=== PATIENT | female | born 1970 | race Caucasian/White ===

== ENCOUNTER → 2020-05-03 13:51 | Outpatient (BNVA) | payer MEDICAID, SELFPAY | PROVIDERS: PCP Registered Nurse; Visit Provider Nurse Practitioner Family | DX: Z01.818 Encounter for other preprocedural examination (principal); K21.9 Gastro-esophageal reflux disease without esophagitis; Z79.899 Other long term (current) drug therapy | CPT/HCPCS: 99212 ==

== ENCOUNTER 2020-09-06 11:42 | Outpatient (REF) | payer MEDICAID, SELFPAY ==
--- NOTE | ~2020-09-06 | MM_ITS ---
EXAMINATION: MM SCREENING DIGITAL BREAST TOMOSYNTHESIS, BILATERAL CLINICAL INFORMATION: Screening. Asymptomatic. The lifetime risk of breast cancer based on the Tyrer-Cuzick Model is 4%. COMPARISON: Mammography: 04/02/2019, 10/09/2017 TECHNIQUE: Digital breast tomosynthesis is performed in both the craniocaudal and mediolateral oblique views along with computer-aided detection (CAD). Synthesized 2D images are generated from the tomosynthesis. FINDINGS: There are scattered areas of fibroglandular density (ACR BI-RADS breast composition Category b). There are no significant masses, abnormal calcifications, or other abnormalities. Parenchymal pattern is similar to prior exams. No developing density. No significant changes. The skin contours are smooth. MM/MM tomosynthesis screening BI IMPRESSION: No mammographic evidence of malignancy. ASSESSMENT: BI-RADS 1: Negative RECOMMENDATION: Routine annual mammography screening. This patient's information was entered into a reminder system with a target due date for their next mammogram.
== END 2020-09-06 11:43 | disposition home or self-care (01) ==
LOC: HO.MAMMO 11:42
PROVIDERS: PCP Registered Nurse; Visit Provider Registered Nurse
DX: Z12.31 Encounter for screening mammogram for malignant neoplasm of breast (principal)
CPT/HCPCS: 77063; 77067

== ENCOUNTER 2020-09-21 07:56 | Outpatient (REF) | payer MEDICAID, SELFPAY ==
--- NOTE | ~2020-09-21 | XR_ITS ---
EXAMINATION: XR BILATERAL HAND/WRIST CLINICAL INFORMATION: Pain bilateral hand. COMPARISON: None. TECHNIQUE: 3 views each hand. FINDINGS: Left hand: There is minimal loss of PIP and DIP joint space without any bony erosive changes, periarticular spurring. Visualized wrist joints are unremarkable. No soft tissue calcification. Right hand: There is mild loss of PIP and DIP joint space. The MCP and anterior carpal joint space is maintained normal. No bony erosive changes or periarticular spurring. No soft tissue calcification or swelling seen. 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
--- NOTE | ~2020-09-21 | XR_ITS ---
EXAMINATION: XR BILATERAL HAND/WRIST CLINICAL INFORMATION: Pain bilateral hand. COMPARISON: None. TECHNIQUE: 3 views each hand. FINDINGS: Left hand: There is minimal loss of PIP and DIP joint space without any bony erosive changes, periarticular spurring. Visualized wrist joints are unremarkable. No soft tissue calcification. Right hand: There is mild loss of PIP and DIP joint space. The MCP and anterior carpal joint space is maintained normal. No bony erosive changes or periarticular spurring. No soft tissue calcification or swelling seen. 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
[2020-09-21 09:47] LABS: MANUAL DIFF FLAG NO
[2020-09-21 09:53] LABS: Basophils Absolute Auto 0.1 X10*3/uL (0.0-0.2); Basophils Percent Auto 0.8 % (0-2); Eosinophils Absolute Auto 0.4 X10*3/uL (0.0-0.4); Hemoglobin 12.5 g/dl (12.0-16.0); Imm Gran Abs Auto 0.01 X10*3/uL (0.00-0.03); Imm Gran Pct Auto 0.1 % (0.0-0.4); Lymphocytes Absolute Auto 3.8 X10*3/uL (1.2-4.9); Lymphocytes Percent Auto 39.3 % (20-40); Mean Corpuscular HGB Conc 32.9 g/dl (31.0-35.0); Mean Corpuscular Hemoglobin 30.6 pg (27.0-33.0); Mean Corpuscular Volume 93.1 fL (80-98); Mean Platelet Volume 11.9 fL (9.4-12.3); Monocytes Absolute Auto 0.7 X10*3/uL (0.1-1.2); Monocytes Percent Auto 7.4 % (2-11); Neutrophils Absolute Auto 4.7 X10*3/uL (2.0-8.3); Neutrophils Percent Auto 48.4 % (45-73); Platelet Count 265 X10*3/uL (160-400); Red Blood Count 4.08 X10*6/uL (4.20-5.50); Red Cell Distribution Width 13.9 % (11.0-16.0); White Blood Count 9.6 X10*3/uL (4.8-10.8)
[2020-09-21 10:28] LABS: Rheumatoid Factor < 15.0 IU/mL (<15.0)
[2020-09-21 10:34] LABS: Alanine Aminotransferase 49 U/L (0-31); Albumin Level 4.5 g/dL (3.5-5.0); Alkaline Phosphatase 77 U/L (39-117); Anion Gap 13 (12-20); Aspartate Amino Transferase 38 U/L (5-31); Bilirubin Total 0.6 mg/dL (0.0-1.0); Blood Urea Nitrogen 12 mg/dL (9-16); C Reactive Protein 0.95 mg/dL (< or = 0.50); Calcium 9.6 mg/dL (8.4-10.2); Carbon Dioxide 29 mmol/L (22-29); Chloride 102 mmol/L (96-108); Estimated Glomerular Filt Rate > 60; Glucose Random 81 mg/dL (60-115); Sodium 140 mmol/L (135-145); Total Protein 7.8 g/dL (6.5-8.0)
[2020-09-21 10:37] LABS: HBsAGNum1 0.17 S/CO (0.00-0.99); Hepatitis B Surface Antigen Negative (Negative); ~HepC Num1 0.16 S/CO (0.00-0.79); ~Hepatitis C Antibody Nonreactive (Nonreactive)
[2020-09-21 10:38] LABS: HBS Num1 0.51 mIU/mL (0-7.99); HBc Num1 0.07 S/CO (0.00-0.79); Hepatitis A Antibody IgM 0.37 Index (0-0.79); Hepatitis B Core Antibody Nonreactive (Nonreactive); ~Hepatitis A Antibody IgM Nonreactive (Nonreactive); ~Hepatitis B Surface Antibody NONREACTIVE (Nonreactive)
[2020-09-21 10:45] LABS: Erythrocyte Sedimentation Rate 34 MM/HR (0-20)
[2020-09-22 12:01] LABS: Lyme Abs Screen <0.90 index
[2020-09-23 01:57] LABS: Cyclic Citrullinated Peptide <16 UNITS
== END 2020-09-21 07:57 | disposition home or self-care (01) ==
LOC: HO.LAB 07:56
PROVIDERS: PCP Registered Nurse; Visit Provider Student in an Organized Health Care Education/Training Program
DX: M79.641 Pain in right hand (principal); M79.642 Pain in left hand; M79.7 Fibromyalgia
CPT/HCPCS: 36415; 73110; 73130; 80053; 85025; 85652; 86140; 86200; 86431; 86618; 86704; 86706; 86709; 86803; 87340; 99212

== ENCOUNTER → 2020-12-07 08:01 | Outpatient (BNVA) | payer MEDICAID, SELFPAY | PROVIDERS: PCP Registered Nurse; Visit Provider Student in an Organized Health Care Education/Training Program | DX: M79.641 Pain in right hand (principal); M79.642 Pain in left hand; Z79.899 Other long term (current) drug therapy; Z87.891 Personal history of nicotine dependence | CPT/HCPCS: 99212 ==

== ENCOUNTER 2020-12-14 06:21 | Outpatient (REF) | payer MEDICAID, SELFPAY ==
[2020-12-14 08:10] LABS: Mean Corpuscular HGB Conc 32.5 g/dl (31.0-35.0); Mean Corpuscular Hemoglobin 30.5 pg (27.0-33.0); Mean Corpuscular Volume 93.9 fL (80-98); Mean Platelet Volume 12.7 fL (9.4-12.3); Platelet Count 257 X10*3/uL (160-400); Red Blood Count 4.26 X10*6/uL (4.20-5.50); Red Cell Distribution Width 13.8 % (11.0-16.0); White Blood Count 9.5 X10*3/uL (4.8-10.8)
[2020-12-14 08:36] LABS: Alanine Aminotransferase 33 U/L (0-31); Albumin Level 4.4 g/dL (3.5-5.0); Alkaline Phosphatase 81 U/L (39-117); Anion Gap 12 (12-20); Aspartate Amino Transferase 27 U/L (5-31); Bilirubin Total 0.3 mg/dL (0.0-1.0); Blood Urea Nitrogen 12 mg/dL (9-16); Calcium 9.7 mg/dL (8.4-10.2); Carbon Dioxide 30 mmol/L (22-29); Chloride 103 mmol/L (96-108); Estimated Glomerular Filt Rate > 60; Glucose Random 97 mg/dL (60-115); Potassium 4.5 mmol/L (3.3-5.1); Sodium 140 mmol/L (135-145); Total Protein 7.5 g/dL (6.5-8.0)
== END 2020-12-14 06:22 | disposition home or self-care (01) ==
LOC: HO.LAB 06:21
PROVIDERS: Nurse Practitioner Family; PCP Registered Nurse; Visit Provider Student in an Organized Health Care Education/Training Program
DX: Z12.11 Encounter for screening for malignant neoplasm of colon (principal)
CPT/HCPCS: 36415; 80053; 85027

== ENCOUNTER 2020-12-15 07:42 | Outpatient (REF) | payer MEDICAID, SELFPAY ==
--- NOTE | ~2020-12-15 | MR_ITS ---
EXAMINATION: MRI HAND WITH CONTRAST, LEFT CLINICAL INFORMATION: Bilateral hand pain. COMPARISON: Left hand radiograph dated September 21, 2020. TECHNIQUE: MRI of the left hand was performed without administration of IV contrast using a local coil. Multisequence, multiplanar imaging was performed. FINDINGS: Bones: Subchondral edema in the aspects of the lunate and triquetrum respectively. No evidence of pericapsular edema, pericapsular enhancement, osteitis, osseous erosions. The bone marrow signal intensity is within normal limits. No fracture line or bone marrow edema. The joint spaces are maintained. No erosion or periosteal edema. Tendons: The extensor and flexor tendons are intact. Ligaments: The collateral ligaments are intact. The volar and dorsal plates are intact. The visualized sagittal bands are intact. Soft Tissues: The muscles are normal in morphology and signal intensity. No fluid collection. MR/MR hand LT wo/w con IMPRESSION: Left hand: 1. 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 2. No synovitis, osteitis, or erosive changes in the hand appreciated.
== END 2020-12-15 07:43 | disposition home or self-care (01) ==
LOC: HO.MRI 07:42
PROVIDERS: PCP Registered Nurse; Visit Provider Student in an Organized Health Care Education/Training Program
DX: M79.642 Pain in left hand (principal); M79.641 Pain in right hand
CPT/HCPCS: 73220; A9585

== ENCOUNTER → 2021-03-09 07:50 | Outpatient (BNVA) | payer MEDICAID, SELFPAY | PROVIDERS: Visit Provider Nurse Practitioner Family | DX: M79.641 Pain in right hand (principal); M79.642 Pain in left hand; M79.7 Fibromyalgia | CPT/HCPCS: 99212 ==

== ENCOUNTER → 2021-06-14 08:43 | Outpatient (BNVA) | payer MEDICAID, SELFPAY | PROVIDERS: PCP Registered Nurse; Visit Provider Advanced Practice Midwife ==

== ENCOUNTER → 2021-07-11 07:37 | Outpatient (BNVA) | payer MEDICAID, SELFPAY | PROVIDERS: PCP Registered Nurse; Visit Provider Nurse Practitioner Family | DX: M79.7 Fibromyalgia (principal) | CPT/HCPCS: 99212 ==

== ENCOUNTER 2021-09-12 09:07 | Outpatient (REF) | payer MEDICAID, SELFPAY ==
--- NOTE | ~2021-09-12 | MM_ITS ---
EXAMINATION: MM SCREENING DIGITAL BREAST TOMOSYNTHESIS, BILATERAL CLINICAL INFORMATION: Screening. Asymptomatic. The lifetime risk of breast cancer based on the Tyrer-Cuzick Model is 4%. COMPARISON: Mammography: 09/06/2020, 04/02/2019, 10/09/2017 TECHNIQUE: Digital breast tomosynthesis is performed in both the craniocaudal and mediolateral oblique views along with computer-aided detection (CAD). Synthesized 2D images are generated from the tomosynthesis. FINDINGS: There are scattered areas of fibroglandular density (ACR BI-RADS breast composition Category b). There are no significant masses, abnormal calcifications, or other abnormalities. Parenchymal pattern is similar to prior studies. There are no significant changes. MM/MM tomosynthesis screening BI IMPRESSION: No mammographic evidence of malignancy. ASSESSMENT: BI-RADS 1: Negative RECOMMENDATION: Routine annual mammography screening. This patient's information was entered into a reminder system with a target due date for their next mammogram.
== END 2021-09-12 09:08 | disposition home or self-care (01) ==
LOC: HO.MAMMO 09:07
PROVIDERS: Visit Provider Registered Nurse
DX: Z12.31 Encounter for screening mammogram for malignant neoplasm of breast (principal)
CPT/HCPCS: 77063; 77067

== ENCOUNTER 2021-10-30 07:47 | Outpatient (REF) | payer MEDICAID, SELFPAY ==
--- NOTE | ~2021-10-30 | XR_ITS ---
EXAMINATION: XR KNEE, RIGHT XR HIP, RIGHT CLINICAL INFORMATION: Pain. COMPARISON: None TECHNIQUE: Right knee 4 views and right hip 2 views. FINDINGS: RIGHT KNEE: The tricompartment joint space is maintained normal. No visible acute fracture, dislocation subluxation seen. No abnormal joint effusion or loose body seen. RIGHT HIP: There is no visible acute fracture, dislocation or subluxation. The joint space is maintained normal. The soft tissues are normal. There are numerous phleboliths in the pelvis. XR/XR hip RT min 2V IMPRESSION: RIGHT HIP: Unremarkable right hip exam. RIGHT KNEE: Unremarkable right knee exam.
--- NOTE | ~2021-10-30 | XR_ITS ---
EXAMINATION: XR KNEE, RIGHT XR HIP, RIGHT CLINICAL INFORMATION: Pain. COMPARISON: None TECHNIQUE: Right knee 4 views and right hip 2 views. FINDINGS: RIGHT KNEE: The tricompartment joint space is maintained normal. No visible acute fracture, dislocation subluxation seen. No abnormal joint effusion or loose body seen. RIGHT HIP: There is no visible acute fracture, dislocation or subluxation. The joint space is maintained normal. The soft tissues are normal. There are numerous phleboliths in the pelvis. XR/XR knee RT 4V IMPRESSION: RIGHT HIP: Unremarkable right hip exam. RIGHT KNEE: Unremarkable right knee exam.
== END 2021-10-30 07:48 | disposition home or self-care (01) ==
LOC: HO.XRAY 07:47
PROVIDERS: Absent Provider Registered Nurse Community Health; PCP Registered Nurse Community Health; Visit Provider Family Medicine
DX: M25.561 Pain in right knee (principal); M25.551 Pain in right hip
CPT/HCPCS: 73502; 73564

== ENCOUNTER 2021-12-25 07:35 | Outpatient (REF) | payer MEDICAID, SELFPAY ==
[2021-12-25 08:19] LABS: Hematocrit 39.7 % (37.0-47.0); Mean Corpuscular HGB Conc 32.7 g/dl (31.0-35.0); Mean Corpuscular Hemoglobin 30.2 pg (27.0-33.0); Mean Corpuscular Volume 92.1 fL (80.0-98.0); Mean Platelet Volume 11.9 fL (9.4-12.3); Platelet Count 272 X10*3/uL (160-400); Red Blood Count 4.31 X10*6/uL (4.20-5.50); Red Cell Distribution Width 13.3 % (11.0-16.0); White Blood Count 8.6 X10*3/uL (4.8-10.8)
[2021-12-25 08:29] LABS: Estimated Average Glucose 114 mg/dL; Hemoglobin A1c % 5.6 %
[2021-12-25 08:44] LABS: Alanine Aminotransferase 39 U/L (0-31); Albumin Level 4.2 g/dL (3.5-5.0); Alkaline Phosphatase 86 U/L (39-117); Anion Gap 15 (12-20); Aspartate Amino Transferase 34 U/L (5-31); Bilirubin Total 0.7 mg/dL (0.0-1.0); Blood Urea Nitrogen 12 mg/dL (9-16); Calcium 9.9 mg/dL (8.4-10.2); Carbon Dioxide 27 mmol/L (22-29); Chloride 104 mmol/L (96-108); Cholesterol 189 mg/dL; Estimated Glomerular Filt Rate > 60; Glucose Random 96 mg/dL (60-115); HDL Cholesterol 41 mg/dL; LDL Cholesterol Calculated 113 mg/dl; Potassium 4.2 mmol/L (3.3-5.1); Sodium 142 mmol/L (135-145); Total Protein 7.6 g/dL (6.5-8.0); Triglycerides 178 mg/dL
[2021-12-25 09:00] LABS: HIV AB/AG Nonreactive (Nonreactive); HIV Num 1 0.07 S/CO (0.00-0.99); ~HepC Num1 0.13 S/CO (0.00-0.79); ~Hepatitis C Antibody Nonreactive (Nonreactive)
[2021-12-25 09:07] LABS: TSH reflex Free T4 1.47 uIU/mL (0.32-4.0); Vitamin D 25-OH Total 41.3 ng/mL (>30)
== END 2021-12-25 07:36 | disposition home or self-care (01) ==
LOC: HO.LAB 07:35
PROVIDERS: PCP Registered Nurse Community Health; Visit Provider Registered Nurse Community Health
DX: Z00.00 Encounter for general adult medical examination without abnormal findings (principal); Z11.4 Encounter for screening for human immunodeficiency virus [HIV]; I10 Essential (primary) hypertension; E66.9 Obesity, unspecified
CPT/HCPCS: 36415; 80053; 80061; 82306; 83036; 84443; 85027; 86803; 87389

== ENCOUNTER → 2022-03-14 10:12 | Outpatient (BNVA) | payer MEDICAID, SELFPAY | PROVIDERS: PCP Registered Nurse Community Health; Visit Provider Nurse Practitioner Family | DX: M79.7 Fibromyalgia (principal) | CPT/HCPCS: 99212 ==

== ENCOUNTER 2022-09-19 08:38 | Outpatient (REF) | payer MEDICAID, SELFPAY ==
--- NOTE | ~2022-09-19 | MM_ITS ---
EXAMINATION: MM SCREENING DIGITAL BREAST TOMOSYNTHESIS, BILATERAL CLINICAL INFORMATION: Screening. Asymptomatic. The lifetime risk of breast cancer based on the Tyrer-Cuzick Model is 4%. COMPARISON: Mammography: 09/12/2021, 09/06/2020, 04/02/2019 TECHNIQUE: Digital breast tomosynthesis is performed in both the craniocaudal and mediolateral oblique views along with computer-aided detection (CAD). Synthesized 2D images are generated from the tomosynthesis. FINDINGS: There are scattered areas of fibroglandular density (ACR BI-RADS breast composition Category b). There are no significant masses, abnormal calcifications, or other abnormalities. Parenchymal pattern is similar to prior studies. There is no developing density or architectural abnormality. The axilla and skin contours are unremarkable. No significant changes. MM/MM tomosynthesis screening BI IMPRESSION: No mammographic evidence of malignancy. ASSESSMENT: BI-RADS 1: Negative RECOMMENDATION: Routine annual mammography screening. This patient's information was entered into a reminder system with a target due date for their next mammogram.
== END 2022-09-19 08:39 | disposition home or self-care (01) ==
LOC: HO.MAMMO 08:38
PROVIDERS: Visit Provider Registered Nurse
DX: Z12.31 Encounter for screening mammogram for malignant neoplasm of breast (principal)
CPT/HCPCS: 77063; 77067

== ENCOUNTER 2023-02-28 06:31 | Outpatient (REF) | payer MEDICAID, SELFPAY ==
[2023-02-28 07:53] LABS: Alanine Aminotransferase 22 U/L (0-31); Albumin Level 4.1 g/dL (3.5-5.0); Alkaline Phosphatase 85 U/L (39-117); Anion Gap 11 (12-20); Aspartate Amino Transferase 24 U/L (5-31); Bilirubin Direct 0.2 mg/dL (0.0-0.5); Bilirubin Total 0.6 mg/dL (0.0-1.0); Blood Urea Nitrogen 12 mg/dL (9-16); Carbon Dioxide 27 mmol/L (22-29); Chloride 106 mmol/L (96-108); Cholesterol 198 mg/dL (<200); Estimated Glomerular Filt Rate > 60; Glucose Random 98 mg/dL (60-115); HDL Cholesterol 48 mg/dL (>40); LDL Cholesterol Calculated 123 mg/dL (<100); Sodium 140 mmol/L (135-145); Total Protein 7.7 g/dL (6.5-8.0); Triglycerides 135 mg/dL (<150)
[2023-02-28 08:00] LABS: HIV AB/AG Nonreactive (Nonreactive); HIV Num 1 0.07 S/CO (0.00-0.99)
[2023-02-28 08:02] LABS: TSH reflex Free T4 1.25 uIU/mL (0.32-4.0); Vitamin D 25-OH Total 43.5 ng/mL (>30)
[2023-02-28 14:13] LABS: CT PCR NOT DETECTED (Not Detect.); NG PCR NOT DETECTED (Not Detect.)
[2023-03-01 03:51] LABS: Syphilis Screen Nonreactive (Nonreactive)
[2023-03-01 16:28] LABS: HCV Log PCR <1.18 NOT DETECTED Log IU/mL (NOT DETECTED); HepC Viral Load <15 NOT DETECTED IU/mL (NOT DETECTED)
== END 2023-02-28 06:32 | disposition home or self-care (01) ==
LOC: HO.LAB 06:31
PROVIDERS: PCP Registered Nurse; Visit Provider Registered Nurse
DX: Z00.00 Encounter for general adult medical examination without abnormal findings (principal); Z11.4 Encounter for screening for human immunodeficiency virus [HIV]; Z11.3 Encounter for screening for infections with a predominantly sexual mode of transmission
CPT/HCPCS: 0353U; 80048; 80061; 80076; 82306; 84443; 86780; 87389; 87522

== ENCOUNTER 2023-06-26 09:50 | Outpatient (REF) | payer MEDICAID, SELFPAY ==
[2023-06-26 12:10] LABS: Alanine Aminotransferase 48 U/L (0-31); Albumin Level 4.3 g/dL (3.5-5.0); Alkaline Phosphatase 87 U/L (39-117); Aspartate Amino Transferase 46 U/L (5-31); Bilirubin Direct < 0.2 mg/dL (0.0-0.5); Bilirubin Total 0.2 mg/dL (0.0-1.0); Cholesterol 101 mg/dL (<200); HDL Cholesterol 38 mg/dL (>40); LDL Cholesterol Calculated 38 mg/dL (<100); Total Protein 7.9 g/dL (6.5-8.0); Triglycerides 126 mg/dL (<150)
[2023-06-26 12:31] LABS: Vitamin B12 598 pg/mL (200-900)
== END 2023-06-26 09:51 | disposition home or self-care (01) ==
LOC: HO.HHCL 09:50
PROVIDERS: Visit Provider Registered Nurse
DX: E78.00 Pure hypercholesterolemia, unspecified (principal); K76.0 Fatty (change of) liver, not elsewhere classified
CPT/HCPCS: 36415; 80061; 80076; 82607

== ENCOUNTER 2023-08-13 08:09 | Outpatient (REF) | payer MEDICAID, SELFPAY ==
--- NOTE | ~2023-08-13 | MM_ITS ---
EXAMINATION: MM DIAGNOSTIC DIGITAL BREAST TOMOSYNTHESIS, BILATERAL US BREAST LIMITED, RIGHT MAMMOGRAPHY: CLINICAL INFORMATION: 53-year-old female complaining of superior breast pain x2-3 months spanning the 11-1:00 axis. No palpable foci. No additional complaint. Patient states fibromyalgia. Patient also due for bilateral screening. No family history of breast CA. COMPARISON: Mammography: 09/19/2022, 09/12/2021, 09/06/2020, 04/02/2019, and dating back to 2013. TECHNIQUE: Digital breast tomosynthesis is performed in both the craniocaudal and mediolateral oblique views along with computer-aided detection (CAD). Synthesized 2D images are generated from the tomosynthesis. In addition, full-field right 3-D mediolateral view was also obtained. FINDINGS: There are scattered areas of fibroglandular density (ACR BI-RADS breast composition Category b). There are no suspicious masses, suspicious grouped calcifications, or areas of architectural distortion in either breast. The parenchymal pattern is stable from prior exams. No mammographic abnormality in the superior right breast in the region of breast pain, which was marked by the technologist with the aid of the patient. No skin or axillary abnormalities. ULTRASOUND: CLINICAL INFORMATION: As above. COMPARISON: None TECHNIQUE: Targeted sonographic evaluation right breast was performed using a high frequency linear transducer. Attention was given to the 10-2 o'clock axis right breast. Selected archived documentation. FINDINGS: RIGHT BREAST: There is a mixture of fatty and fibroglandular tissue. No suspicious mass is seen. There is no pathologic acoustic shadowing. There is no cystic abnormality. No ultrasound correlate to the region of breast pain in the 10-2 o'clock axis of the right breast. MM/MM tomosynthesis diagnostic BI IMPRESSION: There are no findings suspicious for malignancy in either breast. Region of right breast pain superiorly shows no mammographic or sonographic correlate. Recommend clinical management. Otherwise, recommend resuming routine annual screening mammography. OVERALL ASSESSMENT: Mammography: BI-RADS 1 - Negative Ultrasound: BI-RADS 1 - Negative RECOMMENDATION: 1 year F/U Results were provided to the patient at time of visit by the technologist. This patient's information was entered into a reminder system with a target due date for their next mammogram.
== END 2023-08-13 08:10 | disposition home or self-care (01) ==
LOC: HO.MAMMO 08:09
PROVIDERS: PCP Registered Nurse; Visit Provider Registered Nurse
DX: N64.4 Mastodynia (principal)
CPT/HCPCS: 76642; 77062; 77066

== ENCOUNTER → 2023-08-13 08:30 | Outpatient (BNV) | payer MEDICAID, SELFPAY | PROVIDERS: PCP Registered Nurse; Visit Provider Radiology Diagnostic Radiology | DX: N64.4 Mastodynia (principal) | CPT/HCPCS: 76642; 77062; 77066 ==

== ENCOUNTER 2023-10-17 11:32 | Outpatient (REF) | payer MEDICAID, SELFPAY ==
[2023-10-17 13:51] LABS: Alanine Aminotransferase 21 U/L (0-31); Albumin Level 4.1 g/dL (3.5-5.0); Alkaline Phosphatase 79 U/L (39-117); Aspartate Amino Transferase 22 U/L (5-31); Bilirubin Direct 0.2 mg/dL (0.0-0.5); Bilirubin Total 0.3 mg/dL (0.0-1.0); Total Protein 7.7 g/dL (6.5-8.0)
[2023-10-17 13:58] LABS: Rheumatoid Factor < 13.0 IU/mL (<15.0)
[2023-10-17 14:16] LABS: Erythrocyte Sedimentation Rate 26 MM/HR (0-20)
[2023-10-18 03:51] LABS: HBS Num1 0.39 mIU/mL (0-7.99); HBsAGNum1 0.38 S/CO (0.00-0.99); Hepatitis B Core Antibody Nonreactive (Nonreactive); Hepatitis B Surface Antigen Negative (Negative); ~Hepatitis B Surface Antibody NONREACTIVE (Nonreactive)
[2023-10-20 10:54] LABS: Anti Nuclear Antibody Screen NEGATIVE (NEGATIVE)
== END 2023-10-17 11:33 | disposition home or self-care (01) ==
LOC: HO.HHCL 11:32
PROVIDERS: Visit Provider Registered Nurse
DX: K76.0 Fatty (change of) liver, not elsewhere classified (principal); M79.7 Fibromyalgia
CPT/HCPCS: 36415; 80076; 85652; 86038; 86140; 86431; 86704; 86706; 87340

== ENCOUNTER 2023-10-25 10:31 | Outpatient (REF) | payer MEDICAID, SELFPAY ==
--- NOTE | ~2023-10-25 | XR_ITS ---
EXAMINATION: XR KNEE, LEFT CLINICAL INFORMATION: Left knee series COMPARISON: None available. TECHNIQUE: Four views of the left knee. FINDINGS: No fracture or joint effusion. Alignment is anatomic. Joint spaces are maintained. No abnormal soft tissue calcification. XR/XR knee LT 4V IMPRESSION: Normal left knee.
== END 2023-10-25 10:32 | disposition home or self-care (01) ==
LOC: HO.XRAY 10:31
PROVIDERS: PCP Registered Nurse; Visit Provider Registered Nurse
DX: M25.562 Pain in left knee (principal); G89.29 Other chronic pain
CPT/HCPCS: 73564

== ENCOUNTER 2024-09-24 07:16 | Outpatient (REF) | payer MEDICAID, SELFPAY ==
[2024-09-24 07:40] LABS: MANUAL DIFF FLAG NO
[2024-09-24 07:48] LABS: Basophils Absolute Auto 0.1 X10*3/uL (0.0-0.2); Basophils Percent Auto 0.7 % (0-2); Eosinophils Absolute Auto 0.5 X10*3/uL (0.0-0.4); Eosinophils Percent Auto 5.3 % (0-4); Hematocrit 37.3 % (37.0-47.0); Hemoglobin 12.3 g/dl (12.0-16.0); Imm Gran Abs Auto 0.02 X10*3/uL (0.00-0.03); Imm Gran Pct Auto 0.2 % (0.0-0.4); Lymphocytes Absolute Auto 2.7 X10*3/uL (1.2-4.9); Lymphocytes Percent Auto 29.7 % (20-40); Mean Corpuscular Hemoglobin 30.6 pg (27.0-33.0); Mean Corpuscular Volume 92.8 fL (80.0-98.0); Mean Platelet Volume 11.5 fL (9.4-12.3); Monocytes Absolute Auto 0.5 X10*3/uL (0.1-1.2); Monocytes Percent Auto 5.2 % (2-11); Neutrophils Absolute Auto 5.3 x10*3/uL (2.0-8.3); Neutrophils Percent Auto 58.9 % (45-73); Platelet Count 244 X10*3/uL (160-400); Red Blood Count 4.02 X10*6/uL (4.20-5.50); Red Cell Distribution Width 14.1 % (11.0-16.0); White Blood Count 9.1 X10*3/uL (4.8-10.8)
[2024-09-24 07:55] LABS: Estimated Average Glucose 126 mg/dL; Total Hemoglobin (HGBA1C) 3208.5862 umol/L
[2024-09-24 08:26] LABS: Alanine Aminotransferase 32 U/L (0-31); Albumin Level 3.8 g/dL (3.5-5.0); Alkaline Phosphatase 83 U/L (39-117); Anion Gap 10 (12-20); Aspartate Amino Transferase 34 U/L (5-31); Bilirubin Total 0.4 mg/dL (0.0-1.0); Blood Urea Nitrogen 10 mg/dL (9-16); Carbon Dioxide 26 mmol/L (22-29); Chloride 108 mmol/L (96-108); Cholesterol 100 mg/dL (<200); Estimated Glomerular Filt Rate > 60; Glucose Random 123 mg/dL (60-115); HDL Cholesterol 40 mg/dL (>40); LDL Cholesterol Calculated 42 mg/dL (<100); Potassium 3.6 mmol/L (3.3-5.1); Sodium 140 mmol/L (135-145); Total Protein 7.4 g/dL (6.5-8.0); Triglycerides 93 mg/dL (<150)
[2024-09-24 08:32] LABS: Microalbum/Creatinine Ratio Ur 5.1 ug/mg cr (<30)
[2024-09-24 08:35] LABS: Erythrocyte Sedimentation Rate 28 MM/HR (0-20)
[2024-09-24 08:40] LABS: HIV AB/AG Nonreactive (Nonreactive)
[2024-09-24 08:42] LABS: TSH reflex Free T4 1.47 uIU/mL (0.32-4.0)
[2024-09-25 12:38] LABS: RPR Rapid Plasma Reagin NON-REACTIVE (NON-REACTIVE)
[2024-09-25 14:48] LABS: HCV Log PCR <1.18 NOT DETECTED Log IU/mL (NOT DETECTED); HepC Viral Load <15 NOT DETECTED IU/mL (NOT DETECTED)
== END 2024-09-24 07:17 | disposition home or self-care (01) ==
LOC: HO.LAB 07:16
PROVIDERS: PCP Registered Nurse; Visit Provider Registered Nurse
DX: Z00.00 Encounter for general adult medical examination without abnormal findings (principal)
CPT/HCPCS: 36415; 80053; 80061; 82043; 82570; 83036; 84443; 85025; 85652; 86592; 87389; 87522

== ENCOUNTER 2024-11-12 07:30 | Outpatient (REF) | payer MEDICAID, SELFPAY ==
--- OUTSIDE RECORDS SUMMARY | 2024-11-12 07:33 | XMS_ITS | Encounter Summary ---
Author Organization [employer] Address [address] [place] [address] Care Team Providers Care Ships Equipment Engineer Name Role Phone Maria Teresa Levin [employer] Primary Care Provider [phone] Encounter Details Date Type Department Care Team (Latest Contact Info) Description 11/11/2024 Travel Social History Tobacco Use Types Packs/Day Years Used Date Smoking Tobacco: Every Day Cigarettes Smokeless Tobacco: Never Alcohol Use Standard Drinks/Week Comments Never 0 (1 standard drink = 0.6 oz pur e alcohol) Housing Stability Answer Date Recorded What is your housing situation today? I have yola garcia 10/16/[address] you li ve. Do you have problems with any of the following? None of the above 10/16/2023 Food Insecurity Answer Date Recorded Within the past 12 months, y ou worried that your food would run out before you got money to buy more: Never True 10/16/2023 Within the past 12 months,th e food you bought just didn't last and you didn't have enough money to get more: Never True 04/2024 Transportation Answer Date Recorded In the past 12 months, has l ack of transportation kept you from medical appts, meetings, work or from getting things needed for daily living? No 10/16/2023 Utilities Answer Date Recorded In the past 12 months, has t he electric, gas, oil or water company threatened to shut off services in your home? No 10/16/2023 Depression Answer Date Recorded Patient Health Questionnaire-2 Score 0 10/16/2023 Comments No Sex and Gender Information Value Date Recorded Sex Assigned at Female 05/07/2022 10:30 AM EDT Legal Sex Female 10:30 AM EDT Gender Identity Female 05/07/2022 10:30 AM EDT Sexual Orientation Choose not to disclose 2021 10:30 AM EDT documented as of this encounter Plan of Treatment Upcoming Encounters Date Type Department Care Team (Late st Contact Info) Description 11/18/2024 9:00 AM EDT Office Visit [facility] [address] [place] [address] Maria Teresa Levin FNP [address] [place] [address] 01/18/2025 1:30 PM EDT Telemedicine [facility] [address] [place] [address] 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, RN [address] [place], [place] [id number] documented as of this encounter Visit Diagnoses Not on filedocumented in this encounter Care Teams Ships Equipment Engineer Relationship Specialty Start Date End Date Maria Teresa Levin FNP [address] [place] [address] PCP - General Family Medicine 03/06/22 documented as of this encounter
--- OUTSIDE RECORDS SUMMARY | 2024-11-12 07:33 | XMS_ITS | Encounter Summary ---
Author Organization [employer] Address [address] [place] [address] Care Team Providers Care Game Room Attendant Name Role Phone Maria Teresa Levin MERVIN Primary Care Provider [phone] Reason for Visit * Reason Onset Date Comments Med Refill 01/01/2024 Encounter Details Date Type Department Care Team ([facility] st Contact Info) Description 01/01/2024 Refill [facility] [address] [place] [address] John Green MD [address] [place] [id number] Fibromyalgia Social History Tobacco Use Types Packs/Day Years Used Date Smoking Tobacco: Every Day Cigarettes Smokeless Tobacco: Never Alcohol Use Standard Drinks/Week Comments Never 0 (1 standard drink = 0.6 oz pur e alcohol) Housing Stability Answer Date Recorded What is your housing situation today? I have yolavangie garcia 10/16/[address] you [...] the past 12 months, has t he [employer], [employer], oil or water company threatened to shut off services in your home? No 10/16/2023 Depression Answer Date Recorded Patient Health Questionnaire-2 Score 0 10/16/2023 Comments Unknown Sex and Gender Information Value Date Recorded [...] Description 11/18/2024 9:00 AM EDT Office Visit [facility] [address] [place] [address] Maria Teresa Levin FNP [address] [place] [address] 01/18/2025 1:30 PM EDT Telemedicine [facility] [address] [place] [address] 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, RN [address] [place] [address] documented as of this encounter Visit Diagnoses Diagnosis Fibromyalgia Unspecified myalgia and myositis documented in this encounter Care Teams Game Room Attendant Relationship Specialty Start Date End Date Maria Teresa Levin FNP [address] [place] [address] PCP - General Family Medicine 03/06/22 documented as of this encounter
--- OUTSIDE RECORDS SUMMARY | 2024-11-12 07:33 | XMS_ITS | Clinical Summary ---
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 rosuvastatin (Crestor) 10 MG tablet TAKE 1 TABLET(10 MG) BY MOUTH AT BEDTIME FOR CHOLESTEROL 90 tablet 3 024 Active hydroCHLOROthia zide 12.5 MG tablet TAKE 1 TABLET(12.5 MG) BY MOUTH IN THE MORNING 90 tablet 3 024 Active cholecalciferol (Vitamin D3) 25 MCG (1000 UT) tablet TAKE 1 TABLET BY MOUTH ONCE DAILY 90 tablet 3 024 Active losartan (Cozaar) 50 MG tabletIndicatio ns:Essential hypertension Take 1 tablet (50 mg) by mouth Once daily. (For Blood Pressure) 90 tablet 3 025 Active loratadine (Claritin) 10 MG tabletIndicatio ns:Seasonal allergies Take 1 tablet (10 mg) by mouth if needed each day for allergies. 90 tablet 3 025 Active albuterol (2.5 MG/3ML) 0.083% nebulizer solutionIndicat ions:Wheezing Take 3 mL (2.5 mg) by nebulization every 4 (four) hours if needed for wheezing. 75 mL 3 025 2025 Active Nebulizers miscIndications :Wheezing Use nebulizer as instructed 1 each Active Respiratory Therapy Supplies (Nebulizer/Tubi ng/Mouthpiece) kitIndications: Wheezing To be used with Nebulizer 1 kit 1 Active celecoxib (CeleBREX) 200 MG capsuleIndicati ons:Fibromyalgi a TAKE 1 CAPSULE(200 MG) BY MOUTH IN THE MORNING AND AT BEDTIME NEEDED FOR MODERATE PAIN 60 capsule 3 025 Active albuterol (Ventolin HFA) 108 (90 Base) MCG/ACT inhalerIndicati ons:Wheezing INHALE 2 PUFFS BY MOUTH EVERY 4 HOURS NEEDED FOR WHEEZING 18 g 3 025 Active omeprazole (PriLOSEC) [address] capsuleIndicati ons:Gastroesoph ageal reflux disease, unspecified whether esophagitis present TAKE 1 CAPSULE BY MOUTH EVERY DAY BEFORE A MEAL 90 capsule 3 025 Active cyclobenzaprine (Flexeril) 10 MG tablet TAKE 1 TABLET BY MOUTH AT BEDTIME FOR MUSCLE SPASM 30 tablet 3 025 Active oxyCODONE-aceta minophen (Percocet) 5-325 MG tabletIndicatio ns:Fibromyalgia Take 1 tablet by mouth every 6 (six) hours if needed for severe pain for up to 28 days. 112 tablet 025 2024 Active cyclobenzaprine (Flexeril) 10 MG tablet TAKE 1 TABLET BY MOUTH AT BEDTIME FOR MUSCLE SPASM 30 tablet 3 024 2024 Discontinued oxyCODONE-aceta minophen (Percocet) 5-325 MG tabletIndicatio ns:Fibromyalgia Take 1 tablet by mouth every 6 (six) hours if needed for severe pain for up to 28 days. Do not start before September 30, 2024. 112 tablet 025 2024 Discontinued(R eorder (will not trigger notification to Pharmacy)) Active Problems Problem Noted Date Diagnosed Date Long-term current use of opiate analgesic 2023 Overview (03/23/2024): Medication: Percocet 5-325mg Q6H PRN (30 MME) Indication: fibromyalgia Last CLEANER ASSISTANT Agreement: 09/05/23 Tier II: Q3 month CLEANER ASSISTANT visits (tele OK every other) Assessment & Plan (08/20/2024 12:34 PM EST): Timeline: - 11/04/23: CLEANER ASSISTANT Tele, pill count WNL - 01/01/24: CLEANER ASSISTANT Tele, pill count WNL Assessment & Plan (04/17/2024 1:17 PM EDT): Timeline: - 11/04/23: CLEANER ASSISTANT Tele, pill count WNL - 01/01/24: CLEANER ASSISTANT Tele, pill count WNL - Next CLEANER ASSISTANT scheduled: 04/23/24 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 Declined on 02/11/24, follow up if/when interested in future Pure hypercholesterolemia 03/28/2023 Overview (06/27/2023): ?? Feb 2023: LDL 123, HDL 48, TC 198, TG 135 ?? Continues rosuvastatin 10mg nightly Assessment & Plan (06/27/2023 3:40 PM EST): Repeat lipid panel, liver panel, and VitB12 Assessment & Plan (03/28/2023 12:25 PM EDT): ?? Risk factors: Fam hx CVD, tobacco use ?? ASCVD risk: 6.3% ([employer]illite '08 calc) ?? Shared decision making to continue with lifestyle interventions and initiation mod-intensity statin ?? Start rosuvastatin 10mg nightly. Reviewed med safety and SE Routine health maintenance 07/13/2022 Overview (08/20/2024): Pap: s/p total hysterectomy with prior malignant uterine cervix neoplasm, followed by [facility]. Following with specialist. Mammo: BIRADS 1 on 08/13/23 C-scope: Seen for pre-colonoscopy screening 04/2020. Referred for colonoscopy 02/26/23. Changed mind and now interested in Cologuard - order placed 08/19/24. Eye: discuss at follow up Dental: discuss at follow up Last PE: 02/26/23 Hep B titer status: non-immune Feb 2024, IZ declined Assessment & Plan (08/20/2024 12:33 PM EST): - Declines IZ today, encouraged to consider in future Assessment & Plan (03/28/2023 12:20 PM EDT): PAP: s/p total hysterectomy with prior malignant uterine cervix neoplasm, followed by [facility] [employer]. She will call to schedule f/u. Mammo: BIRADS 1 on 09/19/22 C-scope: Seen for pre-colonoscopy screening 04/2020. Reports completed Cologuard within past few year, normal. Interested in colonoscopy, referred 02/26/23. 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 She will call to schedule f/u. Mammo: 09/12/2021: BIRADS-1. Reports had one earlier this year, will request from [facility]. C-scope: Seen for pre-colonoscopy screening 04/2020. Reports completed Cologuard within past few year, normal. Interested in colonoscopy, referred 02/26/23. 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 She will call to schedule f/u. Mammo: 09/12/2021: BIRADS-1 C-scope: Seen for pre-colonoscopy screening 04/2020. Discuss at follow up Eye: referral to [facility] Dental: discuss at follow up Fatty liver disease, nonalcoholic 09/30/2018 Assessment & Plan (08/20/2024 12:35 PM EST): 12/25/21: ALT 39 U/L and AST 34 U/L 02/28/23: ALT 22 U/L and AST 24 U/L -Hep C neg Feb 2023 -Hep B: eligible as of October 2023 Lab Results Component Value Date AST 22 10/17/2023 ALT 21 10/17/2023 TOTPROTEIN 7.7 10/17/2023 ALB 4.1 10/17/2023 ALP 79 10/17/2023 TOTALBILIRUB 0.3 10/17/2023 -Noting improvement in lab work. Encouraged to continue with lifestyle interventions Assessment & Plan (02/12/2024 5:39 PM EDT): 12/25/21: ALT 39 U/L and AST 34 U/L 02/28/23: ALT 22 U/L and AST 24 U/L -Hep C neg Feb 2023 -Hep B: eligible as of October 2023 Lab Results Component Value Date AST 22 10/17/2023 ALT 21 10/17/2023 TOTPROTEIN 7.7 10/17/2023 ALB 4.1 10/17/2023 ALP 79 10/17/2023 TOTALBILIRUB 0.3 10/17/2023 -Noting improvement in lab work. Encouraged to continue with lifestyle interventions Assessment & Plan (10/17/2023 9:06 AM EDT): 12/25/21: ALT 39 U/L and AST 34 U/L 02/28/23: ALT 22 U/L and AST 24 U/L -Hep C neg Feb 2023 -Encouraged to continue with lifestyle interventions -Repeat hepatic panel and Hep B panel Assessment & Plan (06/27/2023 3:39 PM EST): 12/25/21: ALT 39 U/L and AST 34 U/L 02/28/23: ALT 22 U/L and AST 24 U/L -Hep C neg Feb 2023 -Encouraged to continue with lifestyle interventions -Check Vit B12 levels Assessment & Plan (03/28/2023 11:23 AM EDT): 12/25/21: ALT 39 U/L and AST 34 U/L 02/28/23: ALT 22 U/L and AST 24 U/L -Hep C neg Feb 2023 Congratulated on improvement and encouraged to continue with lifestyle interventions Assessment & Plan (02/26/2023 10:03 AM EDT): ALT 39 U/L and AST 34 U/L on 12/25/21 Repeat liver panel ordered today Essential hypertension 08/12/2018 Overview (08/20/2024): Losartan 50mg daily Hydrochlorothiazide 12.5mg daily Encourage to continue eating a low salt heart healthy diet rich in fruits/vegetables and to exercise 150 min a week. Assessment & Plan (08/20/2024 12:35 PM EST): -Well controlled, cont current regimen Assessment & Plan (02/12/2024 5:40 PM EDT): -Check BMP in 2 weeks -Continues losartan 50mg daily; re-start hydrochlorothiazide 12.5mg - Encourage to continue eating a low salt heart healthy diet rich in fruits/vegetables and to exercise 150 min a week. - ED precautions Assessment & Plan (03/28/2023 12:15 PM EDT): -Well controlled -Continues with losartan 50mg daily and hydrochlorothiazide 12.5mg (using daily or every other day) - Encourage to continue eating a low salt heart healthy diet rich in fruits/vegetables and to exercise 150 min a week. - ED precautions Assessment & Plan (02/26/2023 10:07 AM EDT): -Well controlled -Continues with losartan 50mg daily and hydrochlorothiazide 12.5mg (using daily or every other day) - Encourage to continue eating a low salt heart healthy diet rich in fruits/vegetables and to exercise 150 min a week. - Please contact office or go to ED if they are having symptoms (Chest pain, palpitations, Shortness of Breath, H/A, dizziness and a b/p reading over 140/90). Assessment & Plan (07/14/2022 11:54 AM EST): -Well controlled on losartan-HCTZ 50-12.5mg daily, pt tolerating well without side effects. - Patient advised to continue eating a low salt heart healthy diet rich in fruits/vegetables and to exercise 150 min a week. - Patient to contact office or go to ED if they are having symptoms (Chest pain, palpitations, Shortness of Breath, H/A, dizziness and a b/p reading over 140/90). Prediabetes 08/12/2018 Overview (06/27/2023): Lab Results Component Value Date HGBA1C 5.9 06/26/2023 ?? Cont lifestyle interventions Assessment & Plan (02/26/2023 10:07 AM EDT): A1c 5.5% on 02/26/23, no longer in prediabetes range Menopausal flushing 07/27/2016 Nicotine dependence 07/27/2016 Assessment & Plan (08/20/2024 12:39 PM EST): Decreased to 3 cigg/day Max pack per day: 0.5 pack Age started smokin14 y/o Pack year history: <20 Plan: pt to decrease on her own. Follow up if interested in NRT and/or further resources Assessment & Plan (02/12/2024 5:41 PM EDT): Currently smoking 4-5 cigg/day Max pack per day: 0.5 pack Age started smokin14 y/o Pack year history: <20 Plan: pt to decrease on her own. Follow up if interested in NRT and/or further resources Assessment & Plan (06/27/2023 3:42 PM EST): Currently smoking 3 cigg/day Max pack per day: 0.5 pack Age started smokin14 y/o Pack year history: <20 Plan: pt to decrease on her own. Follow up if interested in NRT and/or further resources Assessment & Plan (03/28/2023 12:17 PM EDT): Currently smoking 3 cigg/day Max pack per day: 0.5 pack Age started smokin14 y/o Pack year history: <20 Plan: pt to decrease on her own. Follow up if interested in NRT and/or further resources Assessment & Plan (02/26/2023 10:08 AM EDT): Currently smoking 3 cigg/day Max pack per day: 0.5 pack Age started smokin14 y/o Pack year history: <20 Plan: pt to decrease on her own. Follow up if interested in NRT and/or further resources Fibromyalgia 05/07/2016 Assessment & Plan (08/20/2024 12:36 PM EST): -Continues with oxycodone-APAP 5mg Q6H PRN -Continues with cyclobenzaprine PRN, heat, and massage -Encouraged [facility] Acupuncture clinic, and to continue with pharm and non-pharm modalities of pain control -Previously following with [facility] Rheum -Labs: AYAD, RF, neg October 2023. Mild elevation of CRP and sed rate Assessment & Plan (02/12/2024 5:42 PM EDT): -Continues with oxycodone-APAP 5mg Q6H PRN -Continues with cyclobenzaprine PRN, heat, and massage -Encourage [facility] Acupuncture clinic -Previously following with [facility] Rheum -Labs: AYAD, RF, neg October 2023. Mild elevation of CRP and sed rate Assessment & Plan (10/17/2023 9:07 AM EDT): -Continues with oxycodone-APAP 5mg Q8H -Continues with cyclobenzaprine PRN, heat, and massage -Encourage [facility] Acupuncture clinic -Previously following with [facility] Rheum -Plan: trial Celebrex PRN instead of ibuprofen. Reviewed med safety and SE. Repeat lab work including AYAD given polyarthralgias and reported swelling of upper extremities Assessment & Plan (06/27/2023 3:41 PM EST): -Currently controlled with oxycodone-APAP 5mg Q8H -Continues with cyclobenzaprine PRN, heat, and massage -Encourage [facility] Acupuncture clinic and group medical visits -Previously following with [facility]um Assessment & Plan (03/28/2023 12:16 PM EDT): -Currently controlled with oxycodone-APAP 5mg Q8H -Continues with cyclobenzaprine PRN, heat, and massage -Encourage [facility] Acupuncture clinic -Upcoming appt with [facility]um Assessment & Plan (02/26/2023 10:02 AM EDT): -Currently controlled with oxycodone-APAP 5mg. Increase from Q8H to Q6H PRN x 1 month as pt experiencing especially stressful time that is triggering fibro flares. Re-eval in 1 month -Continues with cyclobenzaprine PRN, heat, and massage -Encouraged [facility] Acupuncture clinic -Followed by [facility] Assessment & Plan (07/14/2022 11:58 AM EST): -Currently controlled with oxycodone 5mg Q8H PRN. Will switch back to oxycodone-acetaminophen to eliminate daily use of ibuprofen 800mg TID (following with CLEANER ASSISTANT RN) -Continues with cyclobenzaprine PRN, heat, and massage -Encouraged [facility] Acupuncture clinic -Followed by [facility]um Follow up in 3 months for chronic conditions, sooner as needed. Vitamin D deficiency 05/07/2016 Resolved Problems Problem Noted Date Diagnosed Date Resolved Date Elevated LFTs 08/12/2018 07/14/2022 Encounters * This document contains information received from the source organization and may not represent a complete record from that organization. 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 care (current) use of opiate analgesic 11/04/2024 Telephone [facility] [address] [place] [address] 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 RN 11/04/2024 Travel 11/03/2024 Travel 10/27/2024 Refill [facility] [address] [place] [address] Maria Teresa Levin FNP Fibromyalgia 10/17/2024 Refill [facility] [address] [place] [phone] Maria Teresa Levin FNP 10/14/2024 Travel 10/14/2024 Telephone [facility] [address] [place] [address] 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 RN institution director 10/14/2024 Telephone [facility] [address] [place] [phone] Maria Teresa Levin FNP Appointment Request 10/03/2024 Orders Only [facility] [address] [place] [address] Maria Teresa Levin FNP Gastroesophageal reflux disease, unspecified whether esophagitis present 10/02/2024 Refill [facility] [address] [place] [phone] Maria Teresa Levin FNP Gastroesophageal reflux disease, unspecified whether esophagitis present 09/28/2024 Refill [facility] [address] [place] [address] Maria Teresa Levin FNP Fibromyalgia 09/18/2024 Population Health Risk Score [facility] [address] [place] [address] [phone] Provider, Population Health Generic 09/15/2024 9:00 AM EDT Office Visit [facility] [address] [place] [phone] Shakira Teixeira MD Acute bacterial sinusitis (Primary Dx) 09/14/2024 Telephone [facility] [address] [place] [address] Maria Teresa Levin FNP 09/02/2024 Refill [facility] [address] [place] [address] Maria Teresa Levin FNP Wheezing 09/01/2024 Refill [facility] [address] [place] [address] Maria Teresa Levin FNP Fibromyalgia 08/24/2024 Refill [facility] [address] [place] [address] Maria Teresa Levin FNP Fibromyalgia 08/21/2024 Telephone [facility] [address] [place], [place] [phone] Maria Teresa Levin FNP 08/19/2024 9:00 AM EST Office Visit [facility] [address] [place] [address] Maria Teresa Levin FNP Essential hypertension (Primary Dx); Wheezing; Screening for colon cancer; Healthcare maintenance; Other social stressor; Routine health maintenance; Prediabetes; Cigarette nicotine dependence without complication; Fibromyalgia; Fatty liver disease, nonalcoholic 08/19/2024 Travel from Last 3 Months Family History Medical History Relation Name Comments Arthritis Brother 1 Moncho Bartholomew Hypertension Brother 1 Moncho Bartholomew Stroke Brother 1 Moncho Bartholomew cardiovascular disease Brother 1 Moncho Bartholomew Alcohol abuse Brother 2 Vasiliy Mei Diabetes Mother Diverticulosis Mother Hypertension Mother Cancer Sister Lacy Moran Diabetes Sister Lacy Moran Diverticulosis Sister Lacy Moran Hypertension Sister Lacy Moran Asthma Son Stephane Bartholomew Relation Name Status Comments Brother 1 Moncho Bartholomew Brother 2 Vasiliy Mei Mother Paternal Grandmother Alive Sister Lacy Moran Son Stephane Bartholomew Social History Tobacco Use Types Packs/Day Years Used Date Smoking Tobacco: Every Day Cigarettes Smokeless Tobacco: Never Tobacco Cessation:Ready to Q uit: Not Asked; Counseling Given: Not Answered Alcohol Use Standard Drinks/Week Comments Never 0 [...] the past 12 months, has t he [employer] Card [employer], gas, oil or water company threatened to [...] not to disclose 2021 10:30 AM EDT Last Filed Vital Signs Vital Sign Reading Time Taken Comments Blood Pressure 139/80 09/15/2024 9:06 AM EDT Pulse 88 09/15/2024 9:06 AM EDT Temperature 36.7 ??C (98 ??F) 09/15/2024 9:06 AM EDT Respiratory Rate 16 09/15/2024 9:06 AM EDT Oxygen Saturation 98% 09/15/2024 9:06 AM EDT Inhaled Oxygen Concentration - - Weight 95.3 kg (210 lb) 09/15/2024 9:06 AM EDT Height 157.5 cm (5' 2 ) 08/19/2024 8:52 AM EST Body Mass Index 38.41 08/19/2024 8:52 AM EST Plan of Treatment Upcoming Encounters Date Type Department Care Team (Late st Contact Info) Description 11/18/2024 9:00 AM EDT Office Visit [facility] [address] [place], [place] [phone] Maria Teresa Levin FNP [address] [place], [place] [phone] 01/18/2025 1:30 PM EDT Telemedicine [facility] [address] [place] [address] 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, RN [address] [place] [address] Health Maintenance Due Date Last Done Comments CT Colonography 1969 Colonoscopy 1969 FIT 1969 FOBT 1969 Sigmoidoscopy 1969 Mammogram 08/13/2024 08/13/2023, 12/2023, 09/12/2021, Additional history exists Depression Screening 10/15/2024 10/16/2023, 10/16/19 SDOH Screening 10/15/2024 10/16/2023 Influenza Vaccine (#1) 2025 Postp oned from 03/08/2024 (Patient Refused) Colorectal Cancer Screening 01/09/2025 FIT DNA/Cologuard 01/09/2025 01/09/2022 Alcohol/Substance Use Screening 08/19/2025 08/19/2024 Tobacco Screening 08/19/2025 08/19/2024 COVID-19 Vaccine ( - season) 2025 Postponed from 03/08/2024 (Patient Refused) DTaP/Tdap/Td Vaccines (1 - Tdap) 08/20/2025 Postponed from 1988 (Patient Refused) Hepatitis A Vaccines (1 of 2 - Risk 2-dose series) 08/20/2025 Postponed from 1988 (Patient Refused) Hepatitis B Vaccines (1 of 3 - 19+ 3-dose series) 08/20/2025 Postponed from 1988 (Patient Refused) Pneumococcal Vaccine: 50+ Years (1 of 2 - PCV) 08/20/2025 Postponed from 1988 (Patient Refused) Zoster Vaccines (1 of 2) 08/20/2025 Pos tponed from 2019 (Patient Refused) Diabetes: Hemoglobin A1C 09/24/2025 025, 06/26/2023, 12/25/2021 Lipid Panel 09/24/2029 09/24/2024, 06/08, 02/28/2023 RSV Patients and Patients Aged 60 years or older (1 - 1-dose 75+ series) 2044 HIV Screening Completed 09/24/2024, 02/06, 12/25/2021 Hepatitis C Screening Completed 09/24/2024 , 02/28/2023, 12/25/2021 HIB Vaccines Aged Out No longer eligi ble based on patient's age to complete this topic HPV Vaccines Aged Out No longer eligi ble based on patient's age to complete this topic IPV Vaccines Aged Out No longer eligi ble based on patient's age to complete this topic Meningococcal Vaccine Aged Out No maikel wesley eligible based on patient's age to complete this topic RSV under 20 months Aged Out No longe r eligible based on patient's age to complete this topic Rotavirus Vaccines Aged Out No longer eligible based on patient's age to complete this topic Procedures Procedure Name Priority Date/Time Associated Diagnosis Comments POCT KEZIA-14 URINE DRUG SCREEN Routine 11/04/2024 9:10 AM EDT Chronic pain of left knee prison (current) use of opiate analgesic SED RATE BY MODIFIED WESTERGREN Routine 09/24/2024 7:35 AM EDT Healthcare maintenance HIV 1/2 ANTIGEN/ANTIBODY, FOURTH GENERATION W/RFL Routine 09/24/2024 7:35 AM EDT Healthcare maintenance RPR (MONITOR) W/REFL TITER Routine 09/24/2024 7:35 AM EDT Healthcare maintenance HEPATITIS C VIRAL RNA, QUANTITATIVE, REAL-TIME PCR Routine 09/24/2024 7:35 AM EDT Healthcare maintenance CBC WITH AUTO DIFFERENTIAL Routine 09/24/2024 7:35 AM EDT Healthcare maintenance COMPREHENSIVE METABOLIC PANEL Routine 09/24/2024 7:35 AM EDT Healthcare maintenance TSH W/REFLEX TO FT4 Routine 09/24/2024 7 :35 AM EDT Healthcare maintenance HEMOGLOBIN A1C Routine 09/24/2024 7:35 AM EDT Healthcare maintenance LIPID PANEL, STANDARD Routine 09/24/2024 7:35 AM EDT Healthcare maintenance ALBUMIN, RANDOM URINE W/CREATININE Routine 09/24/2024 7:30 AM EDT Healthcare maintenance BI MAMMOGRAM DIAGNOSTIC TOMOSYNTHESIS BILATERAL Routine 08/13/2023 9:00 AM EST Breast pain in female from Last 3 Months or Most Recently Relevant to Health Maintenance Results * POCT KEZIA-14 Urine Drug Screen (11/04/2024 9:10 AM EDT) TCA, Urine Positive Oxycodone Screen, Urine Positive Urine Urine specimen obtained by clean catch procedure / Unknown 11/04/2024 9:10 AM EDT Narrative 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 RN - 11/04/2024 9:10 AM EDT Lot# [id number] Exp: 02-24-26 Maria Teresa Phaljustus TAG STRINGER POINT OF CARE TEST ENTER/EDIT ORDERABLES Final Result * TSH with Reflex to Free T4 (09/24/2024 7:35 AM EDT) Pathologist [facility] TSH reflex Free T4 1.47 0.32 - 4.0 uIU/mL [facility] Blood 09/24/2024 7:35 AM EDT 09/24/2024 7:35 AM EDT Maria Teresa Phalen [facility] STR[facility] LAB BLOOD ORDERABLES Final Res ult [facility] [address] [place] [phone] * Hepatitis C Viral RNA, Quantitative, Real-Time PCR (09/24/2024 7:35 AM EDT) Pathologist [facility] Hepatitis C Viral Load <15 NOT DETECTED NOT DETECTED IU/mL [facility] HCV Log PCR <1.18 NOT DETECTED NOT DETECTED Log IU/mL [facility] Comment:For additional infor julieth, please refer [email or web address](This link is being provided for informational/educational purposes only.)THIS TEST WAS PERFORMED AT:[email or web address] [place] [phone] BORRERO MD Blood 09/24/2024 7:35 AM EDT 09/24/2024 7:35 AM EDT us Maria Teresa Levin [facility] LAB BLOOD ORDERABLES Final Res ult [facility] [address] [place] [address] [phone] * (ABNORMAL) CBC auto differential (09/24/2024 7:35 AM EDT) White Blood Count 9.1 4.8 - 10.8 X10*3/uL [facility] Red Blood Count 4.02(L) 4.20 - 5.50 X10*6/uL [facility] Hemoglobin 12.3 12.0 - 16.0 g/dl [facility] Hematocrit 37.3 37.0 - 47.0 % [facility] Mean Corpuscular Volume 92.8 80.0 - 98.0 fL [facility] Mean Corpuscular Hemoglobin 30.6 27.0 - 33.0 pg [facility] Mean Corpuscular HGB Conc 33.0 31.0 - 35.0 g/dl [facility] Red Cell Distribution Width 14.1 11.0 - 16.0 % [facility] Platelet Count 244 160 - 400 X10*3/uL [facility] Mean Platelet Volume 11.5 9.4 - 12.3 fL [facility] Neutrophils Percent Auto 58.9 45 - 73 % [facility] Imm Gran Pct Auto 0.2 0.0 - 0.4 % [facility] Lymphocytes Percent Auto 29.7 20 - 40 % [facility] Monocytes Percent Auto 5.2 2 - 11 % [facility] Eosinophils Percent Auto 5.3(H) 0 - 4 % [facility] Basophils Percent Auto 0.7 0 - 2 % [facility] NRBC Pct Auto 0.0 0.0 - 0.2 /100WBC [facility] Neutrophils Absolute Auto 5.3 2.0 - 8.3 x10*3/uL [facility] Imm Gran Abs Auto 0.02 0.00 - 0.03 X10*3/uL [facility] Lymphocytes Absolute Auto 2.7 1.2 - 4.9 X10*3/uL [facility] Monocytes Absolute Auto 0.5 0.1 - 1.2 X10*3/uL [facility] Eosinophils Absolute Auto 0.5(H) 0.0 - 0.4 X10*3/uL [facility] Basophils Absolute Auto 0.1 0.0 - 0.2 X10*3/uL [facility] NRBC Abs Auto 0.000 0.0 - 0.012 X10*3/uL [facility] Blood Venous blood specimen / Unknown 09/24/2024 7:35 AM EDT 09/24/2024 7:35 AM EDT us Maria Teresa Levin [facility] LAB BLOOD ORDERABLES Final Res ult [facility] [address] [place], [place] [phone] * RPR (Monitor) with Reflex to??Titer (09/24/2024 7:35 AM EDT) RPR (Monitor) w/Refl Titer NON-REACTI VE NON-REACT FREDO [facility] Comment:THIS TEST WAS PERFOR MED AT:[email or web address] [place] [id number] BORRERO MD Rapid Plasma Reagin Ab Titer TNP [facility] Blood Venous blood specimen / Unknown 09/24/2024 7:35 AM EDT 09/24/2024 7:35 AM EDT Maria Teresa Levin [facility] LAB BLOOD ORDERABLES Final Res ult Performing Organization Address [facility] Co de Phone Number [facility] [address] [place] [phone] * HIV-1/2 Antigen and Antibodies, Fourth Generation, with Reflexes (09/24/2024 7:35 AM EDT) Pathologist [facility] HIV AB/AG Nonreactive Nonreactive [facility] Comment:HIV-1 p24 Ag and/or HIV-1/HIV-2 Ab not detected.A test result that is nonreactive does not exclude thepossibility of exposure to or infection with HIV-1 and/orHIV-2. Nonreactive results in this assay for individualswith prior exposure to HIV-1 and/or HIV-2 may be due toantigen and antibody levels that are below the limit ofdetection of this assay.The [employer] HIV Ag/Ab Combo assay result andsupplemental assay results should be interpreted inconjunction with the patient's clinical presentation,history and other laboratory results. If the results areinconsistent with clinical evidence, additional testing issuggested to confirm the result. Blood Venous blood specimen / Unknown 09/24/2024 7:35 AM EDT 09/24/2024 7:35 AM EDT Maria Teresa Levin [facility] LAB BLOOD ORDERABLES Final Res ult Performing Organization Address City/[facility]/ZIP Co de Phone Number [facility] [address] [place] [address] [phone] * (ABNORMAL) Sed Rate by Modified Ricardoergren (09/24/2024 7:35 AM EDT) Pathologist [facility] Erythrocyte Sedimentation Rate 28(H) 0 - 20 MM/HR [facility] Comment:Patients with polycy themia and many hemoglobin abnormalitiesmay have depressed sed rates whereas patients with anemiamay have elevated sed rates. Blood Venous blood specimen / Unknown 09/24/2024 7:35 AM EDT 09/24/2024 7:35 AM EDT Maria Teresa Levin [facility] LAB BLOOD ORDERABLES Final Res ult Performing Organization Address [facility] Co de Phone Number [facility] [address] [place] [phone] * Hemoglobin A1c (09/24/2024 7:35 AM EDT) Hemoglobin A1c 6.0 <6.0 % [facility] Comment:Hemoglobin A1C Refer ence Range Adults: 4.8 - 6.0 % Non diabetic: < 6.0 % Goal: < 7.0 %Additional Action Suggested: > 8.0 %Note: Hemoglobin A1c results are invalid for patients with abnormal amounts of HbF. Blood transfusions may impact the HbA1c concentration in the patient sample. Estimated Average Glucose 126 mg/dL [facility] Comment:eAG = Estimated ave rage glucose which is %A1C expressed asaverage glucose, using the formula of the G7U-NjrcryhBszhlpy Glucose study (ADAG), Diabetes Care, Vol.31,#8,Feb. 2007 Blood Venous blood specimen / Unknown 09/24/2024 7:35 AM EDT 09/24/2024 7:35 AM EDT us Maria Teresa Levin [facility] LAB BLOOD ORDERABLES Final Res ult Performing Organization Address [facility] Co de Phone Number [facility] [address] [place] [phone] * (ABNORMAL) Lipid Panel, Standard (09/24/2024 7:35 AM EDT) Triglycerides 93 <150 mg/dL [facility] Comment:Desirable Triglyceri de: less than 150 mg/dLBorderline High Triglyceride 150-199 mg/dLHigh Triglyceride: 200-499 mg/dLVery High Triglyceride: greater than or equal to 5OO mg/dL Cholesterol 100 <200 mg/dL [facility] Comment:Desirable Cholestero l: less than 200 mg/dLBorderline High Cholesterol: 200-239 mg/dLHigh Cholesterol: greater than 239 mg/dL LDL Cholesterol Calculated 42 <100 mg/dL [facility] Comment:Desirable LDL: less than 100 mg/dLNear Optimal/Above Optimal LDL: 110- 129 mg/dLBorderline High LDL: 130-159 mg/dLHigh LDL: 160-189 mg/dLVery High LDL: greater than or equal to 190 mg/dL HDL Cholesterol 40(L) >40 mg/dL [facility] Comment:Desirable HDL: great er than 40 mg/dL Note: This HDL assay may give artificially low results in patients with liver disease. Blood Venous blood specimen / Unknown 09/24/2024 7:35 AM EDT 09/24/2024 7:35 AM EDT us Maria Teresa Levin [facility] LAB BLOOD ORDERABLES Final Res ult [facility] [address] [place] [address] [phone] * (ABNORMAL) Comprehensive Metabolic Panel (09/24/2024 7:35 AM EDT) Sodium 140 135 - 145 mmol/L [facility] Potassium 3.6 3.3 - 5.1 mmol/L [facility] Chloride 108 96 - 108 mmol/L [facility] Carbon Dioxide 26 22 - 29 mmol/L [facility] Anion Gap 10(L) 12 - 20 [facility] Urea Nitrogen (BUN) 10 9 - 16 mg/dL [facility] Creatinine, Serum 0.77 0.5 - 1.4 mg/dL [facility] Estimated Glomerular Filt Rate >60 [facility] Comment:Chronic Kidney Disea se: Estimated GFR < 60 mL/min/1.94t4Flyfyc Kidney Disease: Estimated GFR < 15 mL/min/1.73m2 Glucose 123(H) 60 - 115 mg/dL [facility] Calcium 9.0 8.4 - 10.2 mg/dL [facility] Bilirubin, Total 0.4 0.0 - 1.0 mg/dL [facility] Aspartate Amino Transferase 34(H) 5 - 31 U/L [facility] Alanine Aminotransferase 32(H) 0 - 31 U/L [facility] Total Protein 7.4 6.5 - 8.0 g/dL [facility] Albumin Level 3.8 3.5 - 5.0 g/dL [facility] Alkaline Phosphatase 83 39 - 117 U/L [facility] Blood Venous blood specimen / Unknown 09/24/2024 7:35 AM EDT 09/24/2024 7:35 AM EDT us Maria Teresa Espinozajustus [facility] LAB BLOOD ORDERABLES Final Res ult Performing Organization Address [facility] Co de Phone Number [facility] [address] [place] [phone] * Albumin, Random Urine W/Creatinine (09/24/2024 7:30 AM EDT) Creatinine, Urine 349.73 mg/dL [facility] Microalbumin Urine 18.0 mg/L [facility] Microalbum Creatinine Ratio Ur 5.1 <30 ug/mg cr [facility] Comment:Albumin/Creatinine R atio Reference Ranges: Normal: < 30 ug/mg creatinine Microalbuminuria: 30 - 300 ug/mg creatinineClinical Albuminuria: > 300 ug/mg creatinine Urine 09/24/2024 7:30 AM EDT 09/24/2024 7:47 AM EDT us Maria Teresa Espinozajustus [facility] LAB URINE ORDERABLES Final Res ult Performing Organization Address [facility] Co de Phone Number [facility] [address] [place] [address] [phone] * BI Mammogram Diagnostic Tomosynthesis Bilateral (08/13/2023 9:00 AM EST) Anatomical Region Laterality Modality Breast Bilateral Mammography 08/13/2023 9:00 AM EST Narrative 08/13/2023 9:18 AM EST ? [facility] ? [address] ?[place] [address] ? Mammography Report ? Signed ? Patient: Bartholomew,Edelmira Y ?MR#: [id number] ?? [id number] ? : 1970 ?Acct:[id number] ? Age/Sex: 53 / F ?ADM Date: 08/13/23 ? Loc: HO.MAMMO ? Attending Dr: Maria Teresa Levin [employer] ? Ordering Physician: Maria Teresa Levin [employer] ?Results: 1Negat ?? fredo ? Date of Service: 08/13/23 ?Follow Up: 1 Year From Orig ?? inal Mammogram ? Procedure(s): MM tomosynthesis diagnostic BI ?? Accession Number(s): [id number] ? cc: Maria Teresa Levin [employer] ? EXAMINATION: ?? MM DIAGNOSTIC DIGITAL BREAST TOMOSYNTHESIS, BILATERAL ?? US BREAST LIMITED, RIGHT ? MAMMOGRAPHY: ?? CLINICAL INFORMATION: ? 53-year-old female complaining of superior breast pain x2-3 months ?? spanning the 11-1:00 axis. No palpable foci. No additional complaint. ?? Patient states fibromyalgia. Patient also due for bilateral screening. ?? No family history of breast CA. ? COMPARISON: ?? Mammography: 09/19/2022, 09/12/2021, 09/06/2020, 04/02/2019, and dating ?? back to 2013. ? TECHNIQUE: ?? Digital breast tomosynthesis is performed in both the craniocaudal and ?? mediolateral oblique views along with computer-aided detection (CAD). ?? Synthesized 2D images are generated from the tomosynthesis. In ?? addition, full-field right 3-D mediolateral view was also obtained. ? FINDINGS: ?? There are scattered areas of fibroglandular density (ACR BI-RADS breast ?? composition Category b). ? There are no suspicious masses, suspicious grouped calcifications, or ?? areas of architectural distortion in either breast. The parenchymal ?? pattern is stable from prior exams. ? No mammographic abnormality in the superior right breast in the region ?? of breast pain, which was marked by the technologist with the aid of ?? the patient. ?? No skin or axillary abnormalities. ? ULTRASOUND: ?? CLINICAL INFORMATION: ?? As above. ? COMPARISON: ?? None ? TECHNIQUE: ?? Targeted sonographic evaluation right breast was performed using a high ?? frequency linear transducer. Attention was given to the 10-2 o'clock ?? axis right breast. Selected archived documentation. ? FINDINGS: ? RIGHT BREAST: There is a mixture of fatty and fibroglandular tissue. ?? No suspicious mass is seen. ??There is no pathologic acoustic shadowing. ?? There is no cystic abnormality. No ultrasound correlate to the region ?? of breast pain in the 10-2 o'clock axis of the right breast. ? MM/MM tomosynthesis diagnostic BI ?? IMPRESSION: ?? There are no findings suspicious for malignancy in either breast. ? Region of right breast pain superiorly shows no mammographic or ?? sonographic correlate. Recommend clinical management. ? Otherwise, recommend resuming routine annual screening mammography. ? OVERALL ASSESSMENT: ?? Mammography: BI-RADS 1 - Negative ?? Ultrasound: BI-RADS 1 - Negative ? RECOMMENDATION: ?? 1 year F/U ? Results were provided to the patient at time of visit by the ?? technologist. ? This patient's information was entered into a reminder system with a ?? target due date for their next mammogram. ? Dictated By: ?Iggy Shipley MD ? Signed By: ?<Electronically signed by Iggy Shipley MD in OV> ?08/13/23 0914 ? DD/ 0900 ? TD/TT: ? Infusion Therapy Nurse: ? Procedure Note Donotsigridinterpreter, Image - [facility] [address] [place] [address] Mammography Report Signed Patient: Edelmira Bartholomew YMR#: [id number] : 1970Acct:[id number] Age/Sex: 53 / FADM Date: 08/13/23 Loc: HO.MAMMO Attending Dr: Maria Teresa Levin [employer] Ordering Physician: Maria Teresa LevinPResults: 1Negat fredo Date of Service: 08/13/23Follow Up: 1 Year From Orig inal Mammogram Procedure(s): MM tomosynthesis diagnostic BI Accession Number(s): [id number] cc: Maria Teresa Levni EXAMINATION: MM DIAGNOSTIC DIGITAL BREAST TOMOSYNTHESIS, BILATERAL US BREAST LIMITED, RIGHT MAMMOGRAPHY: CLINICAL INFORMATION: 53-year-old female complaining of superior breast pain x2-3 months spanning the 11-1:00 axis. No palpable foci. No additional complaint. Patient states fibromyalgia. Patient also due for bilateral screening. No family history of breast CA. COMPARISON: Mammography: 09/19/2022, 09/12/2021, 09/06/2020, 04/02/2019, and dating back to 2013. TECHNIQUE: Digital breast tomosynthesis is performed in both the craniocaudal and mediolateral oblique views along with computer-aided detection (CAD). Synthesized 2D images are generated from the tomosynthesis. In addition, full-field right 3-D mediolateral view was also obtained. FINDINGS: There are scattered areas of fibroglandular density (ACR BI-RADS breast composition Category b). There are no suspicious masses, suspicious grouped calcifications, or areas of architectural distortion in either breast. The parenchymal pattern is stable from prior exams. No mammographic abnormality in the superior right breast in the region of breast pain, which was marked by the technologist with the aid of the patient. No skin or axillary abnormalities. ULTRASOUND: CLINICAL INFORMATION: As above. COMPARISON: None TECHNIQUE: Targeted sonographic evaluation right breast was performed using a high frequency linear transducer. Attention was given to the 10-2 o'clock axis right breast. Selected archived documentation. FINDINGS: RIGHT BREAST: There is a mixture of fatty and fibroglandular tissue. No suspicious mass is seen. There is no pathologic acoustic shadowing. There is no cystic abnormality. No ultrasound correlate to the region of breast pain in the 10-2 o'clock axis of the right breast. MM/MM tomosynthesis diagnostic BI IMPRESSION: There are no findings suspicious for malignancy in either breast. Region of right breast pain superiorly shows no mammographic or sonographic correlate. Recommend clinical management. Otherwise, recommend resuming routine annual screening mammography. OVERALL ASSESSMENT: Mammography: BI-RADS 1 - Negative Ultrasound: BI-RADS 1 - Negative RECOMMENDATION: 1 year F/U Results were provided to the patient at time of visit by the technologist. This patient's information was entered into a reminder system with a target due date for their next mammogram. Dictated By: Iggy Shipley MD Signed By: <Electronically signed by Iggy Shipley MD in OV> 08/13/23 0914 DD/ 0900 TD/TT: Infusion Therapy Nurse: Maria Teresa Levin [facility] IM BI PROCEDURES Edited Resul t - Final from Last 3 Months or Most Recently Relevant to Health Maintenance Insurance [facility] C3 Care Teams Assembler Installer General Relationship Specialty Start Date End Date Maria Teresa Levin FNP [address] [place] [phone] PCP - General Family Medicine 03/06/22
--- OUTSIDE RECORDS SUMMARY | 2024-11-12 07:33 | XMS_ITS | Encounter Summary ---
Author Organization [employer] Address [address] [facility] [facility] [address] [place] [address] Care Team Providers Care Make Up Editor Name Role Phone Maria Teresa Levin Primary Care Provider Reason for Visit * Reason Comments Med Refill Encounter Details Date Type Department Care Team (Late st Contact Info) Description 04/12/2024 Refill [facility] [address] [place] [address] Maria Teresa Levin FNP [address] [place], [place] [phone] Essential hypertension Social History Tobacco Use Types Packs/Day Years [...] Description 11/18/2024 9:00 AM EDT Office Visit [facility] [address] [place] [address] Maria Teresa Levin FNP [address] [place] [address] 01/18/2025 1:30 PM EDT Telemedicine [facility] PEDS [address] [place], [place] [phone] 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, RN [address] [place] [address] documented as of this encounter Visit Diagnoses Diagnosis Essential hypertension Unspecified essential hypertension documented in this encounter Care Teams Make Up Editor Relationship Specialty Start Date End Date Maria Teresa Levin FNP [address] [place] [address] PCP - General Family Medicine 03/06/22 documented as of this encounter
--- OUTSIDE RECORDS SUMMARY | 2024-11-12 07:33 | XMS_ITS | Encounter Summary ---
Author Organization [employer] Address [address] [facility] [address] [place] [address] Care Team Providers Care Padded Box Sewer Name Role Phone Maria Teresa Levin Primary Care Provider [phone] Reason for Visit * Reason Onset Date Comments Chart Prep 11/11/2024 Encounter Details Date Type Department Care Team ([facility] Contact Info) Description 11/11/2024 Telephone [facility] [address] [place], [place] [phone] Maria Teresa Levin FNP [address] [place] [address] Chart Prep Social History Tobacco Use Types Packs/Day Years [...] the past 12 months, has t he [employer], [employer], oil or water [employer] threatened to shut off services in your [...] AM EDT documented as of this encounter Miscellaneous Notes * Telephone Encounter - Pan Augustin [place] - 11/11/2024 3:58 PM EDT Chart Prep Labs: not done Images: done Referrals: complete Vaccines due: not applicable Screenings: not applicable Overdue care gaps: SDOH and PHQ-9 documented in this encounter Plan of Treatment Upcoming Encounters Date Type Department Care Team (Late st Contact Info) Description 11/18/2024 9:00 AM EDT Office Visit [facility] [address] [place] [address] Maria Teresa Levin FNP [address] [place] [address] 01/18/2025 1:30 PM EDT Telemedicine [facility] [address] [place] [address] 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, JEB [address] [place] [address] documented as of this encounter Visit Diagnoses Not on filedocumented in this encounter Care Teams Padded Box Sewer Relationship Specialty Start Date End Date Maria Teresa Levin FNP [address] [place] [address] PCP - General Family Medicine 03/06/22 documented as of this encounter
--- OUTSIDE RECORDS SUMMARY | 2024-11-12 07:33 | XMS_ITS | Encounter Summary ---
Author Organization [employer] Address [address] [facility] [address] [place] [address] Care Team Providers Care Crib Tender Name Role Phone Maria Teresa Levin Primary Care Provider Reason for Visit * Reason Onset Date Comments Appointment Request 10/14/2024 Encounter Details Date Type Department Care Team ([facility] Contact Info) Description 10/14/2024 Telephone [facility] [address] [place] [address] Maria Teresa Levin FNP [address] [place] [address] Appointment Request Social History Tobacco Use Types Packs/Day Years [...] encounter Miscellaneous Notes * Telephone Encounter - Linh [place] - 10/14/2024 12:44 PM EDT Tc from pt requesting r/s 10/14 appt with Mariajose. Pt states had an emergency and will return on October 31. documented in this encounter Plan of Treatment Upcoming Encounters Date Type Department Care Team (Late st Contact Info) Description 11/18/2024 9:00 AM EDT Office Visit [facility] [address] [place] [address] Maria Teresa Levin FNP [address] [place] [address] 01/18/2025 1:30 PM EDT Telemedicine [facility] [address] [place] [address] 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, RN [address] [place] [address] documented as of this encounter Visit Diagnoses Not on filedocumented in this encounter Care Teams Crib Tender Relationship Specialty Start Date End Date Maria Teresa Levin FNP [address] [place] [address] PCP - General Family Medicine 03/06/22 documented as of this encounter
--- OUTSIDE RECORDS SUMMARY | 2024-11-12 07:33 | XMS_ITS | Encounter Summary ---
Author Organization [employer] Address [address] [facility] 7t [place] [address] Care Team Providers Care Mass Communications Instructor Name Role Phone Maria Teresa Levin Primary Care Provider [phone] Reason for Visit * Reason Onset Date Comments Med Refill 03/22/2024 Encounter Details Date Type Department Care Team ([facility] Contact Info) Description 03/22/2024 Refill [facility] PEDS [address] [place], [place] [phone] Maria Teresa Levin FNP [address] [place] [address] Long-term current use of opiate analgesic (Primary Dx); Fibromyalgia Social History Tobacco Use Types Packs/Day [...] encounter Miscellaneous Notes * Telephone Encounter - MERVIN Maria - 03/23/2024 5:10 PM EDT Please see diagnosis code Z79.891 and let me know if you have any thoughts/concerns. Thanks! documented in this encounter Plan of Treatment Upcoming Encounters Date Type Department Care Team (Late st Contact Info) Description 11/18/2024 9:00 AM EDT Office Visit [facility] MED[facility]INE [address] [place] [address] Maria Teresa Levin FNP [address] [place] [address] 01/18/2025 1:30 PM EDT Telemedicine [facility] MED [facility] PEDS [address] [place] [address] 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, RN [address] [place] [address] documented as of this encounter Visit Diagnoses Diagnosis Long-term current use of opiate analgesic- Primary Encounter for long-term (current) use of other medications Fibromyalgia Unspecified myalgia and myositis documented in this encounter Care Teams Mass Communications Instructor Relationship Specialty Start Date End Date Maria Teresa Levin FNP [address] [place] [address] PCP - General Family Medicine 03/06/22 documented as of this encounter
--- OUTSIDE RECORDS SUMMARY | 2024-11-12 07:33 | XMS_ITS | Encounter Summary ---
Author Organization [employer] Address [address] [facility] [address] [place] [address] Care Team Providers Care Paraprofessional Aide Teacher Name Role Phone Maria Teresa Levin Primary Care Provider [phone] Encounter Details Date Type Department Care Team ([facility] st Contact Info) Description 04/30/2023 Orders Only [facility] [address] [place] [address] Maria Teresa Levin FNP [address] [place], [place] [phone] Social History Tobacco Use Types Packs/Day Years Used Date Smoking Tobacco: Every Day Cigarettes Smokeless Tobacco: Never Alcohol Use Standard Drinks/Week Comments Never 0 (1 standard drink = 0.6 oz pur e alcohol) Housing Stability Answer Date Recorded What is your housing situation today? I have yola garcia 04/22/[address] you li ve. Do you have problems with any of the following? None of the above 04/22/2023 Food Insecurity Answer Date Recorded Within the past 12 months, y ou worried that your food would run out before you got money to buy more: Never True 04/22/2023 Within the past 12 months,th e food you bought just didn't last and you didn't have enough money to get more: Never True Transportation Answer Date Recorded In the past 12 months, has l ack of transportation kept you from medical appts, meetings, work or from getting things needed for daily living? Yes, it has kept me from medical appointments or getting medications. 04/16/2023 Utilities Answer Date Recorded In the past 12 months, has t he electric, gas, oil or water company threatened to shut off services in your home? No 04/22/2023 Depression Answer Date Recorded Patient Health Questionnaire-2 Score 0 07/13/2022 Comments Unknown Sex and Gender Information Value [...] Description 11/18/2024 9:00 AM EDT Office Visit [facility] [address] [place] [address] Maria Teresa Levin FNP [address] [place] [address] 01/18/2025 1:30 PM EDT Telemedicine [facility] [address] [place], [place] [phone] 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, RN [address] [place] [address] documented as of this encounter Visit Diagnoses Not on filedocumented in this encounter Care Teams Paraprofessional Aide Teacher Relationship Specialty Start Date End Date Maria Teresa Levin FNP [address] [place] [address] PCP - General Family Medicine 03/06/22 documented as of this encounter
--- OUTSIDE RECORDS SUMMARY | 2024-11-12 07:33 | XMS_ITS | Encounter Summary ---
Author Organization [employer] Address [address] 7[address] [place] [address] Care Team Providers Care Surfacing Technician Name Role Phone Maria Teresa Levin Primary Care Provider [phone] Reason for Visit * Reason Comments Med Refill Encounter Details Date Type Department Care Team (Late st Contact Info) Description 10/02/2024 Refill [facility] [address] [place] [address] Maria Teresa Levin FNP [address] [place], [place] [phone] Gastroesophageal reflux disease, unspecified whether esophagitis present Social History Tobacco Use Types Packs/Day Years [...] the past 12 months, has t he [employer], gas, oil or water [employer] threatened to shut off services in your [...] Description 11/18/2024 9:00 AM EDT Office Visit [facility] [address] [place] [address] Maria Teresa Levin FNP [address] [place] [address] 01/18/2025 1:30 PM EDT Telemedicine [facility] [address] [place] [address] 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, RN [address] [place] [address] documented as of this encounter Visit Diagnoses Diagnosis Gastroesophageal reflux disease, unspecified whether esophagitis present documented in this encounter Care Teams Surfacing Technician Relationship Specialty Start Date End Date Maria Teresa Levin FNP [address] [place] [address] PCP - General Family Medicine 03/06/22 documented as of this encounter
--- OUTSIDE RECORDS SUMMARY | 2024-11-12 07:33 | XMS_ITS ---
Author Organization [employer] [facility] Address [address] [place] [address] 7 [place] [address] Care Team Providers Care Professor Of Vegetable Science Name Role Phone Maria Teresa Levin Primary Care Provider [phone] VP CLINICAL RESEARCH Status:Enrolled (Active) Start date:04/10/2022 Enrollment date:04/10/2022 Current support & services provided:Tier 4 (VP CLINICAL RESEARCH) Case Team Name Relationship Phone Alla Dunn RN Registered Nurse(Responsible Sta ff) Continued Care and Services Coordination
--- OUTSIDE RECORDS SUMMARY | 2024-11-12 07:33 | XMS_ITS | Encounter Summary ---
Author Organization [employer] Address [address] [place] [address] Care Team Providers Care Processor Grain Name Role Phone Maria Teresa Levin Primary Care Provider [phone] Reason for Visit * Reason Onset Date Comments Med Refill 04/26/2023 Encounter Details Date Type Department Care Team ([facility] st Contact Info) Description 04/26/2023 Telephone [facility] [address] [place] [address] Maria Teresa Levin FNP [address] [place] [address] Med Refill Social History Tobacco Use Types Packs/Day Years [...] encounter Miscellaneous Notes * Telephone Encounter - Era Garcia - 04/26/2023 1:40 PM EDT Tc from pt requesting medication refill on oxyCODONE-acetaminophen (Percocet) 5- 325 MG [facility] to [facility] to [id number] - [place], [place] - [address] documented in this encounter Plan of Treatment Upcoming Encounters Date Type Department Care Team (Late st Contact Info) Description 11/18/2024 9:00 AM EDT Office Visit [facility] MED[facility]INE [address] [place] [address] Maria Teresa Levin FNP [address] [place] [address] 01/18/2025 1:30 PM EDT Telemedicine [facility] [address] [place] [address] 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, JEB [address] [place] [address] documented as of this encounter Visit Diagnoses Not on filedocumented in this encounter Care Teams Processor Grain Relationship Specialty Start Date End Date Maria Teresa Levin FNP [address] [place] [address] PCP - General Family Medicine 03/06/22 documented as of this encounter
--- OUTSIDE RECORDS SUMMARY | 2024-11-12 07:33 | XMS_ITS | Encounter Summary ---
Author Organization [employer] Address [address] 7[address] [place] [address] Care Team Providers Care Labor Specialist Name Role Phone Maria Teresa Levin Primary Care Provider [phone] Encounter Details Date Type Department Care Team ([facility] Contact Info) Description 11/11/2023 Orders Only [facility] [address] [place], [place] [phone] Maria Teresa Levin FNP [address] [place], [place] [phone] Social History Tobacco Use Types Packs/Day Years [...] EDT Office Visit [facility] [address] [place] [address] Maria Teresa Levin FNP [address] [place] [address] 01/18/2025 1:30 PM EDT Telemedicine [facility] [address] [place] [address] 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, JEB 505 [place] [address] documented as of this encounter Visit Diagnoses Not on filedocumented in this encounter Care Teams Labor Specialist Relationship Specialty Start Date End Date Maria Teresa Levin FNP [address] [place] [address] PCP - General Family Medicine 03/06/22 documented as of this encounter
--- OUTSIDE RECORDS SUMMARY | 2024-11-12 07:33 | XMS_ITS | Encounter Summary ---
Author Organization [employer] Address [address] [place] [address] Care Team Providers Care Aeronautical Engineering Officer Name Role Phone Maria Teresa Levin Primary Care Provider [phone] Encounter Details Date Type Department Care Team ([facility] Contact Info) Description 05/20/2023 Orders Only [facility]S [address] [place], [place] [phone] Maria Teresa Levin FNP [address] [place] [address] Social History Tobacco Use Types Packs/Day Years [...] Description 11/18/2024 9:00 AM EDT Office Visit [facility] MEDICINE [address] [place] [address] Maria Teresa Levin FNP [address] [place] [address] 01/18/2025 1:30 PM EDT Telemedicine [facility] [address] [place] [address] 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, RN [address] [place] [address] documented as of this encounter Visit Diagnoses Not on filedocumented in this encounter Care Teams Aeronautical Engineering Officer Relationship Specialty Start Date End Date Maria Teresa Levin FNP [address] [place] [address] PCP - General Family Medicine 03/06/22 documented as of this encounter
--- OUTSIDE RECORDS SUMMARY | 2024-11-12 07:33 | XMS_ITS | Encounter Summary ---
Author Organization [employer] Address [address] [place] [address] Care Team Providers Care Area Intelligence Technician Name Role Phone Maria Teresa Levin Primary Care Provider [phone] Reason for Visit * Reason Onset Date Comments Med Refill 04/22/2023 Encounter Details Date Type Department Care Team ([facility] st Contact Info) Description 04/22/2023 Refill [facility] [address] [place] [address] Maria Teresa Levin FNP [address] [place] [address] Fibromyalgia Social History Tobacco Use Types Packs/Day [...] Description 11/18/2024 9:00 AM EDT Office Visit [facility] [address] [place] [address] Maria Teresa Levin FNP [address] [place] [address] 01/18/2025 1:30 PM EDT Telemedicine [facility] [address] [place] [address] 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, RN [address] [place] [address] documented as of this encounter Visit Diagnoses Diagnosis Fibromyalgia Unspecified myalgia and myositis documented in this encounter Care Teams Area Intelligence Technician Relationship Specialty Start Date End Date Maria Teresa Levin FNP [address] [place] [address] PCP - General Family Medicine 03/06/22 documented as of this encounter
--- OUTSIDE RECORDS SUMMARY | 2024-11-12 07:33 | XMS_ITS | Encounter Summary ---
Author Organization [employer] Address [address] [place] [address] 7 [place] [address] Care Team Providers Care Athletic Shoe Designer Name Role Phone Maria Teresa Levin Primary Care Provider [phone] Reason for Visit * Reason Onset Date Comments Med Refill 03/27/2023 Encounter Details Date Type Department Care Team (Late Contact Info) Description 03/27/2023 Refill [facility] MEDICINE [address] [place], [place] [phone] Maria Teresa Levin FNP [address] [place] [address] Fibromyalgia Social History Tobacco Use Types Packs/Day Years Used Date Smoking Tobacco: Every Day Cigarettes Smokeless Tobacco: Never Alcohol Use Standard Drinks/Week Comments Never 0 (1 standard drink = 0.6 oz pur e alcohol) Depression Answer Date Recorded Patient Health Questionnaire-2 [...] Encounters Date Type Department Care Team (Late Contact Info) Description 11/18/2024 9:00 AM EDT Office Visit [facility] MEDICINE [address] [place], [place] [phone] Maria Teresa Levin FNP [address] [place], [place] [phone] 01/18/2025 1:30 PM EDT Telemedicine [facility] MED [facility]S [address] [place] [address] 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, RN [address] [place] [address] documented as of this encounter Visit Diagnoses Diagnosis Fibromyalgia Unspecified myalgia and myositis documented in this encounter Care Teams Athletic Shoe Designer Relationship Specialty Start Date End Date Maria Teresa Levin FNP [address] [place] [address] PCP - General Family Medicine 03/06/22 documented as of this encounter
--- OUTSIDE RECORDS SUMMARY | 2024-11-12 07:33 | XMS_ITS | Encounter Summary ---
Author Organization [employer] Address [address] [place] [address] Care Team Providers Care Master Ship Name Role Phone Maria Teresa Levin Primary Care Provider [phone] Reason for Visit * Reason Onset Date Comments Appointment Request 03/10/2024 Encounter Details Date Type Department Care Team ([facility] Contact Info) Description 03/10/2024 Telephone [facility] [address] [place] [address] Maria Teresa Levin FNP [address] [place] [address] Appointment Request Social History Tobacco Use Types [...] encounter Miscellaneous Notes * Telephone Encounter - Trenton Turcios - 03/10/2024 9:59 AM EDT Tc from patient requesting a call back to schedule appt documented in this encounter Plan of Treatment Upcoming Encounters Date Type Department Care Team (Late st Contact Info) Description 11/18/2024 9:00 AM EDT Office Visit [facility] [address] [place] [address] Maria Teresa Levin FNP [address] [place] [address] 01/18/2025 1:30 PM EDT Telemedicine [facility] [address] [place] [address] 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, RN [address] [place] [address] documented as of this encounter Visit Diagnoses Not on filedocumented in this encounter Care Teams Master Ship Relationship Specialty Start Date End Date Maria Teresa Levin FNP [address] [place] [address] PCP - General Family Medicine 03/06/22 documented as of this encounter
[2024-11-12 08:06] LABS: Estimated Average Glucose 123 mg/dL; Hemoglobin A1C 143.2904 umol/L; Hemoglobin A1c % 5.9 % (<6.0); Total Hemoglobin (HGBA1C) 3500.4787 umol/L
[2024-11-12 08:18] LABS: Alanine Aminotransferase 41 U/L (0-31); Albumin Level 4.1 g/dL (3.5-5.0); Alkaline Phosphatase 87 U/L (39-117); Anion Gap 10 (12-20); Aspartate Amino Transferase 48 U/L (5-31); Bilirubin Direct 0.2 mg/dL (0.0-0.5); Bilirubin Total 0.4 mg/dL (0.0-1.0); Blood Urea Nitrogen 11 mg/dL (9-16); Calcium 9.5 mg/dL (8.4-10.2); Carbon Dioxide 28 mmol/L (22-29); Chloride 105 mmol/L (96-108); Cholesterol 110 mg/dL (<200); Estimated Glomerular Filt Rate > 60; Glucose Random 112 mg/dL (60-115); HDL Cholesterol 36 mg/dL (>40); LDL Cholesterol Calculated 53 mg/dL (<100); Potassium 3.8 mmol/L (3.3-5.1); Sodium 139 mmol/L (135-145); Total Protein 7.5 g/dL (6.5-8.0); Triglycerides 109 mg/dL (<150)
== END 2024-11-12 07:31 | disposition home or self-care (01) ==
LOC: HO.LAB 07:30
PROVIDERS: PCP Registered Nurse; Visit Provider Registered Nurse
DX: K76.0 Fatty (change of) liver, not elsewhere classified (principal); R73.03 Prediabetes; I10 Essential (primary) hypertension
CPT/HCPCS: 36415; 80048; 80061; 80076; 83036

== ENCOUNTER 2025-01-11 08:27 | Outpatient (REF) | payer MEDICAID, SELFPAY ==
--- NOTE | ~2025-01-11 | US_ITS ---
EXAMINATION: US ABDOMEN COMPLETE WITH LIVER ELASTOGRAPHY HISTORY: Transaminitis x > 6 Months. Abd US w/ elastography for further evaluation. TECHNIQUE: Real-time grayscale ultrasound imaging of the abdomen was performed and images were reviewed. COMPARISON: Comparison is made with the prior examination dated 08/18/2018. FINDINGS: Liver: The right lobe of the liver measures 14.7 cm in size. The left lobe of the liver measures 12.7 cm in size. The liver demonstrates increased echotexture, consistent with steatosis. No focal mass or intrahepatic biliary ductal dilatation is identified. There is normal hepatopedal flow in the portal vein. Ultrasound elastography of the liver was performed with 10 separate measurements of the liver parenchyma with the patient in the supine position. Measurements were obtained approximately 2 cm below Riley's capsule and perpendicular to the capsule. The median shear wave velocity is 1.67 m/s. The interquartile range/median (IQR/median) is 0.13. Gallbladder and biliary tree: Multiple shadowing calculi are noted in the gallbladder. There is no wall thickening or pericholecystic fluid. There is no sonographic Valente sign. The common bile duct is normal in caliber measuring 4 mm. Kidneys: The right kidney measures 11.6 cm in length. The left kidney measures 10.3 cm in length. The kidneys are unremarkable, without evidence of masses, hydronephrosis, or calculi. Pancreas: Again seen is a hypoechoic focus in the pancreatic body measuring 10 x 5 x 7 mm, similar to the prior study. This was previously evaluated on MRI 09/18/2018] demonstrated benign features. The pancreatic duct is normal in caliber. Spleen: The spleen is normal in size and contour, measuring 8.6 cm in length. Abdominal aorta and inferior vena cava: The visualized portions of the abdominal aorta and inferior vena cava are normal in caliber. There is no free fluid in the abdomen. US/US abdomen comp w elastography IMPRESSION: Hepatic steatosis. Stable 10 mm hypoechoic focus in the pancreatic body. The median shear wave velocity in the liver is 1.67 m/s, corresponding to a median liver stiffness of 8.52 kPa. The IQR/median value is 0.13. This is indicative of a quality data set. Findings are indicative of a low elastography value which rules out advanced chronic liver disease in asymptomatic patients. REFERENCE: Society of [employer] in Ultrasound Liver Stiffness Thresholds (2020): LIVER STIFFNESS THRESHOLDS: *Shear wave velocity less than 1.3 m/s (Liver Stiffness equal or less than 5 kPa): High probability of being normal. *Shear wave velocity less than 1.7 m/s (Liver Stiffness less than 9 kPa): In the absence of other known clinical signs, rules out compensated advanced chronic liver disease. *Shear wave velocity between 1.7-2.1 m/s (Liver Stiffness 9-13 kPa): Suggestive of compensated advanced chronic liver disease but need further test for confirmation. *Shear wave velocity between 2.1-2.4 m/s (Liver Stiffness 13-17 kPa): Rules in compensated advanced chronic liver disease. *Shear wave velocity greater than 2.4 m/s (Liver Stiffness over 17 kPa): Suggestive of clinically significant portal hypertension. QUALITY OF DATA SET: *IQR/Median value equal or less than 0.15 implies a quality data set. *IQR/Median value over 0.15 implies a poor quality data set. SIGNIFICANT CHANGE FROM PRIOR EXAM: Significant change if liver stiffness measurement is 10% or greater from prior exam. OTHER CONSIDERATIONS: The stage of liver fibrosis may be overestimated in the setting of acute hepatitis, liver inflammation, elevated liver function tests, hepatic vascular congestion, obstructive cholestasis, non-fasting state, and infiltrative diseases such as amyloidosis and lymphoma. In some patients with NAFLD, the liver stiffness thresholds for compensated advanced chronic liver disease may be lower. In causes other than viral hepatitis and NAFLD, liver stiffness thresholds are not well established. Electronically signed by: Chas Peguero MD 01/11/2025 10:10 AM EDT
--- OUTSIDE RECORDS SUMMARY | 2025-01-11 08:38 | XMS_ITS | Clinical Summary ---
Author Organization [employer] Address [address] [facility] [address] [place] [address] Care Team Providers Care Collar Starcher Name Role Phone Maria Teresa Levin MERVIN Primary Care Provider [phone] Allergies Active Allergy Reactions Criticality Noted Date [...] :Wheezing Use nebulizer as instructed 1 each 025 Active Respiratory Therapy Supplies (Nebulizer/Tubi ng/Mouthpiece) kitIndications: [...] FOR WHEEZING 18 g 3 025 Active cyclobenzaprine (Flexeril) 10 MG tablet TAKE 1 TABLET BY MOUTH AT BEDTIME FOR MUSCLE SPASM 30 tablet 3 025 Active Magnesium 400 MG capsuleIndicati ons:Routine health maintenance Take 1 tablet nightly before bed 90 capsule 1 025 Active oxyCODONE-aceta minophen (Percocet) 5-325 MG tabletIndicatio ns:Fibromyalgia Take 1 tablet by mouth every 6 (six) hours if needed for severe pain for up to 28 days. 112 tablet 025 2024 Active omeprazole (PriLOSEC) [address] capsuleIndicati ons:Gastroesoph ageal reflux disease, unspecified whether esophagitis present TAKE 1 CAPSULE BY MOUTH EVERY DAY BEFORE A MEAL 90 capsule 3 025 Active omeprazole (PriLOSEC) [address] capsuleIndicati ons:Gastroesoph ageal reflux disease, unspecified whether esophagitis present TAKE 1 CAPSULE BY MOUTH EVERY DAY BEFORE A MEAL 90 capsule 3 025 2024 Discontinued(R eorder (will not trigger notification to Pharmacy)) oxyCODONE-aceta minophen (Percocet) 5-325 MG tabletIndicatio ns:Fibromyalgia Take 1 tablet by mouth every 6 (six) hours if needed for severe pain for up to 28 days. Do not start before November 25, 2024. 112 tablet 025 2024 Discontinued(R eorder (will not trigger notification to Pharmacy)) Active Problems Problem Noted Date Diagnosed Date Long-term current use of opiate analgesic 2023 Overview (03/23/2024): Medication: Percocet 5-325mg Q6H PRN (30 MME) Indication: fibromyalgia Last [facility] [employer] OWNER Agreement: 09/05/23 Tier II: Q3 month [facility]F [employer] OWNER visits (tele OK every other) Assessment & Plan (08/20/2024 12:34 PM EST): Timeline: - 11/04/23: [facility] Tele, pill count WNL - 01/01/24: [facility] OWNER Tele, pill count WNL Assessment & Plan (04/17/2024 1:17 PM EDT): Timeline: - 11/04/23: [facility]NER Tele, pill count WNL - 01/01/24: [facility] OWNER Tele, pill count WNL - Next [facility]F [employer] OWNER scheduled: 04/23/24 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 Declined on 02/11/24, follow up if/when interested in future Pure hypercholesterolemia 03/28/2023 Overview (11/18/2024): Feb 2023: LDL 123, HDL 48, TC 198, TG 135 Continues rosuvastatin 10mg nightly Lab Results Component Value Date CHOL 110 11/12/2024 CHOL 100 09/24/2024 CHOL 101 06/26/2023 TRIG 109 11/12/2024 TRIG 93 09/24/2024 TRIG 126 06/26/2023 HDL 36 (L) 11/12/2024 HDL 40 (L) 09/24/2024 HDL 38 (L) 06/26/2023 LDLCHOLCAL 53 11/12/2024 LDLCHOLCAL 42 09/24/2024 LDLCHOLCAL 38 06/26/2023 -continue lifestyle modification Assessment & Plan (06/27/2023 3:40 PM EST): Repeat lipid panel, liver panel, and VitB12 Assessment & Plan (03/28/2023 12:25 PM EDT): Risk factors: Fam hx CVD, tobacco use ASCVD risk: 6.3% ([place] '08 calc) Shared decision making to continue with lifestyle interventions and initiation mod-intensity statin Start rosuvastatin 10mg nightly. Reviewed med safety and SE Routine health maintenance 07/13/2022 Overview (08/20/2024): Pap: s/p total hysterectomy with prior malignant uterine cervix neoplasm, followed by [facility]. Following with specialist. Mammo: BIRADS 1 on [...] malignant uterine cervix neoplasm, followed by [facility]. She will call to schedule f/u. Mammo: BIRADS 1 on 09/19/22 C-scope: Seen for pre-colonoscopy screening 04/2020. Reports completed Cologuard within past few year, normal. Interested in colonoscopy, referred 02/26/23. Eye: reports UTD Dental: discuss at follow up Last PE: 02/26/23 Assessment & Plan (02/26/2023 10:10 AM EDT): PAP: s/p total hysterectomy with prior malignant uterine cervix neoplasm, followed by [facility] LAN ENGINEER. She will call to schedule f/u. Mammo: 09/12/2021: BIRADS-1. Reports had one earlier this year, will request from [facility]. C-scope: Seen for pre-colonoscopy screening 04/2020. Reports completed Cologuard within past few year, normal. Interested in colonoscopy, referred 02/26/23. Eye: reports UTD Dental: discuss at follow up Assessment & Plan (07/14/2022 11:53 AM EST): PAP: s/p total hysterectomy with prior malignant uterine cervix neoplasm, followed by [facility] LAN ENGINEER. She will call to schedule f/u. Mammo: 09/12/2021: BIRADS-1 C-scope: Seen for pre-colonoscopy screening 04/2020. Discuss at follow up Eye: referral to [facility] Eye [facility] Dental: discuss at follow up Fatty liver disease, nonalcoholic 09/30/2018 Assessment & Plan (11/18/2024 4:38 PM EDT): 12/25/21: ALT 39 U/L and AST 34 U/L 02/28/23: ALT 22 U/L and AST 24 U/L -Hep C neg Feb 2023 -Hep B: eligible as of October 2023 Lab Results Component Value Date AST 48 (H) 11/12/2024 ALT 41 (H) 11/12/2024 TOTPROTEIN 7.5 11/12/2024 ALB 4.1 11/12/2024 ALP 87 11/12/2024 TOTALBILIRUB 0.4 11/12/2024 -Slight increase in AST/ALT despite increased lifestyle interventions. Will plan to check abd us with elastography Assessment & Plan (08/20/2024 12:35 PM EST): [...] b/p reading over 140/90). Prediabetes 08/12/2018 Overview (11/18/2024): Lab Results Component Value Date HGBA1C 5.9 11/12/2024 HGBA1C 6.0 09/24/2024 HGBA1C 5.9 06/26/2023 Cont lifestyle interventions Assessment & Plan (02/26/2023 10:07 AM EDT): A1c 5.5% on 02/26/23, no longer in prediabetes range Menopausal flushing 07/27/2016 Nicotine dependence 07/27/2016 Assessment & Plan (11/18/2024 4:45 PM EDT): Smoking 3-4 cigg/day Max pack per day: 0.5 pack Age started smokin14 y/o Pack year history: <20 Plan: pt to decrease on her own. Follow up if interested in NRT and/or further resources Assessment & Plan (08/20/2024 12:39 PM EST): [...] with cyclobenzaprine PRN, heat, and massage -Encouraged [facility] Acupuncture clinic, and to continue with pharm and non-pharm modalities of pain control -Previously following with [facility] Rheum -Labs: AYAD, RF, neg October 2023. Mild elevation of CRP and sed rate Assessment & Plan (02/12/2024 5:42 PM EDT): -Continues with oxycodone-APAP 5mg Q6H PRN -Continues with cyclobenzaprine PRN, heat, and massage -Encourage [facility] Acupuncture clinic -Previously following with [facility] Rheum -Labs: AYAD, RF, neg October 2023. Mild elevation of CRP and sed rate Assessment & Plan (10/17/2023 9:07 AM EDT): -Continues with oxycodone-APAP 5mg Q8H -Continues with cyclobenzaprine PRN, heat, and massage -Encourage [facility] Acupuncture clinic -Previously following with [facility] Rheum -Plan: trial Celebrex PRN instead of ibuprofen. Reviewed med safety and SE. Repeat lab work including AYAD given polyarthralgias and reported swelling of upper extremities Assessment & Plan (06/27/2023 3:41 PM EST): -Currently controlled with oxycodone-APAP 5mg Q8H -Continues with cyclobenzaprine PRN, heat, and massage -Encourage [facility] Acupuncture clinic and group medical visits -Previously following with [facility] Rheum Assessment & Plan (03/28/2023 12:16 PM EDT): -Currently controlled with oxycodone-APAP 5mg Q8H -Continues with cyclobenzaprine PRN, heat, and massage -Encourage [facility] Acupuncture clinic -Upcoming appt with [facility] Rheum Assessment & Plan (02/26/2023 10:02 AM EDT): -Currently controlled with oxycodone-APAP 5mg. Increase from Q8H to Q6H PRN x 1 month as pt experiencing especially stressful time that is triggering fibro flares. Re-eval in 1 month -Continues with cyclobenzaprine PRN, heat, and massage -Encouraged [facility] Acupuncture clinic -Followed by [facility] Rheum Assessment & Plan (07/14/2022 11:58 AM EST): -Currently controlled with oxycodone 5mg Q8H PRN. Will switch back to oxycodone-acetaminophen to eliminate daily use of ibuprofen 800mg TID (following with [facility] OWNER RN) -Continues with cyclobenzaprine PRN, heat, and massage -Encouraged [facility] Acupuncture clinic -Followed by [facility] Rheum Follow up in 3 months for chronic conditions, sooner as needed. Vitamin D deficiency 05/07/2016 Resolved Problems Problem Noted Date Diagnosed Date Resolved Date Elevated LFTs 08/12/2018 07/14/2022 Encounters Date Type Department Care Team Description 01/05/2025 Refill [facility] [address] [place] [address] Maria Teresa Levin FNP Gastroesophageal reflux disease, unspecified whether esophagitis present 12/22/2024 Refill [facility] PED[facility] [address] [place] [address] Maria Teresa Levin FNP Fibromyalgia 12/10/2024 Refill [facility] [address] [place] [address] Maria Teresa Levin FNP Wheezing 11/24/2024 Refill [facility] [address] [place] [address] John Green MD Fibromyalgia 11/18/2024 9:00 AM EDT Office Visit [facility] [address] [place] [address] Maria Teresa Levin FNP Prediabetes (Primary Dx); Routine health maintenance; Pure hypercholesterolemia; Dietary counseling; Exercise counseling; Fatty liver disease, nonalcoholic; Sinus pressure; Cigarette nicotine dependence without complication 11/18/2024 Travel 11/12/2024 Orders Only [facility] [address] [place] [address] Maria Teresa Levin FNP 11/11/2024 Telephone [facility] [address] [place] [address] Maria Teresa Lvein FNP Chart Prep 11/11/2024 Travel 11/05/2024 Telephone [facility] [address] [place] [address] 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 RN 11/04/2024 9:00 AM EDT Clinical Support [facility] [address] [place] [address] 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, network/telecom engineer pain of left knee (Primary Dx); correction (current) use of opiate analgesic 11/04/2024 Telephone [facility] [address] [place] [address] 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, JEB 11/04/2024 Travel 11/03/2024 Travel 10/27/2024 Refill [facility] [address] [place] [address] Maria Teresa Levin FNP Fibromyalgia 10/17/2024 Refill [facility] [address] [place] [address] Maria Teresa Levin FNP 10/14/2024 Travel 10/14/2024 Telephone [facility] [address] [place] [address] 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, RN post closer 10/14/2024 Telephone [facility] [address] [place] [address] Maria Teresa Levin FNP Appointment Request from Last 3 Months Family History Medical [...] alcohol) Depression Answer Date Recorded Patient Health Questionnaire-9 Score 2 11/18/2024 Patient Health Questionnaire-9 Score 2 11/18/2024 Last PHQ-9: Questionnaire Data Not on file 0 11/18/2024 Housing Stability Answer Date Recorded What is your housing situation today? I have yola garcia 11/18/[address] you li ve. Do you have problems with any of the following? None of the above 11/18/2024 Food Insecurity Answer Date Recorded Within the past 12 months, y ou worried that your food would run out before you got money to buy more: Never True 11/18/2024 Within the past 12 months,th e food you bought just didn't last and you didn't have enough money to get more: Never True Transportation Answer Date Recorded In the past 12 months, has l ack of transportation kept you from medical appts, meetings, work or from getting things needed for daily living? No 11/18/2024 Utilities Answer Date Recorded In the past 12 months, has t he [employer], gas, oil or water [employer] threatened to shut off services in your home? No 11/18/2024 Depression Answer Date Recorded Patient Health Questionnaire-2 Score 0 11/18/2024 Internet Access Answer Date Recorded Internet Access Q1 Yes 11/18/2024 Internet Access Q2 Not on file 11/18/2024 Comments No Sex and Gender Information Value Date Recorded Sex Assigned at Female 05/07/2022 10:30 AM EDT Legal Sex Female 10:30 AM EDT Gender Identity Female 05/07/2022 10:30 AM EDT Sexual Orientation Choose not to disclose 2021 10:30 AM EDT Last Filed Vital Signs Vital Sign Reading Time Taken Comments Blood Pressure 118/74 11/18/2024 9:06 AM EDT Pulse 58 11/18/2024 9:06 AM EDT Temperature 36.7 C (98 F) 11/18/2024 9:06 AM EDT Respiratory Rate 18 11/18/2024 9:06 AM EDT Oxygen Saturation 98% 09/15/2024 9:06 AM EDT Inhaled Oxygen Concentration - - Weight 92.1 kg (203 lb) 11/18/2024 9:06 AM EDT Height 157.2 cm (5' 1.88 ) 11/18/2024 9:06 AM ED T Body Mass Index 37.27 11/18/2024 9:06 AM EDT Plan of Treatment Upcoming Encounters Date Type Department Care Team ([facility] st Contact Info) Description 01/18/2025 1:30 PM EDT Telemedicine [facility] [address] [place] [address] 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, RN [address] [place] [address] 02/24/2025 9:00 AM EDT Office Visit [facility] [address] [place], [place] [phone] Maria Teresa Levin FNP [address] [place] [address] Health Maintenance Due Date Last Done Comments CT Colonography 1970 Colonoscopy 1970 FIT 1969 FOBT 1970 Sigmoidoscopy 1970 Mammogram 08/13/2024 08/13/2023, 0212/2023, 09/12/2021, Additional history exists Colorectal Cancer Screening 01/09/2025 FIT DNA/Cologuard 01/09/2025 01/09/2022 Influenza Vaccine (#1) 2025 Alcohol/Substance Use Screening 08/19/2025 08/19/2024 COVID-19 Vaccine (1 - season) 2025 Postponed from 03/08/2024 (Patient [...] from 2019 (Patient Refused) Diabetes: Hemoglobin A1C 11/12/2025 025, 09/24/2024, 06/26/2023, Additional history exists Depression Screening 11/18/2025 11/18/2024, 11/19/19 Disability Screening 11/18/2025 11/18/2024 SDOH Screening 11/18/2025 11/18/2024 Tobacco Screening 11/18/2025 11/18/2024 Lipid Panel 11/12/2029 11/12/2024, 09/06, 06/26/2023, Additional history exists RSV Patients and Patients Aged 60 years [...] patient's age to complete this topic Meningococcal B Vaccine Aged Out No l onger eligible based on patient's age to complete [...] Procedure Name Priority Date/Time Associated Diagnosis Comments BASIC METABOLIC PANEL Routine 11/12/2024 7:40 AM EDT LIPID PANEL, STANDARD Routine 11/12/2024 7:40 AM EDT Prediabetes HEMOGLOBIN A1C Routine 11/12/2024 7:40 AM EDT Prediabetes HEPATIC FUNCTION PANEL Routine 11/12/2024 7:40 AM EDT Fatty liver disease, nonalcoholic POCT KEZIA-14 URINE DRUG SCREEN Routine 11/04/2024 9:10 AM EDT 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 HEPATITIS C VIRAL RNA, QUANTITATIVE, REAL-TIME PCR Routine 09/24/2024 7:35 AM EDT Healthcare maintenance HIV 1/2 ANTIGEN/ANTIBODY, FOURTH GENERATION W/RFL Routine 09/24/2024 7:35 AM EDT Healthcare maintenance BI MAMMOGRAM DIAGNOSTIC TOMOSYNTHESIS BILATERAL Routine 08/13/2023 9:00 AM EST Breast pain in female from Last 3 Months or Most Recently Relevant to Health Maintenance Results * Hemoglobin A1c (11/12/2024 7:40 AM EDT) Hemoglobin A1c 5.9 <6.0 % [facility] Comment:Hemoglobin A1C Refer ence Range Adults: 4.8 - 6.0 % Non diabetic: < 6.0 % Goal: < 7.0 %Additional Action Suggested: > 8.0 %Note: Hemoglobin A1c results are invalid for patients with abnormal amounts of HbF. Blood transfusions may impact the HbA1c concentration in the patient sample. Estimated Average Glucose 123 mg/dL [facility] Comment:eAG = Estimated ave rage glucose which is %A1C expressed asaverage glucose, using the formula of the J8H-BbzgsvaZjmrnjk Glucose study (ADAG), Diabetes Care, Vol.31,#8,Feb. 2007 Blood Venous blood specimen / Unknown 11/12/2024 7:40 AM EDT 11/12/2024 7:40 AM EDT Maria Teresa Levin [facility] BLOOD ORDERABLES Final Res ult Performing Organization Address [facility]/ZIP Co de Phone Number [facility] [address] [place] [phone] * (ABNORMAL) Hepatic Function Panel (11/12/2024 7:40 AM EDT) Bilirubin, Total 0.4 0.0 - 1.0 mg/dL [facility] Bilirubin, Direct 0.2 0.0 - 0.5 mg/dL [facility] Aspartate Amino Transferase 48(H) 5 - 31 U/L [facility] Alanine Aminotransferase 41(H) 0 - 31 U/L [facility] Total Protein 7.5 6.5 - 8.0 g/dL [facility] Albumin Level 4.1 3.5 - 5.0 g/dL [facility] Alkaline Phosphatase 87 39 - 117 U/L [facility] Blood Venous blood specimen / Unknown 11/12/2024 7:40 AM EDT 11/12/2024 7:40 AM EDT Maria Teresa Levin [facility] BLOOD ORDERABLES Final Res ult Performing Organization Address [facility] Co de Phone Number [facility] [address] [place] [phone] * (ABNORMAL) Lipid Panel, Standard (11/12/2024 7:40 AM EDT) Triglycerides 109 <150 mg/dL [facility] Comment:Desirable Triglyceri de: less than 150 mg/dLBorderline High Triglyceride 150-199 mg/dLHigh Triglyceride: 200-499 mg/dLVery High Triglyceride: greater than or equal to 5OO mg/dL Cholesterol 110 <200 mg/dL [facility] Comment:Desirable Cholestero l: less than 200 mg/dLBorderline High Cholesterol: 200-239 mg/dLHigh Cholesterol: greater than 239 mg/dL LDL Cholesterol Calculated 53 <100 mg/dL [facility] Comment:Desirable LDL: less than 100 mg/dLNear Optimal/Above Optimal LDL: 110- 129 mg/dLBorderline High LDL: 130-159 mg/dLHigh LDL: 160-189 mg/dLVery High LDL: greater than or equal to 190 mg/dL HDL Cholesterol 36(L) >40 mg/dL [facility] Comment:Desirable HDL: great er than 40 mg/dL Note: This HDL assay may give artificially low results in patients with liver disease. Blood Venous blood specimen / Unknown 11/12/2024 7:40 AM EDT 11/12/2024 7:40 AM EDT us Maria Teresa JEFFRIES LAB BLOOD ORDERABLES Final Res ult [facility] [address] [place] [phone] * (ABNORMAL) Basic Metabolic Panel (11/12/2024 7:40 AM EDT) Sodium 139 135 - 145 mmol/L [facility] Potassium 3.8 3.3 - 5.1 mmol/L [facility] Chloride 105 96 - 108 mmol/L [facility] Carbon Dioxide 28 22 - 29 mmol/L [facility] Anion Gap 10(L) 12 - 20 [facility] Urea Nitrogen (BUN) 11 9 - 16 mg/dL [facility] Creatinine, Serum 0.78 0.5 - 1.4 mg/dL [facility] Estimated Glomerular Filt Rate >60 [facility] Comment:Chronic Kidney Disea se: Estimated GFR < 60 mL/min/1.85j7Qafdne Kidney Disease: Estimated GFR < 15 mL/min/1.73m2 Glucose 112 60 - 115 mg/dL [facility] Calcium 9.5 8.4 - 10.2 mg/dL [facility] 11/12/2024 7:40 AM EDT 11/12/2024 7:40 AM EDT us Maria Teresa JEFFRIES LAB BLOOD ORDERABLES Final Res ult Performing Organization Address City/[facility]/ZIP Co de Phone Number [facility] [address] [place] [phone] * POCT KEZIA-14 Urine Drug Screen (11/04/2024 9:10 AM EDT) [facility] TCA, Urine Positive Oxycodone Screen, Urine Positive Urine Urine specimen obtained by clean catch procedure / Unknown 11/04/2024 9:10 AM EDT Narrative 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 RN - 11/04/2024 9:10 AM EDT Lot# [id number] Exp: 02-24-26 Maira Teresa Levin [facility] POINT OF CARE TEST ENTER/EDIT ORDERABLES Final Result * Hepatitis C Viral RNA, Quantitative, Real-Time PCR (09/24/2024 7:35 AM EDT) [facility] Hepatitis C Viral Load <15 NOT DETECTED NOT DETECTED IU/mL [facility] HCV Log PCR <1.18 NOT DETECTED NOT DETECTED Log IU/mL [facility] Comment:For additional infor matcherelle, please refer [email or web address](This link is being provided for informational/educational purposes only.)THIS TEST WAS PERFORMED AT:[facility] [place] [phone] BORRERO MD Blood 09/24/2024 7:35 AM EDT 09/24/2024 7:35 AM EDT Maria Teresa Levin [facility] LAB BLOOD ORDERABLES Final Res ult Performing Organization Address [facility]/ZIP Co de Phone Number [facility] [address] [place] [phone] * HIV-1/2 Antigen and Antibodies, Fourth Generation, with Reflexes (09/24/2024 7:35 AM EDT) HIV AB/AG Nonreactive Nonreactive [facility] Comment:HIV-1 p24 Ag and/or HIV-1/HIV-2 Ab not detected.A test result that is nonreactive does not exclude thepossibility of exposure to or infection with HIV-1 and/orHIV-2. Nonreactive results in this assay for individualswith prior exposure to HIV-1 and/or HIV-2 may be due toantigen and antibody levels that are below the limit ofdetection of this assay.The [employer] HIV Ag/Ab Combo assay result andsupplemental assay results should be interpreted inconjunction with the patient's clinical presentation,history and other laboratory results. If the results areinconsistent with clinical evidence, additional testing issuggested to confirm the result. Blood Venous blood specimen / Unknown 09/24/2024 7:35 AM EDT 09/24/2024 7:35 AM EDT us Maria Teresa JEFFRIES LAB BLOOD ORDERABLES Final Res ult [facility] [address] [place] [phone] * BI Mammogram Diagnostic Tomosynthesis Bilateral (08/13/2023 9:00 AM EST) Anatomical Region Laterality Modality Breast Bilateral Mammography 08/13/2023 9:00 AM EST Narrative 08/13/2023 9:18 AM EST [facility] [address] [place] [address] Mammography Report Signed Patient: Edelmira Bartholomew MR#: [id number] : 1970 Acct:[id number] Age/Sex: 53 / F ADM Date: 08/13/23 Loc: HO.MAMMO Attending Dr: Maria Teresa JEFFRIES Ordering Physician: Maria Teresa Levin Results: 1Negat thelma Date of Service: 08/13/23 Follow Up: 1 Year From Orig inal Mammogram Procedure(s): MM tomosynthesis diagnostic BI Accession Number(s): [id number] cc: Maria Teresa LevinP EXAMINATION: MM DIAGNOSTIC DIGITAL BREAST TOMOSYNTHESIS, BILATERAL [...] signed by Iggy Shipley MD in OV> 08/13/23913 DD/ 09 TD/TT: Manager Administration: Procedure Note Donotuseinterpreter, Image - 08/13/2023 [facility] [address] [place], [place] [address] Mammography Report Signed Patient: Edelmira Bartholomew YMR#: [id number] : 1970Acct:[id number] Age/Sex: 53 / FADM Date: 08/13/23 Loc: HO.MAMMO Attending Dr: Maria Teresa Levin MARINE PIPEFITTER Ordering Physician: Maria Teresa LevinPResults: 1Negat thelma Date of Service: 08/13/23Follow Up: 1 Year From Orig ina Mammogram Procedure(s): MM tomosynthesis diagnostic BI Accession Number(s): [id number] cc: Maria Teresa Levin MARINE PIPEFITTER EXAMINATION: MM DIAGNOSTIC DIGITAL BREAST TOMOSYNTHESIS, BILATERAL [...] signed by Iggy Shipley MD in OV> 08/13/2314 DD/ 0900 TD/TT: Manager Administration: Maria Teresa Levin [facility] IM BI PROCEDURES Edited Resul t - Final from Last 3 Months or Most Recently Relevant to Health Maintenance Insurance [facility] STANDARD Care Teams Collar Starcher Relationship Specialty Start Date End Date Maria Teresa Levin FNP [address] [place] [id number] PCP - General Family Medicine 03/06/22
[2025-01-11 11:04] LABS: Hemoglobin A1C 138.0410 umol/L; Total Hemoglobin (HGBA1C) 3401.0870 umol/L
[2025-01-11 13:16] LABS: Alanine Aminotransferase 33 U/L (0-31); Albumin Level 4.4 g/dL (3.5-5.0); Alkaline Phosphatase 84 U/L (39-117); Aspartate Amino Transferase 35 U/L (5-31); Cholesterol 107 mg/dL (<200); HDL Cholesterol 41 mg/dL (>40); Total Protein 7.5 g/dL (6.5-8.0); Triglycerides 130 mg/dL (<150)
== END 2025-01-11 08:28 | disposition home or self-care (01) ==
LOC: HO.US 08:27
PROVIDERS: PCP Registered Nurse; Visit Provider Registered Nurse
DX: R74.01 Elevation of levels of liver transaminase levels (principal); K76.0 Fatty (change of) liver, not elsewhere classified
CPT/HCPCS: 36415; 76700; 76981; 80061; 80076; 83036

== ENCOUNTER → 2025-01-11 08:33 | Outpatient (BNV) | payer MEDICAID, SELFPAY | PROVIDERS: PCP Registered Nurse; Visit Provider Radiology Diagnostic Radiology | DX: K76.0 Fatty (change of) liver, not elsewhere classified (principal); K86.89 Other specified diseases of pancreas | CPT/HCPCS: 76700; 76981 ==

== ENCOUNTER 2025-02-18 13:19 | Outpatient (REF) | payer MEDICAID, SELFPAY ==
--- OUTSIDE RECORDS SUMMARY | 2025-02-18 14:12 | XMS_ITS | Clinical Summary ---
Author Organization [employer] Address [address] [facility] [address] [place] [address] Care Team Providers Care Charging Manipulator Name Role Phone Maria Teresa Levin MERVIN Primary Care Provider [phone] Allergies Active Allergy Reactions Criticality Noted Date [...] used with Nebulizer 1 kit 1 Active albuterol (Ventolin HFA) 108 (90 Base) MCG/ACT inhalerIndicati ons:Wheezing INHALE 2 PUFFS BY MOUTH EVERY 4 HOURS NEEDED FOR WHEEZING 18 g 3 025 Active Magnesium 400 MG capsuleIndicati ons:Routine health maintenance Take 1 tablet nightly before bed 90 capsule 1 Active omeprazole (PriLOSEC) [address] capsuleIndicati ons:Gastroesoph ageal reflux disease, unspecified whether esophagitis present TAKE 1 CAPSULE BY MOUTH EVERY DAY BEFORE A MEAL 90 capsule 3 Active naloxone (Narcan) 4 mg/0.1 mL nasal spray Administer 1 spray (4 mg) into affected nostril(s) if needed for opioid reversal. May repeat every 2-3 minutes if needed, alternating nostrils, until medical assistance becomes available. 2 each 2 025 2025 Active celecoxib (CeleBREX) 200 MG capsuleIndicati ons:Fibromyalgi a TAKE 1 CAPSULE(200 MG) BY MOUTH IN THE MORNING AND AT BEDTIME NEEDED FOR MODERATE PAIN 60 capsule 3 Active oxyCODONE-aceta minophen (Percocet) 5-325 MG tabletIndicatio ns:Fibromyalgia Take 1 tablet by mouth every 6 (six) hours if needed for severe pain for up to 28 days. Do not start before February 17, 2025. 112 tablet 025 2024 Active cyclobenzaprine (Flexeril) 10 MG tablet TAKE 1 TABLET BY MOUTH AT BEDTIME FOR MUSCLE SPASM 30 tablet 3 Active sulfamethoxazol e-trimethoprim (Bactrim DS) 800-160 MG tablet Take 1 tablet by mouth 2 times daily for 3 days. 6 tablet 025 2024 Active fluconazole (Diflucan) 150 MG tablet Take 1 tablet (150 mg) by mouth 1 (one) time for 1 dose. 1 tablet 025 2024 Active acetaminophen (Tylenol Extra Strength) 500 MG tablet Take 1 tablet (500 mg) by mouth if needed in the morning and at bedtime for mild pain. 40 tablet 1 025 2025 Active cyclobenzaprine (Flexeril) 10 MG tablet TAKE 1 TABLET BY MOUTH AT BEDTIME FOR MUSCLE SPASM 30 tablet 3 025 2024 Discontinued oxyCODONE-aceta minophen (Percocet) 5-325 MG tabletIndicatio ns:Fibromyalgia Take 1 tablet by mouth every 6 (six) hours if needed for severe pain for up to 28 days. Do not start before January 20, 2025. 112 tablet 025 2024 Discontinued(R eorder (will not trigger notification to Pharmacy)) Active Problems Problem Noted Date Diagnosed Date Long-term current use of opiate analgesic 2023 Overview (03/23/2024): Medication: Percocet 5-325mg Q6H PRN (30 MME) Indication: fibromyalgia Last [employer] Agreement: 09/05/23 Tier II: Q3 month [employer] visits (tele OK every other) Assessment & Plan (08/20/2024 12:34 PM EST): Timeline: - 11/04/23: [employer] Tele, pill count WNL - 01/01/24: [employer] Tele, pill count WNL Assessment & Plan (04/17/2024 1:17 PM EDT): Timeline: - 11/04/23: [employer] Tele, pill count WNL - 01/01/24: [employer] Tele, pill count WNL - Next [employer] scheduled: 04/23/24 Nonimmune to hepatitis B virus [...] hx CVD, tobacco use ASCVD risk: 6.3% ([place] '08 calc) Shared decision making to continue with lifestyle interventions and initiation mod-intensity statin Start rosuvastatin 10mg nightly. Reviewed med safety and SE Routine health maintenance 07/13/2022 Overview (08/20/2024): Pap: s/p total hysterectomy with prior malignant uterine cervix neoplasm, followed by [facility] [employer]. Following with specialist. Mammo: BIRADS 1 on [...] prior malignant uterine cervix neoplasm, followed by [facility] [employer]. She will call to schedule f/u. Mammo: BIRADS 1 on 09/19/22 C-scope: Seen for pre-colonoscopy screening 04/2020. Reports completed Cologuard within past few year, normal. Interested in colonoscopy, referred 02/26/23. Eye: reports [facility] Dental: discuss at follow up Last PE: 02/26/23 Assessment & Plan (02/26/2023 10:10 AM EDT): PAP: s/p total hysterectomy with prior malignant uterine cervix neoplasm, followed by [facility] [employer]. She will call to schedule f/u. Mammo: 09/12/2021: BIRADS-1. Reports had one earlier this year, will request from [employer]. C-scope: Seen for pre-colonoscopy screening 04/2020. Reports completed Cologuard within past few year, normal. Interested in colonoscopy, referred 02/26/23. Eye: reports [facility]: discuss at follow up Assessment & Plan (07/14/2022 11:53 AM EST): PAP: s/p total hysterectomy with prior malignant uterine cervix neoplasm, followed by [facility] [employer]. She will call to schedule f/u. Mammo: 09/12/2021: BIRADS-1 C-scope: Seen for pre-colonoscopy screening 04/2020. Discuss at follow up Eye: referral to [facility] Dental: discuss at follow up [...] with cyclobenzaprine PRN, heat, and massage -Encouraged [facility] Acupuncture clinic, and to continue with pharm and non-pharm modalities of pain control -Previously following with [facility] -Labs: AYAD, RF, neg October 2023. Mild elevation of CRP and sed rate Assessment & Plan (02/12/2024 5:42 PM EDT): -Continues with oxycodone-APAP 5mg Q6H PRN -Continues with cyclobenzaprine PRN, heat, and massage -Encourage [facility] Acupuncture clinic -Previously following with [facility] -Labs: AYAD, RF, neg October 2023. Mild elevation of CRP and sed rate Assessment & Plan (10/17/2023 9:07 AM EDT): -Continues with oxycodone-APAP 5mg Q8H -Continues with cyclobenzaprine PRN, heat, and massage -Encourage [facility] Acupuncture clinic -Previously following with [facility] -Plan: trial Celebrex PRN instead of ibuprofen. Reviewed med safety and SE. Repeat lab work including AYAD given polyarthralgias and reported swelling of upper extremities Assessment & Plan (06/27/2023 3:41 PM EST): -Currently controlled with oxycodone-APAP 5mg Q8H -Continues with cyclobenzaprine PRN, heat, and massage -Encourage [facility] Acupuncture clinic and group medical visits -Previously following with [facility] Assessment & Plan (03/28/2023 12:16 PM EDT): -Currently controlled with oxycodone-APAP 5mg Q8H -Continues with cyclobenzaprine PRN, heat, and massage -Encourage [facility] Acupuncture clinic -Upcoming appt with [facility] Assessment & Plan (02/26/2023 10:02 AM EDT): -Currently controlled with oxycodone-APAP 5mg. Increase from Q8H to Q6H PRN x 1 month as pt experiencing especially stressful time that is triggering fibro flares. Re-eval in 1 month -Continues with cyclobenzaprine PRN, heat, and massage -Encouraged [facility] Acupuncture clinic -Followed by [facility] Assessment & Plan (07/14/2022 11:58 AM EST): -Currently controlled with oxycodone 5mg Q8H PRN. Will switch back to oxycodone-acetaminophen to eliminate daily use of ibuprofen 800mg TID (following with [employer] RN) -Continues with cyclobenzaprine PRN, heat, and massage -Encouraged [facility] Acupuncture clinic -Followed by [facility] Follow up in 3 months for chronic conditions, sooner as needed. Vitamin D deficiency 05/07/2016 Resolved Problems Problem Noted Date Diagnosed Date Resolved Date Elevated LFTs 08/12/2018 07/14/2022 Encounters Date Type Department Care Team Description 02/18/2025 8:40 AM EDT Office Visit [facility] [address] [place] [address] Gale Rodney DO Acute UTI (Primary Dx) 02/18/2025 Travel 02/17/2025 Refill [facility] [address] [place] [address] Maria Teresa Levin FNP 02/17/2025 Travel 02/16/2025 Refill [facility] [address] [place] [address] John Green MD Fibromyalgia 01/19/2025 Refill [facility] [address] [place] [address] Maria Teresa Levin FNP Fibromyalgia 01/19/2025 Refill [facility] [address] [place] [address] Maria Teresa Levin FNP Fibromyalgia 01/19/2025 Refill [facility] [address] [place] [address] Shakira Teixeira MD Fibromyalgia 01/18/2025 1:30 PM EDT Telemedicine [facility] [address] [place] [address] 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, 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 left knee 01/18/2025 Refill [facility] [address] [place] [address] 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, JEB 01/18/2025 Travel 01/11/2025 Travel 01/05/2025 Refill [facility] [address] [place] [address] Maria Teresa Levin FNP Gastroesophageal reflux disease, unspecified whether esophagitis present 12/22/2024 Refill [facility] [address] [place] [address] Maria Teresa Levin FNP Fibromyalgia 12/10/2024 Refill [facility] [address] [place] [address] Maria Teresa Levin FNP Wheezing 11/24/2024 Refill [facility] [address] [place] [address] John Green MD Fibromyalgia 11/18/2024 9:00 AM EDT Office Visit [facility] [address] [place], [place] [phone] Maria Teresa Levin FNP Prediabetes (Primary Dx); Routine health maintenance; Pure hypercholesterolemia; Dietary counseling; Exercise counseling; Fatty liver disease, nonalcoholic; Sinus pressure; Cigarette nicotine dependence without complication 11/18/2024 Travel from Last 3 Months Family History [...] t he electric, gas, oil or water [employer] threatened to shut off services in your [...] Sign Reading Time Taken Comments Blood Pressure 148/78 02/18/2025 8:41 AM EDT Pulse 83 02/18/2025 8:41 AM EDT Temperature 37.1 C (98.7 F) 02/18/2025 8:41 AM EDT Respiratory Rate 20 02/18/2025 8:41 AM EDT Oxygen Saturation 98% 09/15/2024 9:06 AM EDT Inhaled Oxygen Concentration - - Weight 89.7 kg (197 lb 12.8 oz) 02/18/2025 8:41 AM EDT Height 154.9 cm (5' 1 ) 02/18/2025 8:41 AM EDT Body Mass Index 37.37 02/18/2025 8:41 AM EDT Plan of Treatment Upcoming Encounters Date Type Department Care Team ([facility] st Contact Info) Description 02/24/2025 9:00 AM EDT Office Visit [facility] [address] [place] [address] Maria Teresa Levin FNP [address] [place] [address] 04/06/2025 10:30 AM EDT Clinical Support [facility] [address] [place] [address] 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, RN [address] [place] [address] Health Maintenance Due Date Last Done Comments CT Colonography 1970 Colonoscopy 1970 FIT 1970 FOBT 1970 Sigmoidoscopy 1970 Mammogram 08/13/2024 08/13/2023, 02/0 12/2023, 09/12/2021, Additional history exists Influenza Vaccine (#1) 2025 Alcohol/Substance Use Screening 08/19/2025 08/19/2024 COVID-19 Vaccine (1 - 2023-25 season) 2025 Postponed from 03/08/2024 (Patient Refused) [...] 08/20/2025 Pos tponed from 2019 (Patient Refused) Depression Screening 11/18/2025 11/18/2024, 11/19/19 25 Disability Screening 11/18/2025 11/18/2024 SDOH Screening 11/18/2025 11/18/2024 Diabetes: Hemoglobin A1C 01/11/2026 025, 11/12/2024, 09/24/2024, Additional history exists Tobacco Screening 02/18/2026 02/18/2025 Colorectal Cancer Screening 01/15/2028 FIT DNA/Cologuard 01/15/2028 01/14/2025, 01/09/2022 Lipid Panel 01/11/2030 01/11/2025, 05/0 02/2025, 09/24/2024, Additional history exists RSV Patients and Patients Aged 60 years or older (1 - 1-dose 75+ series) 2044 HIV Screening Completed 09/24/2024, 08/2 10/2022, 12/25/2021 Hepatitis C Screening Completed 09/24/2024 , [...] Name Priority Date/Time Associated Diagnosis Comments POCT URINALYSIS DIPSTICK Routine 02/18/2025 8:53 AM EDT Acute UTI LAB COLOGUARD COLON CANCER SCREEN Routine 01/14/2025 7:05 AM EDT Screening for colon cancer LIPID PANEL, STANDARD Routine 01/11/2025 10:15 AM EDT Pure hypercholesterolemia HEMOGLOBIN A1C Routine 01/11/2025 10:15 AM EDT Prediabetes HEPATIC FUNCTION PANEL Routine 01/11/2025 10:15 AM EDT Fatty liver disease, nonalcoholic US ABDOMEN COMPLETE WITH ELASTOGRAPHY Routine 01/11/2025 8:48 AM EDT Fatty liver disease, nonalcoholic HEPATITIS C VIRAL RNA, QUANTITATIVE, REAL-TIME PCR Routine 09/24/2024 7:35 AM EDT Healthcare maintenance HIV 1/2 ANTIGEN/ANTIBODY, FOURTH GENERATION W/RFL Routine 09/24/2024 7:35 AM EDT Healthcare maintenance BI MAMMOGRAM DIAGNOSTIC TOMOSYNTHESIS BILATERAL Routine 08/13/2023 9:00 AM EST Breast pain in female from Last 3 Months or Most Recently Relevant to Health Maintenance Results * (ABNORMAL) POCT Urinalysis (02/18/2025 8:53 AM EDT) Color, UA Light Yellow Clarity, UA Clear Glucose, UA Negative Bilirubin, UA Negative Ketones, UA Negative Spec Grav, UA 1.020 Blood, UA Positive(A) Negative, None Detected Comment:Small pH, UA 6.5 Protein, UA Negative Urobilinogen, UA 0.2 Leukocytes, UA Trace Negative, Rare, Trace Nitrite, UA Positive(A) Negative, None Detected Appearance, UA clear QC Media Lot # [id number] Lot# Expiration Date [id number] Urine 02/18/2025 8:53 AM EDT Gale Rashaun DO POINT OF CARE TEST ENTER/KEATON T ORDERABLES Final Result * Cologuard?? colon cancer screening (01/14/2025 7:05 AM EDT) Cologuard Result Negative Negative 01/23/20 1:00 PM EDT [facility] (CLIA #:[id number]) Comment: The Cologuard (TM) test was performed on this specimen. NEGATIVE TEST RESULT. A negative Cologuard result indicates a low likelihood that a colorectal cancer (CRC) or advanced adenoma (adenomatous polyps with more advanced pre-malignant features) is present. The chance that a person with a negative Cologuard test has a colorectal cancer is less than 1 in 1500 (negative predictive value >99.9%) or has an advanced adenoma is less than 5.3% (negative predictive value 94.7%). These data are based on a prospective cross-sectional study of 10,000 individuals at average risk for colorectal cancer who were screened with both Cologuard and colonoscopy. (Jhoan Munoz al, N Engl J Med 2014;370(14):1286- 1297) The normal value (reference range) for this assay is negative. COLOGUARD RE-SCREENING RECOMMENDATION: Periodic colorectal cancer screening is an important part of preventive healthcare for asymptomatic individuals at average risk for colorectal cancer. Following a negative Cologuard result, the [place] Cancer Society and U.S. Multi-Society Task Force screening guidelines recommend a Cologuard re-screening interval of 3 years. References: [place] Cancer Society Guideline for Colorectal Cancer Screening: https://www.cancer.org/cancer/udzis-qhklke-oukkre/bsecznvyu-cqttrfnen-nnhhsqk/ac s-rec ommendations.html.; Orville DK, Eleni CR, Lo JamesK, Colorectal Cancer Screening: Recommendations for Physicians and Patients from the U.S. Multi-Society Task Force on Colorectal Cancer Screening , Am J Gastroenterology 2017; 112:7111-7188. TEST DESCRIPTION: Composite algorithmic analysis of stool DNA-biomarkers with hemoglobin immunoassay. Quantitative values of individual biomarkers are not reportable and are not associated with individual biomarker result reference ranges. Cologuard is intended for colorectal cancer screening of adults of either sex, 45 years or older, who are at average-risk for colorectal cancer (CRC). Cologuard has been approved for use by the U.S. FDA. The performance of Cologuard was established in a cross sectional study of average-risk adults aged 50-84. Cologuard performance in patients ages 45 to 49 years was estimated by sub-group analysis of near-age groups. Colonoscopies performed for a positive result may find as the most clinically significant lesion: colorectal cancer [4.0%], advanced adenoma (including sessile serrated polyps greater than or equal to 1cm diameter) [20%] or non- advanced adenoma [31%]; or no colorectal neoplasia [45%]. These estimates are derived from a prospective cross-sectional screening study of 10,000 individuals at average risk for colorectal cancer who were screened with both Cologuard and colonoscopy. (Jhoan Campa et al, N Engl J Med 2014;370(14):5045-2113.) Cologuard may produce a false negative or false positive result (no colorectal cancer or precancerous polyp present at colonoscopy follow up). A negative Cologuard test result does not guarantee the absence of CRC or advanced adenoma (pre-cancer). The current Cologuard screening interval is every 3 years. ([place]izen [place] Cancer Society and U.S. Multi-Society Task Force). Cologuard performance data in a 10,000 patient pivotal study using colonoscopy as the reference method can be accessed at the following location: www.[employer].YouFig/results. Additional description of the Cologuard test process, warnings and precautions can be found at www.cologuard.com. Stool specimen (specimen) 01/14/2025 7:05 AM EDT 01/15/2025 10:54 AM EDT Maria Teresa Levin [facility]LE[facility] ORDE RABLISSA Final Result Performing Organization Address [facility] Co de Phone Number [employer] [facility] (CLIA #:[id number]) [address] [place] [address], * Hemoglobin A1c (01/11/2025 10:15 AM EDT) Hemoglobin A1c 5.9 <6.0 % [facility] Comment:Hemoglobin A1C Refer ence Range Adults: 4.8 - 6.0 % Non diabetic: < 6.0 % Goal: < 7.0 %Additional Action Suggested: > 8.0 %Note: Hemoglobin A1c results are invalid for patients with abnormal amounts of HbF. Blood transfusions may impact the HbA1c concentration in the patient sample. Estimated Average Glucose 123 mg/dL [facility] Comment:eAG = Estimated ave rage glucose which is %A1C expressed asaverage glucose, using the formula of the L2Z-LjbywzqRkzwfbv Glucose study (ADAG), Diabetes Care, Vol.31,#8,Feb. 2007 Blood Venous blood specimen / Unknown 01/11/2025 10:15 AM EDT 01/11/2025 10:15 AM EDT [facility] LAB BLOOD ORDERABLES Final Res ult Performing Organization Address [facility]/ZIP Co de Phone Number [facility] [address] [place] [phone] * (ABNORMAL) Hepatic Function Panel (01/11/2025 10:15 AM EDT) Bilirubin, Total 0.5 0.0 - 1.0 mg/dL [facility] Bilirubin, Direct 0.2 0.0 - 0.5 mg/dL [facility] Aspartate Amino Transferase 35(H) 5 - 31 U/L [facility] Alanine Aminotransferase 33(H) 0 - 31 U/L [facility] Total Protein 7.5 6.5 - 8.0 g/dL [facility] Albumin Level 4.4 3.5 - 5.0 g/dL [facility] Alkaline Phosphatase 84 39 - 117 U/L [facility] Blood Venous blood specimen / Unknown 01/11/2025 10:15 AM EDT 01/11/2025 10:15 AM EDT us Maria Teresa Levin [employer] LAB BLOOD ORDERABLES Final Res ult [facility] [address] [place] [phone] * Lipid Panel, Standard (01/11/2025 10:15 AM EDT) Triglycerides 130 <150 mg/dL [facility] Comment:Desirable Triglyceri de: less than 150 mg/dLBorderline High Triglyceride 150-199 mg/dLHigh Triglyceride: 200-499 mg/dLVery High Triglyceride: greater than or equal to 5OO mg/dL Cholesterol 107 <200 mg/dL [facility] Comment:Desirable Cholestero l: less than 200 mg/dLBorderline High Cholesterol: 200-239 mg/dLHigh Cholesterol: greater than 239 mg/dL LDL Cholesterol Calculated 40 <100 mg/dL [facility] Comment:Desirable LDL: less than 100 mg/dLNear Optimal/Above Optimal LDL: 110- 129 mg/dLBorderline High LDL: 130-159 mg/dLHigh LDL: 160-189 mg/dLVery High LDL: greater than or equal to 190 mg/dL HDL Cholesterol 41 >40 mg/dL [facility] Comment:Desirable HDL: great er than 40 mg/dL Note: This HDL assay may give artificially low results in patients with liver disease. Blood Venous blood specimen / Unknown 01/11/2025 10:15 AM EDT 01/11/2025 10:15 AM EDT us Maria Teresa Levin [employer] LAB BLOOD ORDERABLES Final Res ult [facility] [address] [place] [phone] * US Abdomen Comp w elastography (01/11/2025 8:48 AM EDT) Anatomical Region Laterality Modality Abdomen Ultrasound 01/11/2025 8:48 AM EDT Narrative 01/11/2025 10:13 AM EDT [address] [address] Ultrasound Report Signed Patient: Edelmira Bartholomew MR#: [id number] : 1970 Acct:[id number] Age/Sex: 54 / F ADM Date: 01/11/25 Loc: HO.US Attending Dr: Maria Teresa JEFFRIES Ordering Physician: Maria Teresa Levin Date of Service: 01/11/25 Procedure(s): US abdomen comp w elastography Accession Number(s): [id number] cc: Maria Teresa Levin EXAMINATION: US ABDOMEN COMPLETE WITH LIVER ELASTOGRAPHY HISTORY: Transaminitis x > 6 Months. Abd US w/ elastography for further evaluation. TECHNIQUE: Real-time grayscale ultrasound imaging of the abdomen was performed and images were reviewed. COMPARISON: Comparison is made with the prior examination dated 08/18/2018. FINDINGS: Liver: The right lobe of the liver measures 14.7 cm in size. The left lobe of the liver measures 12.7 cm in size. The liver demonstrates increased echotexture, consistent with steatosis. No focal mass or intrahepatic biliary ductal dilatation is identified. There is normal hepatopedal flow in the portal vein. Ultrasound elastography of the liver was performed with 10 separate measurements of the liver parenchyma with the patient in the supine position. Measurements were obtained approximately 2 cm below Riley's capsule and perpendicular to the capsule. The median shear wave velocity is 1.67 m/s. The interquartile range/median (IQR/median) is 0.13. Gallbladder and biliary tree: Multiple shadowing calculi are noted in the gallbladder. There is no wall thickening or pericholecystic fluid. There is no sonographic Valente sign. The common bile duct is normal in caliber measuring 4 mm. Kidneys: The right kidney measures 11.6 cm in length. The left kidney measures 10.3 cm in length. The kidneys are unremarkable, without evidence of masses, hydronephrosis, or calculi. Pancreas: Again seen is a hypoechoic focus in the pancreatic body measuring 10 x 5 x 7 mm, similar to the prior study. This was previously evaluated on MRI 09/18/2018] demonstrated benign features. The pancreatic duct is normal in caliber. Spleen: The spleen is normal in size and contour, measuring 8.6 cm in length. Abdominal aorta and inferior vena cava: The visualized portions of the abdominal aorta and inferior vena cava are normal in caliber. There is no free fluid in the abdomen. US/US abdomen comp w elastography IMPRESSION: Hepatic steatosis. Stable 10 mm hypoechoic focus in the pancreatic body. The median shear wave velocity in the liver is 1.67 m/s, corresponding to a median liver stiffness of 8.52 kPa. The IQR/median value is 0.13. This is indicative of a quality data set. Findings are indicative of a low elastography value which rules out advanced chronic liver disease in asymptomatic patients. REFERENCE: Society of [employer] in Ultrasound Liver Stiffness Thresholds (2020): LIVER STIFFNESS THRESHOLDS: *Shear wave velocity less than 1.3 m/s (Liver Stiffness equal or less than 5 kPa): High probability of being normal. *Shear wave velocity less than 1.7 m/s (Liver Stiffness less than 9 kPa): In the absence of other known clinical signs, rules out compensated advanced chronic liver disease. *Shear wave velocity between 1.7-2.1 m/s (Liver Stiffness 9-13 kPa): Suggestive of compensated advanced chronic liver disease but need further test for confirmation. *Shear wave velocity between 2.1-2.4 m/s (Liver Stiffness 13-17 kPa): Rules in compensated advanced chronic liver disease. *Shear wave velocity greater than 2.4 m/s (Liver Stiffness over 17 kPa): Suggestive of clinically significant portal hypertension. QUALITY OF DATA SET: *IQR/Median value equal or less than 0.15 implies a quality data set. *IQR/Median value over 0.15 implies a poor quality data set. SIGNIFICANT CHANGE FROM PRIOR EXAM: Significant change if liver stiffness measurement is 10% or greater from prior exam. OTHER CONSIDERATIONS: The stage of liver fibrosis may be overestimated in the setting of acute hepatitis, liver inflammation, elevated liver function tests, hepatic vascular congestion, obstructive cholestasis, non-fasting state, and infiltrative diseases such as amyloidosis and lymphoma. In some patients with NAFLD, the liver stiffness thresholds for compensated advanced chronic liver disease may be lower. In causes other than viral hepatitis and NAFLD, liver stiffness thresholds are not well established. Electronically signed by: Chas Peguero MD 01/11/2025 10:10 AM EDT RP Dictated By: Chas Peguero MD Signed By: <Electronically signed by Chas Peguero MD in OV> 01/11/25 1010 DD/ 0848 TD/TT: 01/11/25 0938 Electrical Engineering Manager: Procedure Note Donotuseinterpreter, Image - 01/11/2025 [place] [address] Ultrasound Report Signed Patient: Edelmira Bartholomew YMR#: [id number] 071 : 1970Acct:[id number] Age/Sex: 54 / FADM Date: 01/11/25 Loc: HO.US Attending Dr: Maria Teresa JEFFRIES Ordering Physician: Maria Teresa Levin Date of Service: 01/11/25 Procedure(s): US abdomen comp w elastography Accession Number(s): [id number] cc: Maria Teresa Levin EXAMINATION: US ABDOMEN COMPLETE WITH LIVER ELASTOGRAPHY HISTORY: Transaminitis x > 6 Months. Abd US w/ elastography for further evaluation. TECHNIQUE: Real-time grayscale ultrasound imaging of the abdomen was performed and images were reviewed. COMPARISON: Comparison is made with the prior examination dated 08/18/2018. FINDINGS: Liver: The right lobe of the liver measures 14.7 cm in size. The left lobe of the liver measures 12.7 cm in size. The liver demonstrates increased echotexture, consistent with steatosis. No focal mass or intrahepatic biliary ductal dilatation is identified. There is normal hepatopedal flow in the portal vein. Ultrasound elastography of the liver was performed with 10 separate measurements of the liver parenchyma with the patient in the supine position. Measurements were obtained approximately 2 cm below Riley's capsule and perpendicular to the capsule. The median shear wave velocity is 1.67 m/s. The interquartile range/median (IQR/median) is 0.13. Gallbladder and biliary tree: Multiple shadowing calculi are noted in the gallbladder. There is no wall thickening or pericholecystic fluid. There is no sonographic Valente sign. The common bile duct is normal in caliber measuring 4 mm. Kidneys: The right kidney measures 11.6 cm in length. The left kidney measures 10.3 cm in length. The kidneys are unremarkable, without evidence of masses, hydronephrosis, or calculi. Pancreas: Again seen is a hypoechoic focus in the pancreatic body measuring 10 x 5 x 7 mm, similar to the prior study. This was previously evaluated on MRI 09/18/2018] demonstrated benign features. The pancreatic duct is normal in caliber. Spleen: The spleen is normal in size and contour, measuring 8.6 cm in length. Abdominal aorta and inferior vena cava: The visualized portions of the abdominal aorta and inferior vena cava are normal in caliber. There is no free fluid in the abdomen. US/US abdomen comp w elastography IMPRESSION: Hepatic steatosis. Stable 10 mm hypoechoic focus in the pancreatic body. The median shear wave velocity in the liver is 1.67 m/s, corresponding to a median liver stiffness of 8.52 kPa. The IQR/median value is 0.13. This is indicative of a quality data set. Findings are indicative of a low elastography value which rules out advanced chronic liver disease in asymptomatic patients. REFERENCE: Society of [employer] in Ultrasound Liver Stiffness Thresholds (2020): LIVER STIFFNESS THRESHOLDS: *Shear wave velocity less than 1.3 m/s (Liver Stiffness equal or less than 5 kPa): High probability of being normal. *Shear wave velocity less than 1.7 m/s (Liver Stiffness less than 9 kPa): In the absence of other known clinical signs, rules out compensated advanced chronic liver disease. *Shear wave velocity between 1.7-2.1 m/s (Liver Stiffness 9-13 kPa): Suggestive of compensated advanced chronic liver disease but need further test for confirmation. *Shear wave velocity between 2.1-2.4 m/s (Liver Stiffness 13-17 kPa): Rules in compensated advanced chronic liver disease. *Shear wave velocity greater than 2.4 m/s (Liver Stiffness over 17 kPa): Suggestive of clinically significant portal hypertension. QUALITY OF DATA SET: *IQR/Median value equal or less than 0.15 implies a quality data set. *IQR/Median value over 0.15 implies a poor quality data set. SIGNIFICANT CHANGE FROM PRIOR EXAM: Significant change if liver stiffness measurement is 10% or greater from prior exam. OTHER CONSIDERATIONS: The stage of liver fibrosis may be overestimated in the setting of acute hepatitis, liver inflammation, elevated liver function tests, hepatic vascular congestion, obstructive cholestasis, non-fasting state, and infiltrative diseases such as amyloidosis and lymphoma. In some patients with NAFLD, the liver stiffness thresholds for compensated advanced chronic liver disease may be lower. In causes other than viral hepatitis and NAFLD, liver stiffness thresholds are not well established. Electronically signed by: Chas Peguero MD 01/11/2025 10:10 AM EDT Dictated By: Chas Peguero MD Signed By: <Electronically signed by Chas Peguero MD in OV> 01/11/25 1010 DD/ 0848 TD/TT: 01/11/25 0938 Electrical Engineering Manager: us Maria Teresa JEFFRIES IMG US PROCEDURES Final Result * Hepatitis C Viral RNA, Quantitative, Real-Time PCR (09/24/2024 7:35 AM EDT) Hepatitis C Viral Load <15 NOT DETECTED NOT DETECTED IU/mL [facility] HCV Log PCR <1.18 NOT DETECTED NOT DETECTED Log IU/mL [facility] Comment:For additional infor matcherelle, please refer tohttp://education.[employer]/faq/VGF90v7(This link is being provided for informational/educational purposes only.)THIS TEST WAS PERFORMED AT:[employer] [place] [phone] BORRERO MD Blood 09/24/2024 7:35 AM EDT 09/24/2024 7:35 AM EDT us Maria Teresa JEFFRIES LAB BLOOD ORDERABLES Final Res ult [facility] [address] [place] [phone] * HIV-1/2 Antigen and Antibodies, Fourth Generation, with Reflexes (09/24/2024 7:35 AM EDT) HIV AB/AG Nonreactive Nonreactive [facility] Comment:HIV-1 p24 Ag and/or HIV-1/HIV-2 Ab not detected.A test result that is nonreactive does not exclude thepossibility of exposure to or infection with HIV-1 and/orHIV-2. Nonreactive results in this assay for individualswith prior exposure to HIV-1 and/or HIV-2 may be due toantigen and antibody levels that are below the limit ofdetection of this assay.The UpTo HIV Ag/Ab Combo assay result andsupplemental assay results should be interpreted inconjunction with the patient's clinical presentation,history and other laboratory results. If the results areinconsistent with clinical evidence, additional testing issuggested to confirm the result. Blood Venous blood specimen / Unknown 09/24/2024 7:35 AM EDT 09/24/2024 7:35 AM EDT us Maria Teresa JEFFRIES LAB BLOOD ORDERABLES Final Res ult [facility] [address] [place] [phone] * BI Mammogram Diagnostic Tomosynthesis Bilateral (08/13/2023 9:00 AM EST) Anatomical Region Laterality Modality Breast Bilateral Mammography 08/13/2023 9:00 AM EST Narrative 08/13/2023 9:18 AM EST [facility] [address] [place] [address] Mammography Report Signed Patient: Edelmira Bartholomew MR#: [id number] 071 : 1970 Acct:[id number] Age/Sex: 53 / F ADM Date: 08/13/23 Loc: HO.MAMMO Attending Dr: Maria Teresa JEFFRIES Ordering Physician: Maria Teresa Levin Results: 1Negat thelma Date of Service: 08/13/23 Follow Up: 1 Year From Orig ina Mammogram Procedure(s): MM tomosynthesis diagnostic BI Accession Number(s): [id number] cc: Maria Teresa Levin NUISANCE ANIMAL DAMAGE CONTROL AGENT EXAMINATION: MM DIAGNOSTIC DIGITAL BREAST TOMOSYNTHESIS, BILATERAL [...] in OV> 08/13/23 0914 DD/ 0900 TD/TT: Electrical Engineering Manager: Procedure Note Donotuseinterpreter, Image - 08/13/2023 [facility] [address] [place] [address] Mammography Report Signed Patient: Edelmira Bartholomew YMR#: [id number] : 1970Acct:[id number] Age/Sex: 53 / FADM Date: 08/13/23 Loc: HO.MAMMO Attending Dr: Maria Teresa Levin NUISANCE ANIMAL DAMAGE CONTROL AGENT Ordering Physician: Maria Teresa Levin FNPResults: 1Negat thelma Date of Service: 08/13/23Follow Up: 1 Year From Orig ina Mammogram Procedure(s): MM tomosynthesis diagnostic BI Accession Number(s): [id number] cc: Maria Teresa Levin NUISANCE ANIMAL DAMAGE CONTROL AGENT EXAMINATION: MM DIAGNOSTIC DIGITAL BREAST TOMOSYNTHESIS, BILATERAL [...] in OV> 08/13/23 0914 DD/ 0900 TD/TT: Electrical Engineering Manager: Maria Teresa Levin [facility] IM BI PROCEDURES Edited Resul t - Final from Last 3 Months or Most Recently Relevant to Health Maintenance Insurance [employer] [phone] Care Teams Charging Manipulator Relationship Specialty Start Date End Date Maria Teresa Levin FNP [address] [place] [phone] PCP - General Family Medicine 03/06/22
== END 2025-02-18 13:20 | disposition home or self-care (01) ==
LOC: HO.HHCLNP 13:19
PROVIDERS: Visit Provider Family Medicine
DX: N39.0 Urinary tract infection, site not specified (principal)
CPT/HCPCS: 87086

== ENCOUNTER 2025-04-29 06:34 | Outpatient (REF) | payer MEDICAID, SELFPAY ==
--- OUTSIDE RECORDS SUMMARY | 2025-04-27 13:00 | XMS_ITS | Encounter Summary ---
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 The patient last took Percocet on: 04/27/25 Medication is: 60% % effective at alleviating pain. 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 TEAM LEADER Tier: 2 Current Medications[1] Smoking status: Yes 3-5 cigarettes/ day ETOH use: Denies Illicit substances: Denies Marijuana use: No Lab Results Component Value Date POCTHC Negative 04/27/2025 POCCOCAINEUR Negative 04/27/2025 POCOPIATEUR Negative 04/27/2025 DOAUR Negative 04/27/2025 POCAMPHETAMI Negative 04/27/2025 POCBENZODIUR Negative 04/27/2025 POCBARBSCRN Negative 04/27/2025 POCMETHADOUR Negative 04/27/2025 POCBUPSCRN Negative 04/27/2025 POCTCAUR Positive (A) 04/27/2025 POCMDMAUR Negative 04/27/2025 POCOXYCODONE Positive (A) 04/27/2025 POCPHENCYCUR Negative 04/27/2025 PROPOXUR Negative 04/27/2025 FENTANYLURIN Negative 04/27/2025 ASSESSMENT: Encounter Diagnosis Name Primary? Chronic pain of left knee Yes PLAN: Information on pain group given: Previously discussed Information on acupuncture given: Previously discussed Narcan education provided: Previously discussed Narcan prescription: active Edelmira Bartholomew will continue taking medication as prescribed and follow up at the next [facility] visit or sooner if needed. Edelmira Bartholomew has verbalized understanding of care plan. Future Appointments Date Time Provider Department Center 05/05/2025 9:00 AM MERVIN Maria MEDICINE [facility] 06/02/2025 9:30 AM 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 RN [facility] MED [facility] 06/24/2025 9:00 AM Linda Del Cid [facility] 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 RN [1] Current Outpatient Medications: acetaminophen (Tylenol Extra Strength) 500 MG tablet, Take 1 tablet (500 mg) by mouth if needed in the morning and at bedtime for mild pain., Disp: 40 tablet, Rfl: 1 albuterol (2.5 MG/3ML) 0.083% nebulizer solution, Take 3 mL (2.5 mg) by nebulization every 4 (four)hours if needed for wheezing., Disp: 75 mL, Rfl: 3 albuterol (Ventolin HFA) 108 (90 Base) MCG/ACT inhaler, Inhale 2 puffs every 4 (four) hours if needed for wheezing., Disp: 18 g, Rfl: 3 calcium carbonate (Calcium 600) 600 MG tablet, Take 1 tablet (600 mg) by mouth Once per day., Disp:90 tablet, Rfl: 3 celecoxib (CeleBREX) 200 MG capsule, TAKE 1 CAPSULE(200 MG) BY MOUTH IN THE MORNING AND AT BEDTIME NEEDED FOR MODERATE PAIN, Disp: 60 capsule, Rfl: 3 cholecalciferol (Vitamin D3) 25 MCG (1000 UT) tablet, TAKE 1 TABLET BY MOUTH ONCE DAILY, Disp: 90 tablet, Rfl: 3 cyclobenzaprine (Flexeril) 10 MG tablet, TAKE 1 TABLET BY MOUTH AT BEDTIME FOR MUSCLE SPASM, Disp: 30 tablet, Rfl: 3 hydroCHLOROthiazide 12.5 MG tablet, TAKE 1 TABLET(12.5 MG) BY MOUTH IN THE MORNING, Disp: 90 tablet, Rfl: 3 loratadine (Claritin) 10 MG tablet, Take 1 tablet (10 mg) by mouth if needed each day for allergies., Disp: 90 tablet, Rfl: 3 losartan (Cozaar) 50 MG tablet, Take 1 tablet (50 mg) by mouth Once daily. (For Blood Pressure), Disp: 90 tablet, Rfl: 3 Magnesium 400 MG capsule, Take 1 tablet nightly before bed, Disp: 90 capsule, Rfl: 1 naloxone (Narcan) 4 mg/0.1 mL nasal spray, Administer 1 spray (4 mg) into affected nostril(s) if needed for opioid reversal. May repeat every 2-3 minutes if needed, alternating nostrils, until medical assistance becomes available., Disp: 2 each, Rfl: 2 Nebulizers [facility], Use nebulizer as instructed, Disp: 1 each, Rfl: 0 omeprazole (PriLOSEC) [address] capsule, TAKE 1 CAPSULE BY MOUTH EVERY DAY BEFORE A MEAL, Disp: 90 capsule, Rfl: 3 oxyCODONE-acetaminophen (Percocet) 5-325 MG tablet, Take 1 tablet by mouth every 6 (six) hours if needed for severe pain for up to 28 days. Do not start before April 16, 2025., Disp: 112 tablet, Rfl: 0 Respiratory Therapy Supplies (Nebulizer/Tubing/Mouthpiece) kit, To be used with Nebulizer, Disp: 1 kit, Rfl: 1 rosuvastatin (Crestor) 10 MG tablet, TAKE 1 TABLET(10 MG) BY MOUTH AT BEDTIME FOR CHOLESTEROL, Disp: 90 tablet, Rfl: 3 documented in this encounter Plan of Treatment Upcoming Encounters Date Type Department Care Team (Late st Contact Info) Description 05/05/2025 9:00 AM EDT Office Visit [facility] MEDICINE [address] [place] [address] Maria Teresa Levin FNP [address] [place] [address] 06/02/2025 9:30 AM EST Clinical Support [facility] [address] [place], [place] [phone] 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, JEB [address] [place], [place] [phone] 06/24/2025 9:00 AM EST Office Visit [facility] OPTOMETRY [address] [place] [address] TarkaLinda, OD [address] [place] [address] documented as of this encounter Procedures Procedure Name Priority Date/Time Associated Diagnosis Comments POCT KEZIA-14 URINE DRUG SCREEN Routine 04/27/2025 12:55 PM EDT Chronic pain of left knee documented in this encounter Results * (ABNORMAL) POCT KEZIA-14 Urine Drug Screen (04/27/2025 12:55 PM EDT) THC Negative Negative Cocaine Screen, Urine Negative Negative Opiate Screen, Urine Negative Negative Methamphetamine Screen Urine Negative Negative Amphetamine Screen, Urine Negative Negative Benzodiazepines Screen, Urine Negative Negative Barbiturate Screen, Urine Negative Negative Methadone Screen, Urine Negative Negative Buprenophine Screen, Urine Negative Negative TCA, Urine Positive(A) Negative MDMA Urine Negative Negative ng/mL Oxycodone Screen, Urine Positive(A) Negative Comment:Rx Phencyclidine (PCP), Urine Negative Negative Propoxyphene, Urine Negative Negative Fentanyl, Urine Negative Negative Urine Urine specimen obtained by clean catch procedure / Unknown 04/27/2025 12:55 PM EDT Narrative 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 RN - 04/27/2025 12:55 PM EDT . Internal Pass Control Lot# [id number] Exp: 10-31-26 us Maria Teresa JEFFRIES POINT OF CARE TEST ENTER/EDIT ORDERABLES Final Result documented in this encounter Visit Diagnoses Diagnosis Chronic pain of left knee- Primary documented in this encounter Additional Health Concerns Assessment Noted Time PHQ-9 Depression Total Score: 2 11/19/19 25 9:10 AM EDT documented as of this encounter Care Teams Central Office Trouble Shooter Relationship Specialty Start Date End Date Maria Teresa Levin FNP [address] [place] [phone] PCP - General Family Medicine 03/06/22 documented as of this encounter
--- NOTE | ~2025-04-29 | XR_ITS ---
EXAMINATION: XR THORACIC SPINE 2 VIEWS HISTORY: ACUTE MIDLINE THORACIC BACK PAIN COMPARISON: There are no prior studies available for comparison. FINDINGS: AP and lateral views of the thoracic spine are submitted. Osseous mineralization is normal. The vertebral bodies maintain normal height without evidence of fracture or subluxation. There is mild levoscoliosis. The intervertebral disc spaces are preserved. The visualized paraspinal soft tissues are unremarkable. XR/XR thoracic spine 2V IMPRESSION: Mild levoscoliosis. Otherwise unremarkable examination of the thoracic spine. Electronically signed by: Chas Peguero MD 04/29/2025 06:55 AM EDT
--- OUTSIDE RECORDS SUMMARY | 2025-04-29 06:36 | XMS_ITS | Clinical Summary ---
Author Organization [employer] Address [address] [facility] [address] [place] [address] Care Team Providers Care Vendor Management Associate Name Role Phone Maria Teresa Levin MERVIN Primary Care Provider [phone] Allergies Active Allergy Reactions Criticality Noted Date Comments Amoxicillin Hives 05/28/2017 Clavulanic Acid Hives 05/28/2017 Penicillin G 03/04/2020 Shellfish Protein-Containing Drug Products Anaphylaxis High 07/06/2022 Throat closes, difficult breathing Medications * This document contains information received from the source organization and may not represent a complete record from that organization. hydroCHLOROthia zide 12.5 MG tablet TAKE 1 [...] for allergies. 90 tablet 3 025 Active Nebulizers miscIndications :Wheezing Use nebulizer as instructed 1 each 025 Active Respiratory Therapy Supplies (Nebulizer/Tubi ng/Mouthpiece) kitIndications: Wheezing To be used with Nebulizer 1 kit 1 025 Active omeprazole (PriLOSEC) [address] [...] medical assistance becomes available. 2 each 2 2025 Active celecoxib (CeleBREX) 200 MG capsuleIndicati ons:Fibromyalgi a TAKE 1 CAPSULE(200 MG) BY MOUTH IN THE MORNING AND AT BEDTIME NEEDED FOR MODERATE PAIN 60 capsule 3 Active cyclobenzaprine (Flexeril) 10 MG tablet TAKE 1 TABLET BY MOUTH AT BEDTIME FOR MUSCLE SPASM 30 tablet 3 Active acetaminophen (Tylenol Extra Strength) 500 MG tablet Take 1 tablet (500 mg) by mouth if needed in the morning and at bedtime for mild pain. 40 tablet 1 025 2025 Active Magnesium 400 MG capsuleIndicati ons:Routine health maintenance Take 1 tablet nightly before bed 90 capsule 1 Active calcium carbonate (Calcium 600) 600 MG tablet Take 1 tablet (600 mg) by mouth Once per day. 90 tablet 3 025 2025 Active albuterol (Ventolin HFA) 108 (90 Base) MCG/ACT inhalerIndicati ons:Wheezing Inhale 2 puffs every 4 (four) hours if needed for wheezing. 18 g 3 Active albuterol (2.5 MG/3ML) 0.083% nebulizer solutionIndicat ions:Wheezing Take 3 mL (2.5 mg) by nebulization every 4 (four) hours if needed for wheezing. 75 mL 3 025 2025 Active rosuvastatin (Crestor) 10 MG tablet TAKE 1 TABLET(10 MG) BY MOUTH AT BEDTIME FOR CHOLESTEROL 90 tablet 3 025 Active oxyCODONE-aceta minophen (Percocet) 5-325 MG tabletIndicatio ns:Fibromyalgia Take 1 tablet by mouth every 6 (six) hours if needed for severe pain for up to 28 days. Do not start before April 16, 2025. 112 tablet 025 2024 Active oxyCODONE-aceta minophen (Percocet) 5-325 MG tabletIndicatio ns:Fibromyalgia Take 1 tablet by mouth every 6 (six) hours if needed for severe pain for up to 28 days. Do not start before March 18, 2025. 112 tablet 025 2024 Discontinued(R eorder (will not trigger notification to Pharmacy)) Active Problems Problem Noted Date Diagnosed Date Long-term current use of opiate analgesic 2023 Overview (03/23/2024): Medication: Percocet 5-325mg Q6H PRN (30 MME) Indication: fibromyalgia Last PRINCIPAL STATISTICAL PROGRAMMER Agreement: 09/05/23 Tier II: Q3 month PRINCIPAL STATISTICAL PROGRAMMER visits (tele OK every other) Assessment & Plan (08/20/2024 12:34 PM EST): Timeline: - 11/04/23: PRINCIPAL STATISTICAL PROGRAMMER Tele, pill count WNL - 01/01/24: PRINCIPAL STATISTICAL PROGRAMMER Tele, pill count WNL Assessment & Plan (04/17/2024 1:17 PM EDT): Timeline: - 11/04/23: PRINCIPAL STATISTICAL PROGRAMMER Tele, pill count WNL - 01/01/24: PRINCIPAL STATISTICAL PROGRAMMER Tele, pill count WNL - Next PRINCIPAL STATISTICAL PROGRAMMER scheduled: 04/23/24 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 Declined on 02/11/24, follow up if/when interested in future Pure hypercholesterolemia 03/28/2023 Overview (02/24/2025): Continues rosuvastatin 10mg nightly Lab Results Component Value Date CHOL 107 01/11/2025 CHOL 110 11/12/2024 CHOL 100 09/24/2024 TRIG 130 01/11/2025 TRIG 109 11/12/2024 TRIG 93 09/24/2024 HDL 41 01/11/2025 HDL 36 (L) 11/12/2024 HDL 40 (L) 09/24/2024 LDLCHOLCAL 40 01/11/2025 LDLCHOLCAL 53 11/12/2024 LDLCHOLCAL 42 09/24/2024 -continue lifestyle modification Assessment & Plan (02/24/2025 5:27 PM EDT): Improvement in LDL and HDL values, cont current therapy Assessment & Plan (06/27/2023 3:40 PM EST): Repeat lipid panel, liver panel, and VitB12 Assessment & Plan (03/28/2023 12:25 PM EDT): Risk factors: Fam hx CVD, tobacco use ASCVD risk: 6.3% (Jennings '08 calc) Shared decision making to continue with lifestyle interventions and initiation mod-intensity statin Start rosuvastatin 10mg nightly. Reviewed med safety and SE Routine health maintenance 07/13/2022 Overview (02/23/2025): Pap: s/p total hysterectomy with prior malignant uterine cervix neoplasm, followed by [facility] [employer]. Following with specialist. Mammo: BIRADS 1 on 08/13/23 Cologuard negative 01/14/25 Last PE: 02/26/23 Hep B titer status: non-immune Feb 2024, IZ declined Assessment & Plan (08/20/2024 12:33 PM EST): - Declines IZ today, encouraged to consider in future Assessment & Plan (03/28/2023 12:20 PM EDT): PAP: s/p total hysterectomy with prior malignant uterine cervix neoplasm, followed by [facility] [employer]. She will call to schedule f/u. Mammo: BIRADS 1 on 09/19/22 C-scope: Seen for pre-colonoscopy screening 04/2020. Reports completed Cologuard within past few year, normal. Interested in colonoscopy, referred 02/26/23. Eye: reports UTD Dental: discuss at follow up Last PE: 02/26/23 Assessment & Plan (02/26/2023 10:10 AM EDT): PAP: s/p total hysterectomy with prior malignant uterine cervix neoplasm, followed by [facility]. She will call to schedule f/u. Mammo: 09/12/2021: BIRADS-1. Reports had one earlier this year, will request from [facility]. C-scope: Seen for pre-colonoscopy screening 04/2020. Reports completed Cologuard within past few year, normal. Interested in colonoscopy, referred 02/26/23. Eye: reports UTD Dental: discuss at follow up Assessment & Plan (07/14/2022 11:53 AM EST): PAP: s/p total hysterectomy with prior malignant uterine cervix neoplasm, followed by [facility]. She will call to schedule f/u. Mammo: 09/12/2021: BIRADS-1 C-scope: Seen for pre-colonoscopy screening 04/2020. Discuss at follow up Eye: referral to [facility] Dental: discuss at follow up Fatty liver disease, nonalcoholic 09/30/2018 Overview (02/24/2025): Abd US w/ elastography (01/2025): increased echotexture c/w steatosis. Velocity 1.67 m/s Assessment & Plan (02/24/2025 5:29 PM EDT): -Hep C neg Feb 2023 -Hep B: eligible as of October 2023 Lab Results Component Value Date AST 35 (H) 01/11/2025 ALT 33 (H) 01/11/2025 TOTPROTEIN 7.5 01/11/2025 ALB 4.4 01/11/2025 ALP 84 01/11/2025 TOTALBILIRUB 0.5 01/11/2025 - Encouraged to cont lifestyle interventions Assessment & Plan (11/18/2024 4:38 PM EDT): [...] 150 min a week. Assessment & Plan (02/24/2025 5:27 PM EDT): -Well controlled, cont current regimen Assessment & Plan (08/20/2024 12:35 PM EST): [...] b/p reading over 140/90). Prediabetes 08/12/2018 Overview (02/24/2025): Lab Results Component Value Date HGBA1C 5.9 01/11/2025 HGBA1C 5.9 11/12/2024 HGBA1C 6.0 09/24/2024 Cont lifestyle interventions Assessment & Plan (02/24/2025 5:26 PM EDT): A1c stable, encouraged to cont lifestyle interventions Assessment & Plan (02/26/2023 10:07 AM EDT): A1c 5.5% on 02/26/23, no longer in prediabetes range Menopausal flushing 07/27/2016 Nicotine dependence 07/27/2016 Assessment & Plan (02/24/2025 5:29 PM EDT): Smoking 4 cigg/day Max pack per day: 0.5 pack Age started smokin14 y/o Pack year history: <20 Plan: pt to decrease on her own. Follow up if interested in NRT and/or further resources Assessment & Plan (11/18/2024 4:45 PM EDT): [...] with cyclobenzaprine PRN, heat, and massage -Encouraged [facility] Ac[facility]uncture clinic, and to continue with pharm and non-pharm modalities of pain control -Previously following with [facility] Rheum -Labs: AYAD, RF, neg October 2023. Mild elevation of CRP and sed rate Assessment & Plan (02/12/2024 5:42 PM EDT): -Continues with oxycodone-APAP 5mg Q6H PRN -Continues with cyclobenzaprine PRN, heat, and massage -Encourage [facility] Ac[facility]uncture clinic -Previously following with [facility] Rheum -Labs: AYAD, RF, neg October 2023. Mild elevation of CRP and sed rate Assessment & Plan (10/17/2023 9:07 AM EDT): -Continues with oxycodone-APAP 5mg Q8H -Continues with cyclobenzaprine PRN, heat, and massage -Encourage [facility] Acupuncture clinic -Previously following with [facility] Rheum -Plan: trial Celebrex PRN instead of ibuprofen. Reviewed med safety and SE. Repeat lab work including AYAD given polyarthralgias and reported swelling of upper extremities Assessment & Plan (06/27/2023 3:41 PM EST): -Currently controlled with oxycodone-APAP 5mg Q8H -Continues with cyclobenzaprine PRN, heat, and massage -Encourage [facility] Acupuncture clinic and group medical visits -Previously following with [facility] Rheum Assessment & Plan (03/28/2023 12:16 PM EDT): -Currently controlled with oxycodone-APAP 5mg Q8H -Continues with cyclobenzaprine PRN, heat, and massage -Encourage [facility] Ac[facility] clinic -Upcoming appt with [facility] Rheum Assessment & Plan (02/26/2023 10:02 AM EDT): -Currently controlled with oxycodone-APAP 5mg. Increase from Q8H to Q6H PRN x 1 month as pt experiencing especially stressful time that is triggering fibro flares. Re-eval in 1 month -Continues with cyclobenzaprine PRN, heat, and massage -Encouraged [facility] Ac[facility]uncture clinic -Followed by [facility] Rheum Assessment & Plan (07/14/2022 11:58 AM EST): -Currently controlled with oxycodone 5mg Q8H PRN. Will switch back to oxycodone-acetaminophen to eliminate daily use of ibuprofen 800mg TID (following with PRINCIPAL STATISTICAL PROGRAMMER RN) -Continues with cyclobenzaprine PRN, heat, and massage -Encouraged [facility] Acupuncture clinic -Followed by [facility] Rheum Follow up in 3 months for chronic conditions, sooner as needed. Vitamin D deficiency 05/07/2016 Assessment & Plan (02/24/2025 5:28 PM EDT): - Plan to discontinue Vit D supplementation at this time. 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 pain of left knee (Primary Dx) 04/27/2025 Telephone [facility] [address] [place] [address] 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 RN 04/27/2025 Travel 04/20/2025 Travel 04/14/2025 Telephone [facility] [address] [place] [address] 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, JEB 04/14/2025 Refill [facility] [address] [place] [address] Maria Teresa Levin FNP Fibromyalgia 03/31/2025 Refill [facility] [address] [place] [address] Gale Rodney DO 03/18/2025 Refill [facility] [address] [place] [address] Maria Teresa Levin FNP 03/17/2025 Refill [facility] [address] [place] [address] Maria Teresa Levin FNP Fibromyalgia 02/28/2025 Refill [facility] [address] [place] [address] Maria Teresa Levin FNP Wheezing 02/28/2025 Refill [facility] [address] [place] [address] Maria Teresa Levin FNP Wheezing 02/24/2025 9:00 AM EDT Office Visit [facility] [address] [place] [address] Maria Teresa Levin FNP Essential hypertension (Primary Dx); Prediabetes; Fatty liver disease, nonalcoholic; Routine health maintenance; Acute midline thoracic back pain; Pure hypercholesterolemia; Vitamin D deficiency; Cigarette nicotine dependence without complication 02/24/2025 Travel 02/23/2025 Telephone [facility] [address] [place] [address] Maria Teresa Levin FNP Chart Prep 02/18/2025 8:40 AM EDT Office Visit [facility] [address] [place] [address] Gale Rodney DO Acute UTI (Primary Dx) 02/18/2025 Travel 02/17/2025 Refill [facility] [address] [place] [address] Maria Teresa Levin FNP 02/17/2025 Travel 02/16/2025 Refill [facility] [address] [place] [address] John Green MD Fibromyalgia from Last 3 Months Family History Medical [...] Passive Smoke Exposure: Current Smokeless Tobacco: Never Tobacco Cessation:Ready to Q [...] Sign Reading Time Taken Comments Blood Pressure 118/82 02/24/2025 8:51 AM EDT Pulse 80 02/24/2025 8:51 AM EDT Temperature 36.5 C (97.7 F) 02/24/2025 8:51 AM EDT Respiratory Rate 20 02/24/2025 8:51 AM EDT Oxygen Saturation 98% 02/24/2025 8:51 AM EDT Inhaled Oxygen Concentration - - Weight 90.6 kg (199 lb 12.8 oz) 02/24/2025 8:51 AM EDT Height 157.5 cm (5' 2 ) 02/24/2025 8:51 AM EDT Body Mass Index 36.54 02/24/2025 8:51 AM EDT Plan of Treatment Upcoming Encounters Date Type Department Care Team (Late st Contact Info) Description 05/05/2025 9:00 AM EDT Office Visit [facility] [address] [place] [address] Maria Teresa Levin FNP [address] [place] [address] 06/02/2025 9:30 AM EST Clinical Support [facility] [address] [place] [address] 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, RN [address] [place] [address] 06/24/2025 9:00 AM EST Office Visit [facility] [address] [place] [address] TarLinda kemp, OD [address] [place] [address] Health Maintenance Due Date Last Done Comments CT Colonography 1970 Colonoscopy 1970 FIT 1970 Sigmoidoscopy 1970 Mammogram 08/13/2024 08/13/2023, 02/0 12/2023, 09/12/2021, Additional history exists COVID-19 Vaccine ( - season) 2025 Influenza Vaccine (#1) 2025 Alcohol/Substance Use Screening 08/19/2025 08/19/2024 DTaP/Tdap/Td Vaccines (1 - Tdap) 08/20/2025 Postponed [...] 01/11/2026 025, 11/12/2024, 09/24/2024, Additional history exists FOBT 01/14/2026 01/14/2025, 01/09/2022 Tobacco Screening 02/24/2026 02/24/2025 Colorectal Cancer Screening 01/15/2028 FIT DNA/Cologuard 01/15/2028 [...] PM EDT Chronic pain of left knee CULTURE, URINE, ROUTINE Routine 02/18/2025 8:55 AM EDT Acute UTI POCT URINALYSIS DIPSTICK Routine 02/18/2025 8:53 AM EDT Acute UTI LAB COLOGUARD COLON CANCER SCREEN Routine 01/14/2025 7:05 AM EDT Screening for colon cancer HEMOGLOBIN A1C Routine 01/11/2025 10:15 AM EDT Prediabetes LIPID PANEL, STANDARD Routine 01/11/2025 10:15 AM EDT Pure hypercholesterolemia HEPATITIS C VIRAL RNA, QUANTITATIVE, REAL-TIME PCR Routine 09/24/2024 7:35 AM EDT Healthcare maintenance HIV 1/2 ANTIGEN/ANTIBODY, FOURTH GENERATION W/RFL Routine 09/24/2024 7:35 AM EDT Healthcare maintenance BI MAMMOGRAM DIAGNOSTIC TOMOSYNTHESIS BILATERAL Routine 08/13/2023 9:00 AM EST Breast pain in female from Last 3 Months or Most Recently Relevant to Health Maintenance Results * (ABNORMAL) POCT KEZIA-14 Urine Drug [...] PM EDT . Internal Pass Control Lot# [id number] Exp: 05-07-26 Maria Teresa Levin PEANUT FARMER POINT OF CARE TEST ENTER/EDIT ORDERABLES Final Result * Culture, Urine, Routine (02/18/2025 8:55 AM EDT) Urine Urine specimen obtained by clean catch procedure / Unknown 02/18/2025 8:55 AM EDT 02/18/2025 1:20 PM EDT Comment:UACC Narrative [facility] - 02/19/2025 9:47 AM EDT Urine Culture Report Result Urine Culture 50,000 to 100,000 cfu/ml Urine Culture Mixed bacterial frederic characteristic of Urine Culture urogenital contamination. Specimen Source: Urine clean catch Gale Rodney DO LAB MICROBIOLOGY - GENERAL O RDERABLES Final Result [facility] [address] [place] [address] [phone] * (ABNORMAL) POCT Urinalysis (02/18/2025 8:53 AM [...] Media Lot # [id number] Lot# Expiration Date [id number] Urine 02/18/2025 8:53 AM EDT Gale Rodney DO POINT OF CARE TEST ENTER/KEATON T ORDERABLES Final Result * Cologuard?? colon cancer screening (01/14/2025 7:05 AM EDT) Cologuard Result Negative Negative 01/23/20 25 1:00 PM EDT [facility] (CLIA #:[id number]) Comment: The Cologuard (TM) test was performed [...] Campa et al, N Engl J Med 2014;370(14):1286- 1297) The normal value (reference range) for this assay is negative. COLOGUARD RE-SCREENING RECOMMENDATION: Periodic colorectal cancer screening is an important part of preventive healthcare for asymptomatic individuals at average risk for colorectal cancer. Following a negative Cologuard result, the [place] [employer] and U.S. Multi-Society Task Force screening guidelines recommend a Cologuard re-screening interval of 3 years. References: [place] [employer] Guideline for Colorectal Cancer Screening: https://www.cancer.org/cancer/neumn-jgluxq-jjtyph/ysfuralhw-sslvvtcsa-rvmviul/ac s-rec ommendations.html.; Orville BAUER, Eleni THOMASON, Lo JamesK, Colorectal Cancer Screening: Recommendations for Physicians and Patients from the U.S. Multi-Society Task Force on Colorectal Cancer Screening , Am J Gastroenterology 2017; 112:4734-8309. TEST DESCRIPTION: Composite algorithmic analysis of stool [...] Campa et al, N Engl J Med 2014;370(14):6372-0482.) Cologuard may produce a false negative or false positive result (no colorectal cancer or precancerous polyp present at colonoscopy follow up). A negative Cologuard test result does not guarantee the absence of CRC or advanced adenoma (pre-cancer). The current Cologuard screening interval is every 3 years. ([place] [employer] and U.S. Multi-Society Task Force). Cologuard performance data in a 10,000 patient pivotal study using colonoscopy as the reference method can be accessed at the following location: www.TMS/results. Additional description of the Cologuard test process, warnings and precautions can be found at www.Tailored Republicrd.com. Stool specimen (specimen) 01/14/2025 7:05 AM EDT 01/15/2025 10:54 AM EDT Maria Teresa Levin [facility] MOLECULAR DIAGNOSTICS YESICA SAMAYOA Final Result [facility] (CLIA #:[id number]) [address] [place] [address], * Hemoglobin A1c (01/11/2025 10:15 AM EDT) Hemoglobin A1c 5.9 <6.0 % [facility] Comment:Hemoglobin A1C Refer ence Range Adults: 4.8 - 6.0 % Non diabetic: < 6.0 % Goal: < 7.0 %Additional Action Suggested: > 8.0 %Note: Hemoglobin A1c results are invalid for patients with abnormal amounts of HbF. Blood transfusions may impact the HbA1c concentration in the patient sample. Estimated Average Glucose 123 mg/dL [facility] Comment:eAG = Estimated ave rage glucose which is %A1C expressed asaverage glucose, using the formula of the K7X-WnhwhkeSpakikk Glucose study (ADAG), Diabetes Care, Vol.31,#8,Feb. 2007 Blood Venous blood specimen / Unknown 01/11/2025 10:15 AM EDT 01/11/2025 10:15 AM EDT us Maria Teresa Levin PEANUT FARMER LAB BLOOD ORDERABLES Final Res ult [facility] [address] [place] [phone] * Lipid Panel, Standard (01/11/2025 10:15 AM EDT) Triglycerides 130 <150 mg/dL [facility] Comment:Desirable Triglyceri de: less than 150 mg/dLBorderline High Triglyceride 150-199 mg/dLHigh Triglyceride: 200-499 mg/dLVery High Triglyceride: greater than or equal to 5OO mg/dL Cholesterol 107 <200 mg/dL [facility] Comment:Desirable Cholestero l: less than 200 mg/dLBorderline High Cholesterol: 200-239 mg/dLHigh Cholesterol: greater than 239 mg/dL LDL Cholesterol Calculated 40 <100 mg/dL [facility] Comment:Desirable LDL: less than 100 mg/dLNear Optimal/Above Optimal LDL: 110- 129 mg/dLBorderline High LDL: 130-159 mg/dLHigh LDL: 160-189 mg/dLVery High LDL: greater than or equal to 190 mg/dL HDL Cholesterol 41 >40 mg/dL [facility] Comment:Desirable HDL: great er than 40 mg/dL Note: This HDL assay may give artificially low results in patients with liver disease. Blood Venous blood specimen / Unknown 01/11/2025 10:15 AM EDT 01/11/2025 10:15 AM EDT Maria Teresa Levin [facility] BLOOD ORDERABLES Final Res ult Performing Organization Address [facility] Co de Phone Number [facility] [address] [place] [phone] * Hepatitis C Viral RNA, Quantitative, Real-Time PCR (09/24/2024 7:35 AM EDT) Pathologist [facility] Hepatitis C Viral Load <15 NOT DETECTED NOT DETECTED IU/mL [facility] HCV Log PCR <1.18 NOT DETECTED NOT DETECTED Log IU/mL [facility] Comment:For additional infor julieth, please refer tohttp://education.Lio Social/faq/ZGF80s2(This link is being provided for informational/educational purposes only.)THIS TEST WAS PERFORMED AT:[facility] / [facility] [place] [phone] BORRERO MD Blood 09/24/2024 7:35 AM EDT 09/24/2024 7:35 AM EDT Maria Teresa Levin [facility] BLOOD ORDERABLES Final Res ult Performing Organization Address [facility] de Phone Number [facility] [address] [place] [phone] * HIV-1/2 Antigen and Antibodies, Fourth Generation, with Reflexes (09/24/2024 7:35 AM EDT) Pathologist [facility] HIV AB/AG Nonreactive Nonreactive [facility] Comment:HIV-1 p24 Ag and/or HIV-1/HIV-2 Ab not detected.A test result that is nonreactive does not exclude thepossibility of exposure to or infection with HIV-1 and/orHIV-2. Nonreactive results in this assay for individualswith prior exposure to HIV-1 and/or HIV-2 may be due toantigen and antibody levels that are below the limit ofdetection of this assay.The [employer] HIV Ag/Ab Combo assay result andsupplemental assay results should be interpreted inconjunction with the patient's clinical presentation,history and other laboratory results. If the results areinconsistent with clinical evidence, additional testing issuggested to confirm the result. Blood Venous blood specimen / Unknown 09/24/2024 7:35 AM EDT 09/24/2024 7:35 AM EDT us Maria Teresa JEFFRIES LAB BLOOD ORDERABLES Final Res ult [facility] [address] [place] [phone] * BI Mammogram Diagnostic Tomosynthesis Bilateral (08/13/2023 9:00 AM EST) Anatomical Region Laterality Modality Breast Bilateral Mammography 08/13/2023 9:00 AM EST Narrative 08/13/2023 9:18 AM EST [facility] [address] [place] [address] Mammography Report Signed Patient: Edelmira Bartholomew MR#: [id number] : 1970 Acct:[id number] Age/Sex: 53 / F ADM Date: 08/13/23 Loc: HO.MAMMO Attending Dr: Maria Teresa JEFFRIES Ordering Physician: Maria Teresa Levin Results: 1Negat thelma Date of Service: 08/13/23 Follow Up: 1 Year From Orig ina Mammogram Procedure(s): MM tomosynthesis diagnostic BI Accession Number(s): [id number] cc: Maria Teresa Levin EXAMINATION: MM DIAGNOSTIC DIGITAL BREAST TOMOSYNTHESIS, BILATERAL [...] Iggy Shipley MD in OV> 08/13/23913 DD/ 9 TD/TT: Over Hauler Helper: Procedure Note Donotuseinterpreter, Image - 08/13/2023 [facility]'s [address] [place], [place] [address] Mammography Report Signed Patient: Edelmira Bartholomew YMR#: [id number] : 1970Acct:[id number] Age/Sex: 53 / FADM Date: 08/13/23 Loc: HO.MAMMO Attending Dr: Maria Teresa Levin PEANUT FARMER Ordering Physician: Maria Teresa LevinPResults: 1Negat thelma Date of Service: 08/13/23Follow Up: 1 Year From Orig inal Mammogram Procedure(s): MM tomosynthesis diagnostic BI Accession Number(s): [id number] cc: Maria Teresa Levin PEANUT FARMER EXAMINATION: MM DIAGNOSTIC DIGITAL BREAST TOMOSYNTHESIS, BILATERAL [...] Iggy Shipley MD in OV> 08/13/23913 DD/ 9 TD/TT: Over Hauler Helper: Maria Teresa Poonam [facility] IMG BI PROCEDURES Edited Resul t - Final from Last 3 Months or Most Recently Relevant to Health Maintenance Insurance [facility] C3 Care Teams Vendor Management Associate Relationship Specialty Start Date End Date Maria Teresa Levin FNP [address] [place] [address] PCP - General Family Medicine 03/06/22
--- OUTSIDE RECORDS SUMMARY | 2025-04-29 06:36 | XMS_ITS | Encounter Summary ---
Author Organization [employer] Address [address] [facility] [address] 7t [place] [address] Care Team Providers Care Specialist Icu Name Role Phone Maria Teresa Levin Primary Care Provider [phone] Reason for Visit * Reason Onset Date Comments Appointment Request 03/10/2024 Encounter Details Date Type Department Care Team ([facility] Contact Info) Description 03/10/[address] [facility] MEDICINE [address] [place] [address] Maria Teresa Levin FNP [address] [place] [address] Appointment Request Social History Tobacco Use Types [...] Description 05/05/2025 9:00 AM EDT Office Visit [facility] MEDICINE [address] [place] [address] Maria Teresa Levin FNP 505 [place] [address] 06/02/2025 9:30 AM EST Clinical Support [facility] CHC MED & PEDS 505 [place] [address] 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, RN 505 [place] [address] 06/24/2025 9:00 AM EST Office Visit [facility] OPTOMETRY [address] [place] [address] TarkaLinda, OD [address] [place] [address] documented as of this encounter Visit Diagnoses Not on filedocumented in this encounter Care Teams Specialist Icu Relationship Specialty Start Date End Date Maria Teresa Levin FNP 230 [place] [address] PCP - General Family Medicine 03/06/22 documented as of this encounter
--- OUTSIDE RECORDS SUMMARY | 2025-04-29 06:36 | XMS_ITS | Encounter Summary ---
Author Organization [employer] Address [address] 7t [place] [address] Care Team Providers Care Neck Band Operator Name Role Phone Maria Teresa Levin Primary Care Provider [phone] Reason for Visit * Reason Onset Date Comments Appointment Request 10/14/2024 Encounter Details Date Type Department Care Team ([facility] st Contact Info) Description 10/14/2024 Telephone [facility] [address] [place] [address] Maria Teresa Levin FNP [address] [place] [address] Appointment Request Social History Tobacco Use Types [...] 9:00 AM EDT [facility] [address] [place] [address] Maria Teresa Levin FNP 505 [place] [address] 06/02/2025 9:30 AM EST [facility] Support [facility]ED[facility] 505 [place] [address] 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, RN 505 [place] [address] 06/24/2025 9:00 AM EST [facility] Visit [facility] OPTOMETRY 267 [place] [address] Linda Del Cid, OD [address] [place] [address] documented as of this encounter Visit Diagnoses Not on filedocumented in this encounter Care Teams Neck Band Operator Relationship Specialty Start Date End Date Maria Teresa Levin FNP [address] [place] [address] PCP - General Family Medicine 03/06/22 documented as of this encounter
--- OUTSIDE RECORDS SUMMARY | 2025-04-29 06:36 | XMS_ITS | Encounter Summary ---
Author Organization [employer] Address 75 [facility] 7t [place] [address] Care Team Providers Care Codifier Name Role Phone Maria Teresa Levin MERVIN Primary Care Provider [phone] Encounter Details Date Type Department Care Team (Latest Contact Info) Description 04/28/2025 Travel Social History Tobacco Use Types Packs/Day [...] Description 05/05/2025 9:00 AM EDT Office Visit [facility] MEDICINE 230 [place] [address] Maria Teresa Levin FNP 505 [place] [address] 06/02/2025 9:30 AM EST Clinical Support [facility] CHC MED & PEDS 505 [place] [address] 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, RN 505 [place] [address] 06/24/2025 9:00 AM EST Office Visit [facility] OPTOMETRY 267 [place] [address] TarkaLinda, OD [address] [place] [address] documented as of this encounter Visit Diagnoses Not on filedocumented in this encounter Additional Health Concerns Assessment Noted Time PHQ-9 Depression Total Score: 2 11/19/19 25 9:10 AM EDT documented as of this encounter Care Teams Codifier Relationship Specialty Start Date End Date Maria Teresa Levin FNP [address] [place] [address] PCP - General Family Medicine 03/06/22 documented as of this encounter
--- OUTSIDE RECORDS SUMMARY | 2025-04-29 06:36 | XMS_ITS | Encounter Summary ---
Author Organization [employer] Address 75 [facility] 7t [place] [address] Care Team Providers Care Inter Com Installer Name Role Phone Maria Teresa Levin Primary Care Provider [phone] Reason for Visit * Reason Comments Med Refill Encounter Details Date Type Department Care Team (Late st Contact Info) Description 01/19/2025 Refill [facility] MEDICINE 230 [place] [address] Maria Teresa Levin FNP [address] [place] [address] Fibromyalgia Social History Tobacco Use Types Packs/Day [...] Upcoming Encounters Date Type Department Care Team ([facility] st Contact Info) Description 05/05/2025 9:00 AM EDT Office Visit [facility] MEDICINE 230 [place] [address] Maria Teresa Levin FNP 505 [place] [address] 06/02/2025 9:30 AM EST Clinical Support [facility] CHC MED & PEDS 505 [place] [address] 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, RN 505 [place] [address] 06/24/2025 9:00 AM EST Office Visit [facility] OPTOMETRY 267 [place] [address] Linda Del Cid, OD [address] [place] [address] documented as of this encounter Visit Diagnoses Diagnosis Fibromyalgia Unspecified myalgia and myositis documented in this encounter Additional Health Concerns Assessment Noted Time PHQ-9 Depression Total Score: 2 11/19/19 25 9:10 AM EDT documented as of this encounter Care Teams Inter Com Installer Relationship Specialty Start Date End Date Maria Teresa Levin FNP 230 [place] [address] PCP - General Family Medicine 03/06/22 documented as of this encounter
--- OUTSIDE RECORDS SUMMARY | 2025-04-29 06:36 | XMS_ITS | Encounter Summary ---
Author Organization [employer] Address 75 [facility] 7t [place] [address] Care Team Providers Care Closer On Name Role Phone Maria Teresa Levin Primary Care Provider [phone] Reason for Visit * Reason Onset Date Comments Med Refill 03/22/2024 Encounter Details Date Type Department Care Team ([facility] Contact Info) Description 03/22/2024 Refill [facility] CHC MED & PEDS 505 [place], [place] [phone] Maria Teresa Levin FNP 505 [place] [address] Long-term current use of opiate analgesic (Primary [...] Description 05/05/2025 9:00 AM EDT Office Visit [facility] MEDICINE [address] [place] [address] Maria Teresa Levin FNP 505 [place] [address] 06/02/2025 9:30 AM EST Clinical Support [facility] CHC MED & PEDS 505 [place] [address] 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, RN 505 [place] [address] 06/24/2025 9:00 AM EST Office Visit [facility] OPTOMETRY 267 [place] [address] Linda Del Cid OD 267 [place] [address] documented as of this encounter Visit Diagnoses Diagnosis Long-term current use of opiate analgesic- Primary Encounter for long-term (current) use of other medications Fibromyalgia Unspecified myalgia and myositis documented in this encounter Care Teams Closer On Relationship Specialty Start Date End Date Maria Teresa Levin FNP 230 [place] [address] PCP - General Family Medicine 03/06/22 documented as of this encounter
--- OUTSIDE RECORDS SUMMARY | 2025-04-29 06:36 | XMS_ITS | Encounter Summary ---
Author Organization [employer] Address [address] [facility] [address] 7t [place] [address] Care Team Providers Care Advertising Copywriter Name Role Phone Maria Teresa Levin MERVIN Primary Care Provider [phone] Encounter Details Date Type Department Care Team ([facility] Contact Info) Description 04/27/2025 Telephone [facility] CHC MED & PEDS 505 [place], [place] [phone] 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, RN 505 [place] [address] Social History Tobacco Use Types Packs/Day Years [...] encounter Miscellaneous Notes * Telephone Encounter - 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 RN - 04/27/2025 1:10 PM EDT Pt short 4 pills Percocet at [facility] today. States took a few extra pills d/t worsening R ankle pain. F/u with you 05/05/25. Next [facility] appointment in 1 mo, 06/02/25. documented in this encounter Plan of Treatment Upcoming Encounters Date Type Department Care Team ([facility] st Contact Info) Description 05/05/2025 9:00 AM EDT Office Visit [facility] MEDICINE [address] [place] [address] Maria Teresa Levin, VETERINARY PARASITOLOGIST 505 [place] [address] 06/02/2025 9:30 AM EST Clinical Support [facility] CHC MED & PEDS 505 [place] [address] 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, JEB 505 [place] [address] 06/24/2025 9:00 AM EST Office Visit [facility] OPTOMETRY 267 [place] [address] TarkaLinda, OD [address] [place] [address] documented as of this encounter Visit Diagnoses Not on filedocumented in this encounter Additional Health Concerns Assessment Noted Time PHQ-9 Depression Total Score: 2 11/19/19 25 9:10 AM EDT documented as of this encounter Care Teams Advertising Copywriter Relationship Specialty Start Date End Date Maria Teresa Levin FNP [address] [place] [address] PCP - General Family Medicine 03/06/22 documented as of this encounter
--- OUTSIDE RECORDS SUMMARY | 2025-04-29 06:36 | XMS_ITS | Encounter Summary ---
Author Organization [employer] Address [address] [facility] [address] 7t [place] [address] Care Team Providers Care Human Resources Temp Name Role Phone Maria Teresa Levin Primary Care Provider [phone] Reason for Visit * Reason Comments Med Refill Encounter Details Date Type Department Care Team (Late st Contact Info) Description 10/02/2024 Refill [facility] MEDICINE 230 [place] [address] Maria Teresa Levin FNP [address] [place], [place] [phone] Gastroesophageal reflux disease, unspecified whether esophagitis present [...] the past 12 months, has t he [employer], [employer], oil or water [employer] threatened to shut off services in your [...] Description 05/05/2025 9:00 AM EDT Office Visit [facility] MEDICINE [address] [place] [address] Maria Teresa Levin FNP 505 [place] [address] 06/02/2025 9:30 AM EST Clinical Support [facility] CHC MED & PEDS 505 [place] [address] 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, RN 505 [place] [address] 06/24/2025 9:00 AM EST Office Visit [facility] OPTOMETRY 267 [place] [address] Linda Del Cid, OD [address] [place] [address] documented as of this encounter Visit Diagnoses Diagnosis Gastroesophageal reflux disease, unspecified whether esophagitis present documented in this encounter Care Teams Human Resources Temp Relationship Specialty Start Date End Date Maria Teresa Levin FNP [address] [place] [address] PCP - General Family Medicine 03/06/22 documented as of this encounter
--- OUTSIDE RECORDS SUMMARY | 2025-04-29 06:36 | XMS_ITS | Encounter Summary ---
Author Organization [employer] Address 75 [facility] 7t [place] [address] Care Team Providers Care Scutcher Tender Name Role Phone Maria Teresa Levin MERVIN Primary Care Provider [phone] Encounter Details Date Type Department Care Team (Latest Contact Info) Description 04/27/2025 Travel Social History Tobacco Use Types Packs/Day [...] Description 05/05/2025 9:00 AM EDT Office Visit [facility] MEDICINE 230 [place] [address] Maria Teresa Levin FNP 505 [place] [address] 06/02/2025 9:30 AM EST Clinical Support [facility] CHC MED & PEDS 505 [place] [address] 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, RN 505 [place] [address] 06/24/2025 9:00 AM EST Office Visit [facility] OPTOMETRY 267 [place] [address] TarkaLinda, OD 267 [place] [address] documented as of this encounter Visit Diagnoses Not on filedocumented in this encounter Additional Health Concerns Assessment Noted Time PHQ-9 Depression Total Score: 2 11/19/19 25 9:10 AM EDT documented as of this encounter Care Teams Scutcher Tender Relationship Specialty Start Date End Date Maria Teresa Levin FNP [address] [place] [address] PCP - General Family Medicine 03/06/22 documented as of this encounter
--- OUTSIDE RECORDS SUMMARY | 2025-04-29 06:37 | XMS_ITS | Encounter Summary ---
Author Organization [employer] Address [address] [facility] [address] 7t [place] [address] Care Team Providers Care Dyslexia Teacher Name Role Phone Maria Teresa Levin Primary Care Provider [phone] Reason for Visit * Reason Onset Date Comments Med Refill 04/26/2023 Encounter Details Date Type Department Care Team ([facility] st Contact Info) Description 04/26/2023 Telephone [facility] MEDICINE 230 [place] [address] Maria Teresa Levin FNP [address] [place] [address] Med Refill Social History Tobacco Use Types [...] oxyCODONE-acetaminophen (Percocet) 5- 325 MG [id number] [place], [place] - [address] [place] [address] documented in this encounter Plan of Treatment Upcoming Encounters Date Type Department Care Team (Late st Contact Info) Description 05/05/2025 9:00 AM EDT Office Visit [facility] MEDICINE 230 [place] [address] Maria Teresa Levin FNP 505 [place] [address] 06/02/2025 9:30 AM EST Clinical Support [facility] CHC MED & PEDS 505 [place] [address] 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, JEB 505 [place] [address] 06/24/2025 9:00 AM EST Office Visit [facility] OPTOMETRY 267 [place] [address] Linda Del Cid, OD [address] [place] [address] documented as of this encounter Visit Diagnoses Not on filedocumented in this encounter Care Teams Dyslexia Teacher Relationship Specialty Start Date End Date Maria Teresa Levin FNP 230 [place] [address] PCP - General Family Medicine 03/06/22 documented as of this encounter
--- OUTSIDE RECORDS SUMMARY | 2025-04-29 06:37 | XMS_ITS | Encounter Summary ---
Author Organization [employer] Address [address] [facility] [address] 7t [place] [address] Care Team Providers Care Senior Accountant Name Role Phone Maria Teresa Levin MERVIN Primary Care Provider [phone] Reason for Visit * Reason Comments Med Refill Encounter Details Date Type Department Care Team ([facility] st Contact Info) Description 03/31/2025 Refill [facility] 230 [place] [address] Gale Rodney DO 230 [place] [address] Social History Tobacco Use Types Packs/Day Years [...] Upcoming Encounters Date Type Department Care Team ([facility] Contact Info) Description 05/05/2025 9:00 AM EDT Office Visit [facility] MEDICINE 230 [place] [address] Maria Teresa Levin FNP 505 [place] [address] 06/02/2025 9:30 AM EST Clinical Support [facility] CHC MED & PEDS 505 [place] [address] 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, RN 505 [place] [address] 06/24/2025 9:00 AM EST Office Visit [facility] OPTOMETRY 267 [place] [address] TarkaLinda, OD 267 [place] [address] documented as of this encounter Visit Diagnoses Not on filedocumented in this encounter Additional Health Concerns Assessment Noted Time PHQ-9 Depression Total Score: 2 11/19/19 25 9:10 AM EDT documented as of this encounter Care Teams Senior Accountant Relationship Specialty Start Date End Date Maria Teresa Levin FNP 230 [place] [address] PCP - General Family Medicine 03/06/22 documented as of this encounter
--- OUTSIDE RECORDS SUMMARY | 2025-04-29 06:37 | XMS_ITS | Encounter Summary ---
Author Organization [employer] Address 75 [facility] 7t [place] [address] Care Team Providers Care Seed Sorter Name Role Phone Maria Teresa Levin MERVIN Primary Care Provider [phone] Reason for Visit * Reason Onset Date Comments Med Refill 01/01/2024 Encounter Details Date Type Department Care Team ([facility] st Contact Info) Description 01/01/2024 Refill [facility] MEDICINE 230 [place] [address] John Green MD [address] [place] [address] Fibromyalgia Social History Tobacco Use Types Packs/Day Years Used Date Smoking Tobacco: Every Day Cigarettes Smokeless Tobacco: Never Alcohol Use Standard Drinks/Week Comments Never 0 (1 standard drink = 0.6 oz pur e alcohol) Housing Stability Answer Date Recorded What is your housing situation today? I have yola radha 10/16/[address] you li [...] the past 12 months, has t he [employer], [employer], oil or water company threatened to shut [...] Description 05/05/2025 9:00 AM EDT Office Visit [facility] MEDICINE 230 [place] [address] Maria Teresa Levin FNP 505 [place] [address] 06/02/2025 9:30 AM EST Clinical Support [facility] CHC MED & PEDS 505 [place] [address] 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, RN 505 [place] [address] 06/24/2025 9:00 AM EST Office Visit [facility] OPTOMETRY 267 [place] [address] Linda Del Cid, OD 267 [place] [address] documented as of this encounter Visit Diagnoses Diagnosis Fibromyalgia Unspecified myalgia and myositis documented in this encounter Care Teams Seed Sorter Relationship Specialty Start Date End Date Maria Teresa Levin FNP 230 [place] [address] PCP - General Family Medicine 03/06/22 documented as of this encounter
--- OUTSIDE RECORDS SUMMARY | 2025-04-29 06:37 | XMS_ITS | Encounter Summary ---
Author Organization [employer] Address [address] [facility] [address] 7t [place] [address] Care Team Providers Care Trimmer And Reinforcer Name Role Phone Maria Teresa Levin Primary Care Provider [phone] Reason for Visit * Reason Comments Med Refill Encounter Details Date Type Department Care Team (Late st Contact Info) Description 04/12/2024 Refill [facility] MEDICINE 230 [place] [address] Maria Teresa Levin FNP [address] [place], [place] [phone] Essential hypertension Social History Tobacco Use Types [...] Description 05/05/2025 9:00 AM EDT Office Visit [facility] MEDICINE 230 [place] [address] Maria Teresa Levin FNP 505 [place] [address] 06/02/2025 9:30 AM EST Clinical Support [facility] CHC MED & PEDS 505 [place] [address] 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, RN 505 [place] [address] 06/24/2025 9:00 AM EST Office Visit [facility] OPTOMETRY 267 [place] [address] Linda Del Cid, OD 267 [place] [address] documented as of this encounter Visit Diagnoses Diagnosis Essential hypertension Unspecified essential hypertension documented in this encounter Care Teams Trimmer And Reinforcer Relationship Specialty Start Date End Date Maria Teresa Levin FNP 230 [place] [address] PCP - General Family Medicine 03/06/22 documented as of this encounter
--- OUTSIDE RECORDS SUMMARY | 2025-04-29 06:37 | XMS_ITS | Encounter Summary ---
Author Organization [employer] Address [address] [facility] [address] 7t [place] [address] Care Team Providers Care Leather Goods I Assembler Name Role Phone Maria Teresa Levin Primary Care Provider [phone] Encounter Details Date Type Department Care Team ([facility] Contact Info) Description 05/20/[address] [facility] CHC MED & PEDS 505 [place] [address] Maria Teresa Levin FNP 505 [place] [address] Social History Tobacco Use Types Packs/Day Years [...] Description 05/05/2025 9:00 AM EDT Office Visit [facility] MEDICINE 230 [place] [address] Maria Teresa Levin FNP 505 [place] [address] 06/02/2025 9:30 AM EST Clinical Support [facility] CHC MED & PEDS 505 [place] [address] 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, RN 505 [place] [address] 06/24/2025 9:00 AM EST Office Visit [facility] OPTOMETRY [address] [place] [address] Linda Del Cid, OD 267 [place] [address] documented as of this encounter Visit Diagnoses Not on filedocumented in this encounter Care Teams Leather Goods I Assembler Relationship Specialty Start Date End Date Maria Teresa Levin FNP 230 [place] [address] PCP - General Family Medicine 03/06/22 documented as of this encounter
--- OUTSIDE RECORDS SUMMARY | 2025-04-29 06:37 | XMS_ITS | Encounter Summary ---
Author Organization [employer] Address [address] [place] [address] [place], [place] [address] Care Team Providers Care Commercial Pest Control Representative Name Role Phone Maria Teresa Levin Primary Care Provider [phone] Reason for Visit * Reason Onset Date Comments Med Refill 03/27/2023 Encounter Details Date Type Department Care Team ([facility] Contact Info) Description 03/27/2023 Refill [facility] MEDICINE 230 [place], [place] [phone] Maria Teresa Levin FNP 505 [place] [address] Fibromyalgia Social History Tobacco Use Types Packs/Day [...] Department Care Team (Late Contact Info) Description 05/05/2025 9:00 AM EDT Office Visit [facility] MEDICINE 230 [place], [place] [phone] Maria Teresa Levin FNP 505 [place], [place] [phone] 06/02/2025 9:30 AM EST Clinical Support [facility] CHC MED & PEDS 505 [place] [address] 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, RN 505 [place], [place] 06/24/2025 9:00 AM EST Office Visit [facility] OPTOMETRY [address] [place] [address] Linda Del Cid, OD [address] [place] [address] documented as of this encounter Visit Diagnoses Diagnosis Fibromyalgia Unspecified myalgia and myositis documented in this encounter Care Teams Commercial Pest Control Representative Relationship Specialty Start Date End Date Maria Teresa Levin FNP [address] [place] [address] PCP - General Family Medicine 03/06/22 documented as of this encounter
--- OUTSIDE RECORDS SUMMARY | 2025-04-29 06:37 | XMS_ITS | Encounter Summary ---
Author Organization [employer] Address [address] 7t [place] [address] Care Team Providers Care Inside Sales Engineer Name Role Phone Maria Teresa Levin Primary Care Provider [phone] Encounter Details Date Type Department Care Team ([facility] st Contact Info) Description 04/30/2023 Orders Only [facility] MEDICINE [address] [place] [address] Maria Teresa Levin FNP [address] [place], [place] [id number] Social History Tobacco Use Types Packs/Day Years [...] Description 05/05/2025 9:00 AM EDT Office Visit [facility] MEDICINE [address] [place] [address] Maria Teresa Levin FNP 505 [place] [address] 06/02/2025 9:30 AM EST Clinical Support [facility] CHC MED & PEDS 505 [place] [address] 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, RN 505 [place] [address] 06/24/2025 9:00 AM EST Office Visit [facility] OPTOMETRY [address] [place] [address] Linda Del Cid, OD [address] [place] [address] documented as of this encounter Visit Diagnoses Not on filedocumented in this encounter Care Teams Inside Sales Engineer Relationship Specialty Start Date End Date Maria Teresa Levin FNP [address] [place] [address] PCP - General Family Medicine 03/06/22 documented as of this encounter
--- OUTSIDE RECORDS SUMMARY | 2025-04-29 06:37 | XMS_ITS | Encounter Summary ---
Author Organization [employer] Address [address] [facility] 7t [place] [address] Care Team Providers Care Children'S Service Worker Name Role Phone Maria Teresa Levin Primary Care Provider [phone] Encounter Details Date Type Department Care Team ([facility] Contact Info) Description 11/11/2023 Orders Only [facility] CHC MED & PEDS [address] [place], [place] [phone] Maria Teresa Levin FNP 505 [place] [address] Social History Tobacco Use Types Packs/Day Years [...] Description 05/05/2025 9:00 AM EDT Office Visit [facility] MEDICINE 230 [place] [address] Maria Teresa Levin FNP 505 [place] [address] 06/02/2025 9:30 AM EST Clinical Support [facility] CHC MED & PEDS [address] [place] [address] 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, JEB 505 [place] [address] 06/24/2025 9:00 AM EST Office Visit [facility] OPTOMETRY [address] [place] [address] Linda Del Cid, OD [address] [place] [address] documented as of this encounter Visit Diagnoses Not on filedocumented in this encounter Care Teams Children'S Service Worker Relationship Specialty Start Date End Date Maria Teresa Levin FNP 230 [place] [address] PCP - General Family Medicine 03/06/22 documented as of this encounter
--- OUTSIDE RECORDS SUMMARY | 2025-04-29 06:37 | XMS_ITS | Encounter Summary ---
Author Organization [employer] Address [address] 7t [place] [address] Care Team Providers Care Mallet Cutter Name Role Phone Maria Teresa Levin Primary Care Provider [phone] Reason for Visit * Reason Comments Med Refill Encounter Details Date Type Department Care Team (Late st Contact Info) Description 12/10/2024 Refill [facility] MEDICINE 230 [place] [address] Maria Teresa Levin FNP [address] [place] [address] Wheezing Social History Tobacco Use Types Packs/Day Years [...] Upcoming Encounters Date Type Department Care Team ([facility] Contact Info) Description 05/05/2025 9:00 AM EDT Office Visit [facility] MEDICINE 230 [place] [address] Maria Teresa Levin FNP 505 [place] [address] 06/02/2025 9:30 AM EST Clinical Support [facility] CHC MED & PEDS 505 [place] [address] 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, RN 505 [place] [address] 06/24/2025 9:00 AM EST Office Visit [facility] OPTOMETRY 267 [place] [address] Linda Del Cid, OD [address] [place] [address] documented as of this encounter Visit Diagnoses Diagnosis Wheezing documented in this encounter Additional Health Concerns Assessment Noted Time PHQ-9 Depression Total Score: 2 11/19/19 25 9:10 AM EDT documented as of this encounter Care Teams Mallet Cutter Relationship Specialty Start Date End Date Maria Teresa Levin FNP 230 [place] [address] PCP - General Family Medicine 03/06/22 documented as of this encounter
--- OUTSIDE RECORDS SUMMARY | 2025-04-29 06:37 | XMS_ITS | Encounter Summary ---
Author Organization [employer] Address [address] 7t [place] [address] Care Team Providers Care Chicken Picker Name Role Phone Maria Teresa Levin Primary Care Provider [phone] Reason for Visit * Reason Onset Date Comments Med Refill 04/22/2023 Encounter Details Date Type Department Care Team ([facility] st Contact Info) Description 04/22/2023 Refill [facility] MEDICINE 230 [place] [address] Maria Teresa Levin FNP [address] [place] [address] Fibromyalgia Social History Tobacco Use Types Packs/Day [...] Description 05/05/2025 9:00 AM EDT Office Visit [facility] MEDICINE 230 [place] [address] Maria Teresa Levin FNP 505 [place] [address] 06/02/2025 9:30 AM EST Clinical Support [facility] CHC MED & PEDS 505 [place] [address] 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, RN 505 [place] [address] 06/24/2025 9:00 AM EST Office Visit [facility] OPTOMETRY [address] [place] [address] Linda Del Cid, OD 267 [place] [address] documented as of this encounter Visit Diagnoses Diagnosis Fibromyalgia Unspecified myalgia and myositis documented in this encounter Care Teams Chicken Picker Relationship Specialty Start Date End Date Maria Teresa Levin FNP 230 [place] [address] PCP - General Family Medicine 03/06/22 documented as of this encounter
--- OUTSIDE RECORDS SUMMARY | 2025-04-29 06:37 | XMS_ITS ---
Author Organization [employer] [facility] Address [address] [place] [address] 7 [place] [address] Care Team Providers Care Cath Lab Manager Name Role Phone Maria Teresa Levin Primary Care Provider [phone] CASTING MACHINE CONTROL BOARD OPERATOR Status:Enrolled (Active) Start date:04/10/2022 Enrollment date:04/10/2022 Current support & services provided:Tier 4 (CASTING MACHINE CONTROL BOARD OPERATOR) Case Team Name Relationship Phone Alla Dunn RN(Responsible Staff) Registered Suad cerrato Continued Care and Services Coordination
--- OUTSIDE RECORDS SUMMARY | 2025-04-29 06:37 | XMS_ITS | Encounter Summary ---
Author Organization [employer] Address [address] 7t [place] [address] Care Team Providers Care 911 Dispatcher Name Role Phone Maria Teresa Levin Primary Care Provider Reason for Visit * Reason Onset Date Comments Reschedule 07/19/2023 Encounter Details Date Type Department Care Team ([facility] st Contact Info) Description 07/19/2023 Telephone [facility] MEDICINE 230 [place] [address] Maria Teresa Levin FNP [address] [place] [address] Reschedule Social History Tobacco Use Types Packs/Day Years [...] encounter Miscellaneous Notes * Telephone Encounter - Jana Thao - 07/19/2023 8:57 AM EST Tc from pt requesting r/s WATCH TRAIN ASSEMBLER appt, please contact pt at [phone]. documented in this encounter Plan of Treatment Upcoming Encounters Date Type Department Care Team (Late st Contact Info) Description 05/05/2025 9:00 AM EDT Office Visit [facility] MEDICINE 230 [place] [address] Maria Teresa Levin FNP 505 [place] [address] 06/02/2025 9:30 AM EST Clinical Support [facility] CHC MED & PEDS 505 [place] [address] 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, RN 505 [place] [address] 06/24/2025 9:00 AM EST Office Visit [facility] OPTOMETRY 267 [place] [address] Linda Del Cid, OD 267 [place] [address] documented as of this encounter Visit Diagnoses Not on filedocumented in this encounter Care Teams 911 Dispatcher Relationship Specialty Start Date End Date Maria Teresa Levin FNP 230 [place] [address] PCP - General Family Medicine 03/06/22 documented as of this encounter
[2025-04-29 08:14] LABS: Alanine Aminotransferase 34 U/L (0-31); Albumin Level 4.4 g/dL (3.5-5.0); Alkaline Phosphatase 84 U/L (39-117); Aspartate Amino Transferase 36 U/L (5-31); Cholesterol 105 mg/dL (<200); HDL Cholesterol 40 mg/dL (>40); Total Protein 7.5 g/dL (6.5-8.0); Triglycerides 98 mg/dL (<150)
== END 2025-04-29 06:35 | disposition home or self-care (01) ==
LOC: HO.XRAY 06:34
PROVIDERS: PCP Registered Nurse; Visit Provider Registered Nurse
DX: Z00.00 Encounter for general adult medical examination without abnormal findings (principal); M54.6 Pain in thoracic spine; K76.0 Fatty (change of) liver, not elsewhere classified; R73.03 Prediabetes
CPT/HCPCS: 36415; 72070; 80061; 80076; 82306; 83036

== ENCOUNTER → 2025-04-29 06:42 | Outpatient (BNV) | payer MEDICAID, SELFPAY | PROVIDERS: PCP Registered Nurse; Visit Provider Radiology Diagnostic Radiology | DX: M41.34 Thoracogenic scoliosis, thoracic region (principal) | CPT/HCPCS: 72070 ==

== ENCOUNTER 2025-06-24 07:59 | Outpatient (REF) | payer MEDICAID, SELFPAY ==
--- OUTSIDE RECORDS SUMMARY | 2025-06-24 08:04 | XMS_ITS | Encounter Summary ---
Author Organization [employer] Address [address] 7t [place] [address] Care Team Providers Care Clinical Physician Assistant Name Role Phone Maria Teresa Levin Primary Care Provider [phone] Reason for Visit * Reason Comments Med Refill Encounter Details Date Type Department Care Team (Late st Contact Info) Description 01/19/2025 Refill [facility] MEDICINE 230 [place] [address] Maria Teresa Levin FNP [address] [place] [address] Fibromyalgia Social History Tobacco Use Types Packs/Day [...] Upcoming Encounters Date Type Department Care Team ([facility] st Contact Info) Description 06/24/2025 9:00 AM EST Office Visit [facility] OPTOMETRY 267 [place] [address] Linda Del Cid, OD 267 [place] [address] 08/04/2025 11:15 AM EST Office Visit [facility] MEDICINE 230 [place] [address] Maria Teresa Levin FNP 505 [place] [address] 09/13/2025 9:30 AM EDT Telemedicine [facility] CHC MED & PEDS 505 [place] [address] 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, JEB 505 [place] [address] documented as of this encounter Visit Diagnoses Diagnosis Fibromyalgia Unspecified myalgia and myositis documented in this encounter Additional Health Concerns Assessment Noted Time PHQ-9 Depression Total Score: 2 11/19/19 25 9:10 AM EDT documented as of this encounter Care Teams Clinical Physician Assistant Relationship Specialty Start Date End Date Maria Teresa Levin FNP 230 [place] [address] PCP - General Family Medicine 03/06/22 documented as of this encounter
--- OUTSIDE RECORDS SUMMARY | 2025-06-24 08:04 | XMS_ITS | Encounter Summary ---
Author Organization [employer] Address [address] 7t [place] [address] Care Team Providers Care Network Systems Integrator Name Role Phone Maria Teresa Levin Primary Care Provider Reason for Visit * Reason Onset Date Comments Appointment Request 10/14/2024 Encounter Details Date Type Department Care Team ([facility] st Contact Info) Description 10/14/2024 Telephone [facility] MEDICINE 230 [place] [address] Maria Teresa Levin FNP [address] [place] [address] Appointment Request Social History Tobacco Use Types [...] Care Team (Late st Contact Info) Description 06/24/2025 9:00 AM EST Office Visit [facility] OPTOMETRY 267 [place] [address] Linda Del Cid, OD 267 [place] [address] 08/04/2025 11:15 AM EST Office Visit [facility] MEDICINE 230 [place] [address] Maria Teresa Levin FNP 505 [place] [address] 09/13/2025 9:30 AM EDT Telemedicine [facility] CHC MED & PEDS 505 [place] [address] 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, JEB [address] [place] [address] documented as of this encounter Visit Diagnoses Not on filedocumented in this encounter Care Teams Network Systems Integrator Relationship Specialty Start Date End Date Maria Teresa Levin FNP 230 [place] [address] PCP - General Family Medicine 03/06/22 documented as of this encounter
--- OUTSIDE RECORDS SUMMARY | 2025-06-24 08:04 | XMS_ITS | Encounter Summary ---
Author Organization [employer] Address [address] 7t [place] [address] Care Team Providers Care Cell Coverer Name Role Phone Maria Teresa Levin Primary Care Provider [phone] Reason for Visit * Reason Comments Med Refill Encounter Details Date Type Department Care Team (Late st Contact Info) Description 12/10/2024 Refill [facility] MEDICINE 230 [place] [address] Maria Teresa Levin FNP [address] [place] [address] Wheezing Social History Tobacco Use Types Packs/Day [...] Upcoming Encounters Date Type Department Care Team ([facility] st Contact Info) Description 06/24/2025 9:00 AM EST Office Visit [facility] OPTOMETRY [address] [place] [address] Linda Del Cid, OD 267 [place] [address] 08/04/2025 11:15 AM EST Office Visit [facility] MEDICINE 230 [place] [address] Maria Teresa Levin FNP 505 [place] [address] 09/13/2025 9:30 AM EDT Telemedicine [facility] CHC MED & PEDS 505 [place] [address] 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, JEB 505 [place] [address] documented as of this encounter Visit Diagnoses Diagnosis Wheezing documented in this encounter Additional Health Concerns Assessment Noted Time PHQ-9 Depression Total Score: 2 11/19/19 25 9:10 AM EDT documented as of this encounter Care Teams Cell Coverer Relationship Specialty Start Date End Date Maria Teresa Levin FNP 230 [place] [address] PCP - General Family Medicine 03/06/22 documented as of this encounter
--- OUTSIDE RECORDS SUMMARY | 2025-06-24 08:04 | XMS_ITS | Encounter Summary ---
Author Organization [employer] Address [address] 7t [place] [address] Care Team Providers Care Sculpture Instructor Name Role Phone Maria Teresa Levin Primary Care Provider [phone] Reason for Visit * Reason Onset Date Comments Med Refill 04/22/2023 Encounter Details Date Type Department Care Team ([facility] st Contact Info) Description 04/22/2023 Refill [facility] MEDICINE 230 [place] [address] Maria Teresa Levin FNP [address] [place] [address] Fibromyalgia Social History Tobacco Use Types Packs/Day [...] Description 06/24/2025 9:00 AM EST Office Visit [facility] OPTOMETRY [address] [place] [address] Linda Del Cid, OD [address] [place] [address] 08/04/2025 11:15 AM EST Office Visit [facility] MEDICINE 230 [place] [address] Maria Teresa Levin FNP 505 [place] [address] 09/13/2025 9:30 AM EDT Telemedicine [facility] CHC MED & PEDS 505 [place] [address] 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, RN 505 [place] [address] documented as of this encounter Visit Diagnoses Diagnosis Fibromyalgia Unspecified myalgia and myositis documented in this encounter Care Teams Sculpture Instructor Relationship Specialty Start Date End Date Maria Teresa Levin FNP 230 [place] [address] PCP - General Family Medicine 03/06/22 documented as of this encounter
--- OUTSIDE RECORDS SUMMARY | 2025-06-24 08:04 | XMS_ITS | Encounter Summary ---
Author Organization [employer] Address [address] 7t [place] [address] Care Team Providers Care Car Wiper Name Role Phone Maria Teresa Levin Primary Care Provider [phone] Encounter Details Date Type Department Care Team ([facility] st Contact Info) Description 04/30/2023 Orders Only [facility] MEDICINE 230 [place] [address] Maria Teresa Levin FNP [address] [place], [place] [phone] Social History Tobacco Use Types Packs/Day Years Used Date Smoking Tobacco: Every Day Cigarettes Smokeless Tobacco: Never Alcohol Use Standard Drinks/Week Comments Never 0 (1 standard drink = 0.6 oz pur e alcohol) Housing Stability Answer Date Recorded What is your housing situation today? I have yloa garcia 04/22/[address] you [...] Description 06/24/2025 9:00 AM EST Office Visit [facility] OPTOMETRY 267 [place] [address] Linda Del Cid, OD 267 [place] [address] 08/04/2025 11:15 AM EST Office Visit [facility] MEDICINE 230 [place] [address] Maria Teresa Levin FNP 505 [place] [address] 09/13/2025 9:30 AM EDT Telemedicine [facility] CHC MED & PEDS 505 [place] [address] 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, RN 505 [place] [address] documented as of this encounter Visit Diagnoses Not on filedocumented in this encounter Care Teams Car Wiper Relationship Specialty Start Date End Date Maria Teresa Levin FNP 230 [place] [address] PCP - General Family Medicine 03/06/22 documented as of this encounter
--- OUTSIDE RECORDS SUMMARY | 2025-06-24 08:04 | XMS_ITS | Encounter Summary ---
Author Organization [employer] Address [address] [facility] 7t [place] [address] Care Team Providers Care Planning Manager Name Role Phone Maria Teresa Levin MERVIN Primary Care Provider [phone] Reason for Visit * Reason Onset Date Comments Med Refill 01/01/2024 Encounter Details Date Type Department Care Team ([facility] st Contact Info) Description 01/01/[address] [facility] MEDICINE 230 [place] [address] John Green MD [address] [place] [address] Fibromyalgia Social History Tobacco Use Types Packs/Day [...] the past 12 months, has t he [employer], [employer], oil or water company threatened to shut [...] EST Office Visit [facility] OPTOMETRY [address] [place] [address] Linda Del Cid, OD 267 [place] [address] 08/04/2025 11:15 AM EST Office Visit [facility] MEDICINE 230 [place] [address] Maria Teresa Levin FNP 505 [place] [address] 09/13/2025 9:30 AM EDT Telemedicine [facility] CHC MED & PEDS 505 [place] [address] 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, RN 505 [place] [address] documented as of this encounter Visit Diagnoses Diagnosis Fibromyalgia Unspecified myalgia and myositis documented in this encounter Care Teams Planning Manager Relationship Specialty Start Date End Date Maria Teresa Levin FNP 230 [place] [address] PCP - General Family Medicine 03/06/22 documented as of this encounter
--- OUTSIDE RECORDS SUMMARY | 2025-06-24 08:04 | XMS_ITS | Encounter Summary ---
Author Organization [employer] Address [address] 7t [place] [address] Care Team Providers Care Cook Railroad Name Role Phone Maria Teresa Levin Primary Care Provider [phone] Reason for Visit * Reason Onset Date Comments Appointment Request 05/31/2025 Encounter Details Date Type Department Care Team ([facility] Contact Info) Description 05/31/2025 Telephone [facility] MEDICINE 230 [place] [address] Maria Teresa Levin FNP [address] [place] [address] Appointment Request Social History Tobacco Use Types [...] encounter Miscellaneous Notes * Telephone Encounter - Abigail Porter - 05/31/2025 9:03 AM EST TC from pt calling to R/S appointment from 06/02 CORPORATE TRAVEL COORDINATOR. PCP Jyotsna Levin documented in this encounter Plan of Treatment Upcoming Encounters Date Type Department Care Team (Late st Contact Info) Description 06/24/2025 9:00 AM EST Office Visit [facility] OPTOMETRY [address] [place] [address] TarLinda kemp, OD [address] [place] [address] 08/04/2025 11:15 AM EST Office Visit [facility] MEDICINE [address] [place] [address] Maria Teresa Levin FNP 505 [place] [address] 09/13/2025 9:30 AM EDT Telemedicine [facility] CHC MED & PEDS 505 [place] [address] 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, RN 505 [place] [address] documented as of this encounter Visit Diagnoses Not on filedocumented in this encounter Additional Health Concerns Assessment Noted Time PHQ-9 Depression Total Score: 2 11/19/19 25 9:10 AM EDT documented as of this encounter Care Teams Cook Railroad Relationship Specialty Start Date End Date aMria Teresa Levin FNP 230 [place] [address] PCP - General Family Medicine 03/06/22 documented as of this encounter
--- OUTSIDE RECORDS SUMMARY | 2025-06-24 08:04 | XMS_ITS | Encounter Summary ---
Author Organization [employer] Address [address] 7t [place] [address] Care Team Providers Care Burr Picker Name Role Phone Maria Teresa Levin Primary Care Provider [phone] Reason for Visit * Reason Comments Med Refill Encounter Details Date Type Department Care Team (Late st Contact Info) Description 10/02/2024 Refill [facility] MEDICINE 230 [place] [address] Maria Teresa Levin FNP [address] [place], [place] [id number] Gastroesophageal reflux disease, unspecified whether esophagitis present [...] the past 12 months, has t he [employer], oil or water [employer] threatened to shut off services in your [...] Description 06/24/2025 9:00 AM EST Office Visit [facility] OPTOMETRY [address] [place] [address] Linda Del Cid, OD [address] [place] [address] 08/04/2025 11:15 AM EST Office Visit [facility] MEDICINE [address] [place] [address] Maria Teresa Levin FNP 505 [place] [address] 09/13/2025 9:30 AM EDT Telemedicine [facility] CHC MED & PEDS 505 [place] [address] 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, JEB 505 [place] [address] documented as of this encounter Visit Diagnoses Diagnosis Gastroesophageal reflux disease, unspecified whether esophagitis present documented in this encounter Care Teams Burr Picker Relationship Specialty Start Date End Date Maria Teresa Levin FNP 230 [place] [address] PCP - General Family Medicine 03/06/22 documented as of this encounter
--- OUTSIDE RECORDS SUMMARY | 2025-06-24 08:04 | XMS_ITS | Encounter Summary ---
Author Organization [employer] Address [address] [place] [address] Care Team Providers Care Property And Supply Officer Name Role Phone Maria Teresa Levin Primary Care Provider [phone] Encounter Details Date Type Department Care Team ([facility] Contact Info) Description 05/20/2023 Orders Only [facility] CHC MED & PEDS [address] [place], [place] [phone] Maria Teresa Levin FNP 505 [place] [address] Social History Tobacco Use Types Packs/Day Years [...] 9:00 AM EST Office Visit [facility] OPTOMETRY [address] [place] [address] Lidna Del Cid, OD [address] [place] [address] 08/04/2025 11:15 AM EST Office Visit [facility] MEDICINE 230 [place] [address] Maria Teresa Levin FNP 505 [place] [address] 09/13/2025 9:30 AM EDT Telemedicine [facility] CHC MED & PEDS [address] [place] [address] 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, JEB 505 [place] [address] documented as of this encounter Visit Diagnoses Not on filedocumented in this encounter Care Teams Property And Supply Officer Relationship Specialty Start Date End Date Maria Teresa Levin FNP [address] [place] [address] PCP - General Family Medicine 03/06/22 documented as of this encounter
--- OUTSIDE RECORDS SUMMARY | 2025-06-24 08:04 | XMS_ITS | Encounter Summary ---
Author Organization [employer] Address [address] [place] [address] Care Team Providers Care Industrial Equipment Wirer Name Role Phone Maria Teresa Levin MERVIN Primary Care Provider [phone] Reason for Visit * Reason Comments Med Refill Encounter Details Date Type Department Care Team ([facility] st Contact Info) Description 03/31/2025 Refill [facility] WALK-IN CENTER [address] [place] [address] Gale Rodney DO [address] [place] [address] Social History Tobacco Use Types Packs/Day Years [...] Upcoming Encounters Date Type Department Care Team ([facility] st Contact Info) Description 06/24/2025 9:00 AM EST Office Visit [facility] OPTOMETRY [address] [place] [address] Linda Del Cid, OD [address] [place] [address] 08/04/2025 11:15 AM EST Office Visit [facility] MEDICINE [address] [place] [address] Maria Teresa Levin FNP [address] [place] [address] 09/13/2025 9:30 AM EDT Telemedicine [facility] CHC MED & PEDS 505 [place] [address] 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, RN [address] [place] [address] documented as of this encounter Visit Diagnoses Not on filedocumented in this encounter Additional Health Concerns Assessment Noted Time PHQ-9 Depression Total Score: 2 11/19/19 25 9:10 AM EDT documented as of this encounter Care Teams Industrial Equipment Wirer Relationship Specialty Start Date End Date Maria Teresa Levin FNP [address] [place] [address] PCP - General Family Medicine 03/06/22 documented as of this encounter
--- OUTSIDE RECORDS SUMMARY | 2025-06-24 08:04 | XMS_ITS | Encounter Summary ---
Author Organization [employer] Address [address] 7[address] [place] [address] Care Team Providers Care Cinnamon Grinder Name Role Phone Maria Teresa Levin Primary Care Provider [phone] Reason for Visit * Reason Onset Date Comments Med Refill 04/26/2023 Encounter Details Date Type Department Care Team ([facility] st Contact Info) Description 04/26/2023 Telephone [facility] [address] [place] [address] Maria Teresa Levin FNP [address] [place] [address] Med Refill Social History Tobacco Use Types [...] 5- 325 MG [id number] [place], [place] - [address] [place] [address] documented in this encounter Plan of Treatment Upcoming Encounters Date Type Department Care Team (Late st Contact Info) Description 06/24/2025 9:00 AM EST Office Visit [facility] OPTOMETRY [address] [place] [address] Linda Del Cid, OD [address] [place] [address] 08/04/2025 11:15 AM EST Office Visit [facility] [address] [place] [address] Maria Teresa Levin FNP 505 [place] [address] 09/13/2025 9:30 AM EDT Telemedicine [facility] PEDS [address] [place] [address] 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, JEB 505 [place] [address] documented as of this encounter Visit Diagnoses Not on filedocumented in this encounter Care Teams Cinnamon Grinder Relationship Specialty Start Date End Date Maria Teresa Levin FNP [address] [place] [address] PCP - General Family Medicine 03/06/22 documented as of this encounter
--- OUTSIDE RECORDS SUMMARY | 2025-06-24 08:04 | XMS_ITS | Encounter Summary ---
Author Organization [employer] Address [address] [place] [address] 7 [place] [address] Care Team Providers Care Insurance Follow Up Rep Name Role Phone Maria Teresa Levin Primary Care Provider [phone] Reason for Visit * Reason Onset Date Comments Med Refill 03/27/2023 Encounter Details Date Type Department Care Team ([facility] Contact Info) Description 03/27/2023 Refill [facility] MEDICINE [address] [place] [address] Maria Teresa Levin FNP [address] [place] [address] Fibromyalgia Social History Tobacco Use Types Packs/Day [...] Department Care Team (Late Contact Info) Description 06/24/2025 9:00 AM EST Office Visit [facility] OPTOMETRY [address] [place] [address] TarLinda kemp, OD [address] [place] [address] 08/04/2025 11:15 AM EST Office Visit [facility] MEDICINE [address] [place] [address] Maria Teresa Levin FNP [address] [place] [address] 09/13/2025 9:30 AM EDT Telemedicine [facility] CHC MED & PEDS 505 [place] [address] 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, JEB 505 [place] [address] documented as of this encounter Visit Diagnoses Diagnosis Fibromyalgia Unspecified myalgia and myositis documented in this encounter Care Teams Insurance Follow Up Rep Relationship Specialty Start Date End Date Maria Teresa Levin FNP [address] [place] [address] PCP - General Family Medicine 03/06/22 documented as of this encounter
--- OUTSIDE RECORDS SUMMARY | 2025-06-24 08:04 | XMS_ITS ---
Author Organization [employer] [facility] Address [address] [place] [address] 7 [place] [address] Care Team Providers Care Registered Phlebotomist Part Time Name Role Phone Maria Teresa Levin Primary Care Provider [phone] ICE CREAM FREEZER ASSISTANT Status:Enrolled (Active) Start date:04/10/2022 Enrollment date:04/10/2022 Current support & services provided:Tier 4 (ICE CREAM FREEZER ASSISTANT) Case Team Name Relationship Phone Alla Dunn RN(Responsible Staff) Registered Suad cerrato Continued Care and Services Coordination
--- OUTSIDE RECORDS SUMMARY | 2025-06-24 08:04 | XMS_ITS | Encounter Summary ---
Author Organization [employer] Address [address] [place] [address] Care Team Providers Care Apprentice Photographer Name Role Phone Maria Teresa Levin Primary Care Provider [phone] Reason for Visit * Reason Onset Date Comments Appointment Request 03/10/2024 Encounter Details Date Type Department Care Team ([facility] Contact Info) Description 03/10/2024 Telephone [facility] MEDICINE [address] [place] [address] Maria Teresa Levin FNP [address] [place] [address] Appointment Request Social History Tobacco Use Types [...] Description 06/24/2025 9:00 AM EST Office Visit [facility] OPTOMETRY [address] [place] [address] Linda Del Cid, OD [address] [place] [address] 08/04/2025 11:15 AM EST Office Visit [facility] MEDICINE [address] [place] [address] Maria Teresa Levin FNP [address] [place] [address] 09/13/2025 9:30 AM EDT Telemedicine [facility] CHC MED & PEDS [address] [place] [address] 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, RN [address] [place] [address] documented as of this encounter Visit Diagnoses Not on filedocumented in this encounter Care Teams Apprentice Photographer Relationship Specialty Start Date End Date Maria Teresa Levin FNP [address] [place] [address] PCP - General Family Medicine 03/06/22 documented as of this encounter
--- OUTSIDE RECORDS SUMMARY | 2025-06-24 08:04 | XMS_ITS | Encounter Summary ---
Author Organization [employer] Address [address] [place] [address] Care Team Providers Care Tariff Expert Name Role Phone Maria Teresa Levin Primary Care Provider [phone] Reason for Visit * Reason Onset Date Comments Reschedule 07/19/2023 Encounter Details Date Type Department Care Team ([facility] st Contact Info) Description 07/19/2023 Telephone [facility] MEDICINE [address] [place] [address] Maria Teresa Levin FNP [address] [place] [address] Reschedule Social History Tobacco Use Types Packs/Day [...] AM EST Tc from pt requesting r/s 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 documented in this encounter Plan of Treatment Upcoming Encounters Date Type Department Care Team (Late st Contact Info) Description 06/24/2025 9:00 AM EST Office Visit [facility] OPTOMETRY [address] [place] [address] TarkaLinda, OD [address] [place] [address] 08/04/2025 11:15 AM EST Office Visit [facility] MEDICINE [address] [place] [address] MariaT eresa Levin FNP [address] [place] [address] 09/13/2025 9:30 AM EDT Telemedicine [facility] CHC MED & PEDS 505 [place] [address] 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, RN [address] [place] [address] documented as of this encounter Visit Diagnoses Not on filedocumented in this encounter Care Teams Tariff Expert Relationship Specialty Start Date End Date Maria Teresa Levin FNP [address] [place] [address] PCP - General Family Medicine 03/06/22 documented as of this encounter
--- OUTSIDE RECORDS SUMMARY | 2025-06-24 08:04 | XMS_ITS | Encounter Summary ---
Author Organization [employer] Address [address] [place] [address] Care Team Providers Care Warper Creeler Name Role Phone Maria Teresa Levin Primary Care Provider [phone] Reason for Visit * Reason Comments Med Refill Encounter Details Date Type Department Care Team (Late st Contact Info) Description 04/12/2024 Refill [facility] MEDICINE [address] [place] [address] Maria Teresa Levin FNP [address] [place], [place] [phone] Essential hypertension Social History Tobacco Use Types [...] Visit [facility] OPTOMETRY [address] [place] [address] Linda Del Cid, OD [address] [place] [address] 08/04/2025 11:15 AM EST Office Visit [facility] MEDICINE [address] [place] [address] Maria Teresa Levin FNP [address] [place] [address] 09/13/2025 9:30 AM EDT Telemedicine [facility] CHC MED & PEDS [address] [place] [address] 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, RN [address] [place] [address] documented as of this encounter Visit Diagnoses Diagnosis Essential hypertension Unspecified essential hypertension documented in this encounter Care Teams Warper Creeler Relationship Specialty Start Date End Date Maria Teresa Levin FNP [address] [place] [address] PCP - General Family Medicine 03/06/22 documented as of this encounter
--- OUTSIDE RECORDS SUMMARY | 2025-06-24 08:04 | XMS_ITS | Clinical Summary ---
Author Organization [employer] Address [address] [place] [address] Care Team Providers Care Rehabilitation Therapy Technician Name Role Phone Maria Teresa Leivn MERVIN Primary Care Provider [phone] Allergies Active Allergy Reactions Criticality Noted Date [...] bedtime for mild pain. 40 tablet 1 2025 Active Magnesium 400 MG capsuleIndicati ons:Routine [...] AT BEDTIME FOR CHOLESTEROL 90 tablet 3 Active alpha tocopherol (Vitamin E) 400 units capsule Take 1 capsule (400 Units) by mouth Once per day. 90 capsule 1 025 2025 Active oxyCODONE-aceta minophen (Percocet) 5-325 MG tabletIndicatio ns:Fibromyalgia Take 1 tablet by mouth every 6 (six) hours if needed for severe pain for up to 28 days. Do not start before June 12, 2025. 112 tablet 025 2025 Active lidocaine (Lidoderm) 5 % patchIndication s:Fibromyalgia Apply 1 patch topically if needed each day for moderate pain. Remove & discard patch within 12 hours or as directed by provider. 30 patch 3 025 2024 oxyCODONE-aceta minophen (Percocet) 5-325 MG tabletIndicatio ns:Fibromyalgia Take 1 tablet by mouth every 6 (six) hours if needed for severe pain for up to 28 days. 112 tablet 025 2024 Discontinued(R eorder (will not trigger notification to Pharmacy)) Active Problems Problem Noted Date Diagnosed Date Long-term current use of opiate analgesic 2023 Overview (03/23/2024): Medication: Percocet 5-325mg Q6H PRN (30 MME) Indication: fibromyalgia Last LICENSED PRACTICAL NURSE Agreement: 09/05/23 Tier II: Q3 month LICENSED PRACTICAL NURSE visits (tele OK every other) Assessment & Plan (08/20/2024 12:34 PM EST): Timeline: - 11/04/23: LICENSED PRACTICAL NURSE Tele, pill count WNL - 01/01/24: LICENSED PRACTICAL NURSE Tele, pill count WNL Assessment & Plan (04/17/2024 1:17 PM EDT): Timeline: - 11/04/23: LICENSED PRACTICAL NURSE Tele, pill count WNL - 01/01/24: LICENSED PRACTICAL NURSE Tele, pill count WNL - Next LICENSED PRACTICAL NURSE scheduled: 04/23/24 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 Declined on 02/11/24, follow up if/when interested in future Pure hypercholesterolemia 03/28/2023 Overview (05/13/2025): Continues rosuvastatin 10mg nightly Lab Results Component Value Date CHOL 105 04/29/2025 CHOL 107 01/11/2025 CHOL 110 11/12/2024 TRIG 98 04/29/2025 TRIG 130 01/11/2025 TRIG 109 11/12/2024 HDL 40 (L) 04/29/2025 HDL 41 01/11/2025 HDL 36 (L) 11/12/2024 LDLCHOLCAL 46 04/29/2025 LDLCHOLCAL 40 01/11/2025 LDLCHOLCAL 53 11/12/2024 -continue lifestyle modification Assessment & Plan (02/24/2025 5:27 PM EDT): Improvement in LDL and HDL values, cont current therapy Assessment & Plan (06/27/2023 3:40 PM EST): Repeat lipid panel, liver panel, and VitB12 Assessment & Plan (03/28/2023 12:25 PM EDT): Risk factors: Fam hx CVD, tobacco use ASCVD risk: 6.3% ([place] '08 calc) Shared decision making to continue with lifestyle interventions and initiation mod-intensity statin Start rosuvastatin 10mg nightly. Reviewed med safety and SE Routine health maintenance 07/13/2022 Overview (02/23/2025): Pap: s/p total hysterectomy with prior malignant uterine cervix neoplasm, followed by [facility]. Following with specialist. Mammo: BIRADS 1 on 08/13/23 Cologuard negative 01/14/25 Last PE: 02/26/23 Hep B titer status: non-immune Feb 2024, IZ declined Assessment & Plan (08/20/2024 12:33 PM EST): - Declines IZ today, encouraged to consider in future Assessment & Plan (03/28/2023 12:20 PM EDT): PAP: s/p total hysterectomy with prior malignant uterine cervix neoplasm, followed by [facility]. She will call to schedule f/u. Mammo: BIRADS 1 on 09/19/22 C-scope: Seen for pre-colonoscopy screening 04/2020. Reports completed Cologuard within past few year, normal. Interested in colonoscopy, referred 02/26/23. Eye: reports [facility] Dental: discuss at follow up Last PE: 02/26/23 Assessment & Plan (02/26/2023 10:10 AM EDT): PAP: s/p total hysterectomy with prior malignant uterine cervix neoplasm, followed by [facility]. She will call to schedule f/u. Mammo: 09/12/2021: BIRADS-1. Reports had one earlier this year, will request from [facility]. C-scope: Seen for pre-colonoscopy screening 04/2020. Reports completed Cologuard within past few year, normal. Interested in colonoscopy, referred 02/26/23. Eye: reports [facility]: discuss at follow up Assessment & Plan (07/14/2022 11:53 AM EST): PAP: s/p total hysterectomy with prior malignant uterine cervix neoplasm, followed by [facility]. She will call to schedule f/u. Mammo: 09/12/2021: BIRADS-1 C-scope: Seen for pre-colonoscopy screening 04/2020. Discuss at follow up Eye: referral to [facility] Dental: discuss at follow up Fatty liver disease, nonalcoholic 09/30/2018 Overview (02/24/2025): Abd US w/ elastography (01/2025): increased echotexture c/w steatosis. Velocity 1.67 m/s Assessment & Plan (05/13/2025 8:54 AM EST): -Hep C neg Feb 2023 -Hep B: eligible as of October 2023 Lab Results Component Value Date AST 36 (H) 04/29/2025 ALT 34 (H) 04/29/2025 TOTPROTEIN 7.5 04/29/2025 ALB 4.4 04/29/2025 ALP 84 04/29/2025 TOTALBILIRUB 0.4 04/29/2025 - Plan to add Vit E supplementation - reviewed pros/cons - Encouraged to cont lifestyle interventions, monitor levels in 3mo Assessment & Plan (02/24/2025 5:29 PM EDT): [...] further resources Fibromyalgia 05/07/2016 Assessment & Plan (05/13/2025 8:55 AM EST): -Continues with oxycodone-APAP 5mg Q6H PRN -Continues with cyclobenzaprine PRN, heat, and massage -Encouraged [facility] Acupuncture clinic, and to continue with pharm and non-pharm modalities of pain control -Previously following with [facility] -Labs: AYAD, RF, neg October 2023. Mild elevation of CRP and sed rate -Currently with flare of back pain, XR thoracic reassuring. Lidocaine patches prescription sent to pharmacy. Assessment & Plan (08/20/2024 12:36 PM EST): -Continues with oxycodone-APAP 5mg Q6H PRN -Continues with cyclobenzaprine PRN, heat, and massage -Encouraged [facility] Acupuncture clinic, and to continue with pharm and non-pharm modalities of pain control -Previously following with [facility] -Labs: AYAD, RF, neg October 2023. Mild elevation of CRP and sed rate Assessment & Plan (02/12/2024 5:42 PM EDT): -Continues with oxycodone-APAP 5mg Q6H PRN -Continues with cyclobenzaprine PRN, heat, and massage -Encourage [facility] Acupuncture clinic -Previously following with [facility] -Labs: AYAD, RF, neg October 2023. Mild elevation of CRP and sed rate Assessment & Plan (10/17/2023 9:07 AM EDT): -Continues with oxycodone-APAP 5mg Q8H -Continues with cyclobenzaprine PRN, heat, and massage -Encourage [facility] Acupuncture clinic -Previously following with [facility] -Plan: trial Celebrex PRN instead of ibuprofen. Reviewed med safety and SE. Repeat lab work including AYAD given polyarthralgias and reported swelling of upper extremities Assessment & Plan (06/27/2023 3:41 PM EST): -Currently controlled with oxycodone-APAP 5mg Q8H -Continues with cyclobenzaprine PRN, heat, and massage -Encourage [facility] Acupuncture clinic and group medical visits -Previously following with [facility] Assessment & Plan (03/28/2023 12:16 PM EDT): -Currently controlled with oxycodone-APAP 5mg Q8H -Continues with cyclobenzaprine PRN, heat, and massage -Encourage [facility] Acupuncture clinic -Upcoming appt with [facility] Assessment & Plan (02/26/2023 10:02 AM EDT): -Currently controlled with oxycodone-APAP 5mg. Increase from Q8H to Q6H PRN x 1 month as pt experiencing especially stressful time that is triggering fibro flares. Re-eval in 1 month -Continues with cyclobenzaprine PRN, heat, and massage -Encouraged [facility] Acupuncture clinic -Followed by [facility] Assessment & Plan (07/14/2022 11:58 AM EST): -Currently controlled with oxycodone 5mg Q8H PRN. Will switch back to oxycodone-acetaminophen to eliminate daily use of ibuprofen 800mg TID (following with LICENSED PRACTICAL NURSE RN) -Continues with cyclobenzaprine PRN, heat, and massage -Encouraged [facility] Acupuncture clinic -Followed by [facility] Follow up in 3 months for chronic conditions, sooner as needed. Vitamin D deficiency 05/07/2016 Assessment & Plan (05/13/2025 8:52 AM EST): - Well controlled off supplementation, repeat 3 mo Assessment & Plan (02/24/2025 5:28 PM EDT): - Plan to discontinue Vit D supplementation at this time. 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 (Primary Dx) 06/17/2025 Travel 06/10/2025 Travel 06/10/2025 Refill [facility] MEDICINE [address] [place] [address] Maria Teresa Levin FNP Fibromyalgia 05/31/2025 Telephone [facility] [address] [place] [address] 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, JEB 05/31/2025 Telephone [facility] MEDICINE [address] [place] [phone] Maria Teresa Levin FNP Appointment Request 05/26/2025 Travel 05/14/2025 Refill [facility] MEDICINE [address] [place] [address] Maria Teresa Levin FNP Fibromyalgia 05/05/2025 9:00 AM EDT Office Visit [facility] MED[facility]INE [address] [place] [address] Maria Teresa Levin FNP Fibromyalgia (Primary Dx); Prediabetes; Pure hypercholesterolemia; Fatty liver disease, nonalcoholic; Vitamin D deficiency 05/05/2025 Travel 04/28/2025 Travel 04/27/2025 1:00 PM EDT Clinical Support [facility] [address] [place] [address] 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, 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 pain of left knee (Primary Dx) 04/27/2025 Telephone [facility] [address] [place] [address] 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 RN 04/27/2025 Travel 04/20/2025 Travel 04/14/2025 Telephone [facility] [address] [place] [address] 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 RN 04/14/2025 Refill [facility] MEDICINE [address] [place] [address] Maria Teresa Levin FNP Fibromyalgia 03/31/2025 Refill [facility] WALK-IN CENTER [address] [place] [address] Gale Rodney DO from Last 3 Months Family History Medical [...] Sign Reading Time Taken Comments Blood Pressure 120/60 05/05/2025 8:59 AM EDT Pulse 85 05/05/2025 8:59 AM EDT Temperature 36.6 C (97.8 F) 05/05/2025 8:59 AM EDT Respiratory Rate 13 05/05/2025 8:59 AM EDT Oxygen Saturation 98% 05/05/2025 8:59 AM EDT Inhaled Oxygen Concentration - - Weight 90 kg (198 lb 6 oz) 05/05/2025 8:59 AM ED T Height 157.5 cm (5' 2 ) 05/05/2025 8:59 AM EDT Body Mass Index 36.28 05/05/2025 8:59 AM EDT Plan of Treatment Upcoming Encounters Date Type Department Care Team (Late st Contact Info) Description 06/24/2025 9:00 AM EST Office Visit [facility] [address] [place], [place] [phone] Linda Del Cid, OD [address] [place], [place] [phone] 08/04/2025 11:15 AM EST Office Visit [facility] MEDICINE [address] [place], [place] [phone] Maria Teresa Levin FNP [address] [place], [place] [phone] 09/13/2025 9:30 AM EDT Telemedicine [facility] [address] [place], [place] [phone] 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, RN [address] [place], [place] [phone] Health Maintenance Due Date Last Done Comments CT Colonography 1969 Colonoscopy 1969 FIT 1969 Sigmoidoscopy 1969 RSV Patients and Patients Aged 60 years or older (1 - Risk 50-74 years 1-dose series) 2019 Mammogram 08/13/2024 08/13/2023, 020 12/2023, 08/13/2023, Additional history exists Alcohol/Substance Use Screening 08/19/2025 08/19/2024 DTaP/Tdap/Td Vaccines [...] Screening 11/18/2025 11/18/2024 SDOH Screening 11/18/2025 11/18/2024 Influenza Vaccine (#1) 2026 Postp oned from 03/08/2025 (Patient Refused) FOBT 01/14/2026 01/14/2025, 01/09/2022 Diabetes: Hemoglobin A1C 04/29/2026 025, 01/11/2025, 11/12/2024, Additional history exists Tobacco Screening 05/05/2026 05/05/2025 COVID-19 Vaccine ( season) 2026 Postponed from 03/08/2025 (Patient Refused) Colorectal Cancer Screening 01/15/2028 FIT DNA/Cologuard 01/15/2028 01/14/2025, 01/09/2022 Lipid Panel 04/29/2030 04/29/2025, 07/0 01/2025, 11/12/2024, Additional history exists HIV Screening Completed 09/24/2024, 02/06, 12/25/2021 Hepatitis [...] Comments POCT KEZIA-14 URINE DRUG SCREEN Routine 06/17/2025 9:11 AM EST halfway (current) use of opiate analgesic XR THORACIC SPINE 2 VIEWS Routine 04/29/2025 6:48 AM EDT Acute midline thoracic back pain VITAMIN D,25-OH,TOTAL,IA Routine 04/29/2025 6:40 AM EDT Routine health maintenance LIPID PANEL, STANDARD Routine 04/29/2025 6:40 AM EDT Prediabetes HEMOGLOBIN A1C Routine 04/29/2025 6:40 AM EDT Prediabetes HEPATIC FUNCTION PANEL Routine 04/29/2025 6:40 AM EDT Fatty liver disease, nonalcoholic POCT KEZIA-14 URINE DRUG SCREEN Routine 04/27/2025 12:55 PM EDT Chronic pain of left knee LAB COLOGUARD COLON CANCER SCREEN Routine 01/14/2025 7:05 AM EDT Screening for colon cancer HEPATITIS C VIRAL RNA, QUANTITATIVE, REAL-TIME PCR Routine 09/24/2024 7:35 AM EDT Healthcare maintenance HIV 1/2 ANTIGEN/ANTIBODY, FOURTH GENERATION W/RFL Routine 09/24/2024 7:35 AM EDT Healthcare maintenance BI MAMMOGRAM DIAGNOSTIC TOMOSYNTHESIS BILATERAL Routine 08/13/2023 9:00 AM EST Breast pain in female from Last 3 Months or Most Recently Relevant to Health Maintenance Results * (ABNORMAL) POCT KEZIA-14 Urine Drug Screen (06/17/2025 9:11 AM EST) Only the most recent of2 resultswithin the time period is included. THC Negative Negative Cocaine Screen, Urine Negative [...] obtained by clean catch procedure / Unknown 06/17/2025 9:11 AM EST Narrative 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 RN - 06/17/2025 9:11 AM EST . Internal Pass Control Lot# [id number] Exp: 04-13-26 Maria Teresa Levin SOFTWARE RELEASE MANAGER POINT OF CARE TEST ENTER/EDIT ORDERABLES Final Result * XR Thoracic Spine 2 Views (04/29/2025 6:48 AM EDT) Anatomical Region Laterality Modality Spine, T-spine Radiographic Suzanna ging 04/29/2025 6:48 AM EDT Narrative 04/29/2025 6:58 AM EDT [address] [address] XRay Report Signed Patient: Edelmira Bartholomew MR#: [id number] : 1970 Acct:[id number] Age/Sex: 55 / F ADM Date: 04/29/25 Loc: [facility] Attending Dr: Maria Teresa JEFFRIES Ordering Physician: Maria Teresa Levin Date of Service: 04/29/25 Procedure(s): XR thoracic spine 2V Accession Number(s): [id number] cc: Maria Teresa Levin Reason for Exam: ACUTE MIDLINE THORACIC BACK PAIN EXAMINATION: XR THORACIC SPINE 2 VIEWS HISTORY: ACUTE MIDLINE THORACIC BACK PAIN COMPARISON: There are no prior studies available for comparison. FINDINGS: AP and lateral views of the thoracic spine are submitted. Osseous mineralization is normal. The vertebral bodies maintain normal height without evidence of fracture or subluxation. There is mild levoscoliosis. The intervertebral disc spaces are preserved. The visualized paraspinal soft tissues are unremarkable. XR/XR thoracic spine 2V IMPRESSION: Mild levoscoliosis. Otherwise unremarkable examination of the thoracic spine. Electronically signed by: Chas Peguero MD 04/29/2025 06:55 AM EDT Dictated By: Chas Peguero MD Signed By: <Electronically signed by Chas Peguero MD in OV> 04/29/2555 DD/ 7 TD/TT: 04/29/25651 Outside Contractor Sales: Procedure Note Donotuseinterpreter, Image - 04/29/[address] [address] XRay Report Signed Patient: Edelmira Bartholomew YMR#: [id number] : 1970Acct:[id number] Age/Sex: 55 / FADM Date: 04/29/25 Loc: [facility] Attending Dr: Maria Teresa JEFFRIES Ordering Physician: Maria Teresa Levin Date of Service: 04/29/25 Procedure(s): XR thoracic spine 2V Accession Number(s): [id number] cc: Maria Teresa Levin Reason for Exam: ACUTE MIDLINE THORACIC BACK PAIN EXAMINATION: XR THORACIC SPINE 2 VIEWS HISTORY: ACUTE MIDLINE THORACIC BACK PAIN COMPARISON: There are no prior studies available for comparison. FINDINGS: AP and lateral views of the thoracic spine are submitted. Osseous mineralization is normal. The vertebral bodies maintain normal height without evidence of fracture or subluxation. There is mild levoscoliosis. The intervertebral disc spaces are preserved. The visualized paraspinal soft tissues are unremarkable. XR/XR thoracic spine 2V IMPRESSION: Mild levoscoliosis. Otherwise unremarkable examination of the thoracic spine. Electronically signed by: Chas Peguero MD 04/29/2025 06:55 AM EDT Dictated By: Chas Peguero MD Signed By: <Electronically signed by Chas Peguero MD in OV> 04/29/25 0655 DD/ TD/TT: 04/29/2552 Outside Contractor Sales: Maria Teresa JEFFRIES IMG XR PROCEDURES Edited Resul t - Final * Vitamin D, 25-Hydroxy, Total, Immunoassay (04/29/2025 6:40 AM EDT) Vitamin D 25-OH Total 39.3 >30 ng/mL [facility] Comment: Health Based Reference Values*< 20 ng/mL Hcuvcqmps41-85 ng/mL Insufficient> 30 ng/mL Sufficient*Kaylie ROBERSON. N Engl J Med. 2007;357:266-280There is no well-established upper level of normal vitamin Dlevels. Some laboratories use 50 ng/mL as an upper limit ofnormal. However, toxicity is patient-dependent and may occurat any level. Careful correlation with the patient'spresentation is necessary and, if there is concern forvitamin D toxicity, treatment should be consideredirrespective of the serum level.Care must be taken in interpreting Vitamin D results fromdifferent laboratories and methodologies. Published datademonstrated that results from patients undergoinghemodialysis may show a negative bias when tested withvarious automated 25-OH vitamin D assays when compared toLC-MS/MS.When testing samples from patients whose predominant form ofVitamin D is Vitamin D2, such as patients receiving VitaminD2 supplementation, results that are subtherapeutic shouldbe confirmed with another method such as LC-MS/MS. Blood Venous blood specimen / Unknown 04/29/2025 6:40 AM EDT 04/29/2025 6:40 AM EDT Maria Teresa Levin [facility] BLOOD ORDERABLES Final Res ult Performing Organization Address [facility] de Phone Number [facility] [address] [place] [phone] * Hemoglobin A1c (04/29/2025 6:40 AM EDT) Hemoglobin A1c 5.8 <6.0 % [facility] Comment:Hemoglobin A1C Refer ence Range Adults: 4.8 - 6.0 % Non diabetic: < 6.0 % Goal: < 7.0 %Additional Action Suggested: > 8.0 %Note: Hemoglobin A1c results are invalid for patients with abnormal amounts of HbF. Blood transfusions may impact the HbA1c concentration in the patient sample. Estimated Average Glucose 120 mg/dL [facility] Comment:eAG = Estimated ave rage glucose which is %A1C expressed asaverage glucose, using the formula of the Z7Y-TxszbkxYebiznr Glucose study (ADAG), Diabetes Care, Vol.31,#8,2007 Blood Venous blood specimen / Unknown 04/29/2025 6:40 AM EDT 04/29/2025 6:40 AM EDT us Maria Teresa Levin [facility] BLOOD ORDERABLES Final Res ult Performing Organization Address [facility] Co de Phone Number [facility] [address] [place] [address] [phone] * (ABNORMAL) Hepatic Function Panel (04/29/2025 6:40 AM EDT) Pathologist [facility] Bilirubin, Total 0.4 0.0 - 1.0 mg/dL [facility] Bilirubin, Direct 0.2 0.0 - 0.5 mg/dL [facility] Aspartate Amino Transferase 36(H) 5 - 31 U/L [facility] Alanine Aminotransferase 34(H) 0 - 31 U/L [facility] Total Protein 7.5 6.5 - 8.0 g/dL [facility] Albumin Level 4.4 3.5 - 5.0 g/dL [facility] Alkaline Phosphatase 84 39 - 117 U/L [facility] Blood Venous blood specimen / Unknown 04/29/2025 6:40 AM EDT 04/29/2025 6:40 AM EDT us Maria Teresa Levin SOFTWARE RELEASE MANAGER LAB BLOOD ORDERABLES Final Res ult [facility] [address] [place] [phone] * (ABNORMAL) Lipid Panel, Standard (04/29/2025 6:40 AM EDT) [facility] Triglycerides 98 <150 mg/dL [facility] Comment:Desirable Triglyceri de: less than 150 mg/dLBorderline High Triglyceride 150-199 mg/dLHigh Triglyceride: 200-499 mg/dLVery High Triglyceride: greater than or equal to 5OO mg/dL Cholesterol 105 <200 mg/dL [facility] Comment:Desirable Cholestero l: less than 200 mg/dLBorderline High Cholesterol: 200-239 mg/dLHigh Cholesterol: greater than 239 mg/dL LDL Cholesterol Calculated 46 <100 mg/dL [facility] Comment:Desirable LDL: less than 100 mg/dLNear Optimal/Above Optimal LDL: 110- 129 mg/dLBorderline High LDL: 130-159 mg/dLHigh LDL: 160-189 mg/dLVery High LDL: greater than or equal to 190 mg/dL HDL Cholesterol 40(L) >40 mg/dL [facility] Comment:Desirable HDL: great er than 40 mg/dL Note: This HDL assay may give artificially low results in patients with liver disease. Blood Venous blood specimen / Unknown 04/29/2025 6:40 AM EDT 04/29/2025 6:40 AM EDT Maria Teresa Levin SOFTWARE RELEASE MANAGER LAB BLOOD ORDERABLES Final Res ult [facility] [address] [place] [address] [phone] * Cologuard?? colon cancer screening (01/14/2025 7:05 AM EDT) Cologuard Result Negative Negative 01/23/20 1:00 PM EDT [employer] (CLIA #:[id number]) Comment: The Cologuard (TM) test was performed [...] cancer. Following a negative Cologuard result, the [place] [employer] and U.S. Multi-Society Task Force screening guidelines recommend a Cologuard re-screening interval of 3 years. References: [place] [employer] Guideline for Colorectal Cancer Screening: https://www.cancer.org/cancer/wmuzc-blvzav-oswzkn/uhrarrcnx-jwwtuscow-vzvcvsr/ac s-rec ommendations.html.; Orville BAUER, Eleni THOMASON, Lo JamesK, Colorectal Cancer Screening: Recommendations for Physicians and Patients from the U.S. Multi-Society Task Force on Colorectal Cancer Screening , Am J Gastroenterology 2017; 112:4086-1268. TEST DESCRIPTION: Composite algorithmic analysis of stool [...] Campa et al, N Engl J Med 2014;370(14):4485-1384.) Cologuard may produce a false negative or false positive result (no colorectal cancer or precancerous polyp present at colonoscopy follow up). A negative Cologuard test result does not guarantee the absence of CRC or advanced adenoma (pre-cancer). The current Cologuard screening interval is every 3 years. ([place] [employer] and U.S. Multi-Society Task Force). Cologuard performance data in a 10,000 patient pivotal study using colonoscopy as the reference method can be accessed at the following location: www.[employer]My COI/results. Additional description of the Cologuard test process, warnings and precautions can be found at www.[employer].My [employer]I. Stool specimen (specimen) 01/14/2025 7:05 AM EDT 01/15/2025 10:54 AM EDT [facility] MOLECULAR DIAGNOSTICS ORDE RABLES Final Result Performing Organization Address [facility] Co de Phone Number [facility] (CLIA #:[id number]) [phone] [place], [place] [id number], * Hepatitis C Viral RNA, Quantitative, Real-Time PCR (09/24/2024 7:35 AM EDT) Pathologist [facility] Hepatitis C Viral Load <15 NOT DETECTED NOT DETECTED IU/mL [facility] HCV Log PCR <1.18 NOT DETECTED NOT DETECTED Log IU/mL [facility] Comment:For additional infor mation, please refer tohttp://education.[employer]/faq/UQV60j1(This link is being provided for informational/educational purposes only.)THIS TEST WAS PERFORMED AT:[employer] [place] [place] [id number] BORRERO MD Blood 09/24/2024 7:35 AM EDT 09/24/2024 7:35 AM EDT [facility] BLOOD ORDERABLES Final Res ult Performing Organization Address [facility] Co de Phone Number [facility] [address] [place] [phone] * HIV-1/2 Antigen and Antibodies, Fourth Generation, with Reflexes (09/24/2024 7:35 AM EDT) Pathologist [facility] HIV AB/AG Nonreactive Nonreactive [facility] Comment:HIV-1 p24 Ag and/or HIV-1/HIV-2 Ab not detected.A test result that is nonreactive does not exclude thepossibility of exposure to or infection with HIV-1 and/orHIV-2. Nonreactive results in this assay for individualswith prior exposure to HIV-1 and/or HIV-2 may be due toantigen and antibody levels that are below the limit ofdetection of this assay.[employer] HIV Ag/Ab Combo assay result andsupplemental assay results should be interpreted inconjunction with the patient's clinical presentation,history and other laboratory results. If the results areinconsistent with clinical evidence, additional testing issuggested to confirm the result. Blood Venous blood specimen / Unknown 09/24/2024 7:35 AM EDT 09/24/2024 7:35 AM EDT us Maria Teresa Levin SOFTWARE RELEASE MANAGER LAB BLOOD ORDERABLES Final Res ult [facility] [address] [place] [phone] * BI Mammogram Diagnostic Tomosynthesis Bilateral (08/13/2023 9:00 AM EST) Anatomical Region Laterality Modality Breast Bilateral Mammography 08/13/2023 9:00 AM EST Narrative 08/13/2023 9:18 AM EST [facility] [address] [place] [address] Mammography Report Signed Patient: Edelmira Bartholomew MR#: [id number] : 1970 Acct:[id number] Age/Sex: 53 / F ADM Date: 08/13/23 Loc: HO.MAMMO Attending Dr: Maria Teresa JEFFRIES Ordering Physician: Maria Teresa Levin Results: 1Negat thelma Date of Service: 08/13/23 Follow Up: 1 Year From Orig ina Mammogram Procedure(s): MM tomosynthesis diagnostic BI Accession Number(s): [id number] cc: Maria Teresa Levin EXAMINATION: MM DIAGNOSTIC [...] MD in OV> 08/13/23913 DD/ 09 TD/TT: Outside Contractor Sales: Procedure Note Donotuseinterpreter, Image - 08/13/2023 [facility] [address] [place], [place] [address] Mammography Report Signed Patient: Edelmira Bartholomew YMR#: [id number] : 1970Acct:[id number] Age/Sex: 53 / FADM Date: 08/13/23 Loc: HO.MAMMO Attending Dr: Maria Teresa Levin SOFTWARE RELEASE MANAGER Ordering Physician: Maria Teresa LevinPResults: 1Negat thelma Date of Service: 08/13/23Follow Up: 1 Year From Orig inal Mammogram Procedure(s): MM tomosynthesis diagnostic BI Accession Number(s): [id number] cc: Maria Teresa Levin SOFTWARE RELEASE MANAGER EXAMINATION: MM DIAGNOSTIC DIGITAL BREAST TOMOSYNTHESIS, BILATERAL [...] MD in OV> 08/13/23913 DD/ 9 TD/TT: Outside Contractor Sales: Maria Teresa Levin SOFTWARE RELEASE MANAGER IMG BI PROCEDURES Edited Resul t - Final from Last 3 Months or Most Recently Relevant to Health Maintenance Insurance Care Teams Rehabilitation Therapy Technician Relationship Specialty Start Date End Date Maria Teresa Levin FNP [address] [place] [phone] PCP - General Family Medicine 03/06/22
--- OUTSIDE RECORDS SUMMARY | 2025-06-24 08:04 | XMS_ITS | Encounter Summary ---
Author Organization [employer] Address [address] [place] [address] Care Team Providers Care Community Outreach Director Name Role Phone Maria Teresa Levin Primary Care Provider [phone] Reason for Visit * Reason Comments Med Refill Encounter Details Date Type Department Care Team (Late st Contact Info) Description 06/23/2025 Refill [facility] MEDICINE [address] [place] [address] Maria Teresa Levin FNP [address] [place] [address] Social History Tobacco Use Types Packs/Day Years [...] Upcoming Encounters Date Type Department Care Team ([facility] st Contact Info) Description 06/24/2025 9:00 AM EST Office Visit [facility] OPTOMETRY [address] [place] [address] Linda Del Cid, OD [address] [place] [address] 08/04/2025 11:15 AM EST Office Visit [facility] MEDICINE [address] [place] [address] Maria Teresa Levin FNP [address] [place] [address] 09/13/2025 9:30 AM EDT Telemedicine [facility] CHC MED & PEDS [address] [place] [address] 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, JEB [address] [place] [address] documented as of this encounter Visit Diagnoses Not on filedocumented in this encounter Additional Health Concerns Assessment Noted Time PHQ-9 Depression Total Score: 2 11/19/19 25 9:10 AM EDT documented as of this encounter Care Teams Community Outreach Director Relationship Specialty Start Date End Date Maria Teresa Levin FNP [address] [place] [address] PCP - General Family Medicine 03/06/22 documented as of this encounter
--- OUTSIDE RECORDS SUMMARY | 2025-06-24 08:04 | XMS_ITS | Encounter Summary ---
Author Organization [employer] Address [address] [place] [address] Care Team Providers Care Grades 9 Through 12 Teacher Name Role Phone Maria Teresa Levin Primary Care Provider [phone] Encounter Details Date Type Department Care Team ([facility] Contact Info) Description 11/11/2023 Orders Only [facility] CHC MED & PEDS [address] [place], [place] [phone] Maria Teresa Levin FNP [address] [place] [address] Social History Tobacco Use Types Packs/Day Years [...] 06/24/2025 9:00 AM EST Office Visit [facility] OPTOMETRY [address] [place] [address] Linda Del Cid, OD [address] [place] [address] 08/04/2025 11:15 AM EST Office Visit [facility] MEDICINE [address] [place] [address] Maria Teresa Levin FNP [address] [place] [address] 09/13/2025 9:30 AM EDT Telemedicine [facility] CH[facility] MED & PEDS [address] [place] [address] 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, JEB [address] [place] [address] documented as of this encounter Visit Diagnoses Not on filedocumented in this encounter Care Teams Grades 9 Through 12 Teacher Relationship Specialty Start Date End Date Maria Teresa Levin FNP [address] [place] [address] PCP - General Family Medicine 03/06/22 documented as of this encounter
--- OUTSIDE RECORDS SUMMARY | 2025-06-24 08:04 | XMS_ITS | Encounter Summary ---
Author Organization [employer] Address [address] [place] [address] Care Team Providers Care Silk Brusher Name Role Phone Maria Teresa Levin Primary Care Provider [phone] Reason for Visit * Reason Onset Date Comments Med Refill 03/22/2024 Encounter Details Date Type Department Care Team ([facility] [address] Contact Info) Description 03/22/2024 Refill [facility] CHC MED & PEDS [address] [place], [place] [phone] Maria Teresa Levin FNP [address] [place] [address] Long-term current use of opiate analgesic (Primary [...] Description 06/24/2025 9:00 AM EST Office Visit [facility] OPTOMETRY [address] [place] [address] Linda Del Cid, OD [address] [place] [address] 08/04/2025 11:15 AM EST Office Visit [facility] MEDICINE [address] [place] [address] Maria Teresa Levin FNP [address] [place] [address] 09/13/2025 9:30 AM EDT Telemedicine [facility] CHC MED & PEDS [address] [place] [address] 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, JEB [address] [place] [address] documented as of this encounter Visit Diagnoses Diagnosis Long-term current use of opiate analgesic- Primary Encounter for long-term (current) use of other medications Fibromyalgia Unspecified myalgia and myositis documented in this encounter Care Teams Silk Brusher Relationship Specialty Start Date End Date Maria Teresa Levin FNP [address] [place] [address] PCP - General Family Medicine 03/06/22 documented as of this encounter
[2025-06-24 10:24] LABS: Alanine Aminotransferase 33 U/L (0-31); Albumin Level 4.2 g/dL (3.5-5.0); Alkaline Phosphatase 75 U/L (39-117); Aspartate Amino Transferase 38 U/L (5-31); Cholesterol 116 mg/dL (<200); HDL Cholesterol 40 mg/dL (>40); Total Protein 7.3 g/dL (6.5-8.0); Triglycerides 125 mg/dL (<150)
== END 2025-06-24 08:00 | disposition home or self-care (01) ==
LOC: HO.LAB 07:59
PROVIDERS: PCP Registered Nurse; Visit Provider Registered Nurse
DX: R73.03 Prediabetes (principal); E55.9 Vitamin D deficiency, unspecified; E78.00 Pure hypercholesterolemia, unspecified; K76.0 Fatty (change of) liver, not elsewhere classified
CPT/HCPCS: 36415; 80061; 80076; 82306; 83036